=== PATIENT | female | born 1940 | race Caucasian/White ===

== ENCOUNTER 2018-08-15 23:49 | Inpatient (IN) | payer OTHER ==
--- NOTE | 2018-08-15 23:56 | PDOC ---
Attending Attestation - Resident Resident Name: Lloyd Troy - ED Attending Attestation I have performed the following: I have examined & evaluated the patient, The case was reviewed & discussed with the resident, I agree w/resident's findings & plan, Exceptions are as noted - HPI HPI: 08/16/18 00:25 Ms Aleman is a 77 yo F who presents to the ER for evaluation of hemoptysis She has a history of GERD, hypertension, diabetes, hypercapnic respiratory failure s/p trach, chronic renal insufficiency, She was noted to have hemoptysis No fevers Pt noted to be anemic - Physicial Exam PE: 08/16/18 00:31 Pt is pale appearing Contracted Trach in place, blood tinged sputum Rhoncherous breath sounds through out Faint heart sounds No abd tenderness Lin in place Rectal tube in place Bilateral upper extremity edema (R>L) - Medical Decision Making 08/16/18 00:31 Pt presents to the ER due to hemoptysis DD includes: pneumonia, CHF, TB, Aspergilosis, PE Will do: Labs - sepsis orderset CXR IVF ABX EKG Re assess SR rate of 104 bpm, axis nml, intervals nml, no st elevation, RSR' v2, t waves upright, no st elevation or depression 08/16/18 01:50 Laboratory Tests 08/16/18 08/16/18 00:40 01:00 WBC 16.8 H Hgb 7.0 L Hct 21.8 L Plt Count 803 H Neutrophils % 86.6 H ABG pH 7.47 H ABG pCO2 at Pt Temp 42.4 ABG pO2 at Pt Temp 87.2 ABG HCO3 30.7 H ABG O2 Sat (Measured) 97.7 CXR not done yet 08/16/18 02:38 CXR with right lung effusion, pt rotated, Moderate effusion, ? hemorrhage Will do CTA chest Images pending
--- NOTE | 2018-08-15 23:57 | PDOC ---
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 Vital from half-way are 97.8, 98, 18, 120/70. 08/16/18 03:44 Past History - Past Medical History Allergies/Adverse Reactions: Allergies Allergy/AdvReac Type Severity Reaction Status Date / Time clopidogrel Allergy Verified 08/16/18 00:20 Review of Systems - Review of Systems Able to Perform ROS?: No (non-verbal) *Physical Exam - Physical Exam General Appearance: Yes: Other (anansarca un upper half of body. ventilated. trach. Lin. ) HEENT: positive: EOMI, BERE Respiratory/Chest: positive: Chest Tender, Labored Respiration ( ), Decreased Breath Sounds, Crackles Cardiovascular: positive: Regular Rhythm, Regular Rate, S1, S2 Gastrointestinal/Abdominal: positive: Normal Bowel Sounds, Flat, Soft. negative : Tender Integumentary: positive: Pale, Cold, Clammy Neurologic: positive: Other (non-verbal) ED Treatment Course - LABORATORY CBC & Chemistry Diagram: 08/16/18 01:00 08/16/18 01:00 Medical Decision Making - Medical Decision Making 08/16/18 03:57 severe sepsis from UTI vs pneumonia vs acute CHF +/- Pulmonary Embolism. Septic workup ordered. Fever + tachy + elevated WBC + lactate 08/16/18 05:33 UA pending. Starting vanc/zosyn with admission to ICU. Patient DNR. Son signed hospital version of DNR 08/16/18 05:36 CXR showing right plueral effusion. Will obtain CTA to confirm nature of opacity. Concern from radiology that effusion could be blood due to patient's anemia and hemoptysis. Will also r/o PE *DC/Admit/Observation/Transfer Diagnosis at time of Disposition: Sepsis, Pleural effusion, UTI (urinary tract infection) due to urinary indwelling catheter - Discharge Dispostion Condition at time of disposition: Fair Decision to Admit order: Yes - Referrals Referrals: David Fitzgerald MD [Primary Care Provider] - - Patient Instructions - Post Discharge Activity
[2018-08-16 00:45] LABS: ARTERIAL BLD GAS O2 SATURATION 97.7 % (90-98.9); ARTERIAL BLOOD GAS BASE EXCESS 6.9 meq/l (-2-2); ARTERIAL BLOOD GAS PCO2 42.4 mmHg (35-45); ARTERIAL BLOOD GAS PO2 87.2 mmHg (70-100); ARTERIAL BLOOD GAS pH 7.47 (7.35-7.45)
[2018-08-16 00:49] LABS: ALLENS TEST POSITIVE
[2018-08-16 01:36] LABS: BASO % 0.2 % (0-2.0); EOS % 1.2 % (0-4.5); HEMATOCRIT 21.8 % (32.4-45.2); LYMPH % 5.4 % (8-40); MCHC 32.2 g/dl (32.0-36.0); MEAN CELL VOLUME 74.5 fl (80-96); MEAN PLT VOLUME 7.5 fl (7.5-11.1); MONO % 6.6 % (3.8-10.2); NEUT % 86.6 % (42.8-82.8); PLATELET COUNT 803 K/MM3 (134-434); RBC 2.92 M/mm3 (3.60-5.2); RDW 16.8 % (11.6-15.6); WHITE BLOOD COUNT 16.8 K/mm3 (4.0-10.0)
[2018-08-16 01:58] LABS: INR 1.14 (0.83-1.09); PROTHROMBIN TIME (PATIENT) 13.5 SEC (9.7-13.0)
[2018-08-16 02:01] LABS: ACTIVATED PTT 26.7 SECONDS (25.2-36.5)
[2018-08-16 02:19] LABS: ALBUMIN 1.7 g/dl (3.4-5.0); ALK PHOS 151 U/L (45-117); ANION GAP 9 MMOL/L (8-16); BILIRUBIN,TOTAL 0.3 mg/dL (0.2-1); BLOOD UREA NITROGEN 34 mg/dL (7-18); CALCIUM 9.6 mg/dL (8.5-10.1); CHLORIDE 86 mmol/L (98-107); CO2 32 mmol/L (21-32); CREATININE 0.7 mg/dL (0.55-1.3); GLUCOSE,RANDOM 256 mg/dL (74-106); POTASSIUM 4.8 mmol/L (3.5-5.1); SGOT/AST 36 U/L (15-37); SGPT/ALT 41 U/L (13-61); SODIUM 126 mmol/L (136-145); TOT PROT 7.1 g/dl (6.4-8.2)
[2018-08-16] MEDS ORDERED: VANCOMYCIN 1 GRAM (PRE-DOCKED) 1,000 MG/250 ML BAG IVPB ONE ×3 (02:28→15:14)
[2018-08-16] MEDS ORDERED: PIPERACILLIN/TAZOB 4.5 GM 4.5 GM in DEXTROSE 5%-WATER 100 ML IVPB ONE (02:29)
[2018-08-16] MEDS ORDERED: PIPERACILLIN/TAZOB 4.5 GM 4.5 GM/100 ML BAG IVPB ONE (02:33)
[2018-08-16] MEDS ORDERED: SODIUM CHLORIDE 3,402 ML IV ONE (02:39)
[2018-08-16] MEDS ORDERED: FUROSEMIDE 40 MG/4 ML INJECTABLE VIAL IVPUSH ONE (03:03)
[2018-08-16 03:51] LABS: URINE APPEARANCE TURBID; URINE BILIRUBIN NEGATIVE (<2.0 mg/dL); URINE COLOR YELLOW; URINE GLUCOSE (UA) 1+ (NEGATIVE); URINE KETONE NEGATIVE (NEGATIVE); URINE LEUK ESTERASE 2+ (NEGATIVE); URINE NITRITE NEGATIVE (NEGATIVE); URINE PROTEIN 2+ (NEGATIVE); URINE UROBILINOGEN NEGATIVE mg/dL (0.2-1.0)
[2018-08-16 04:07] LABS: EPI CELLS MANY /HPF (FEW); URINE BACTERIA MANY /hpf (NONE SEEN); URINE MUCUS MANY; YEAST RARE
[2018-08-16] MEDS ORDERED: FUROSEMIDE 40 MG/4 ML INJECTABLE VIAL ONE (05:39)
--- NOTE | 2018-08-16 05:52 | HP ---
CHIEF COMPLAINT: Low H/H, Bloody Sputum PCP: Dr Cancino HISTORY OF PRESENT ILLNESS: This is a 77 y/o woman from [facility] significant past medical history of Trach- Vent dependency secondary to Respiratory Failure Hypercapnia, MRSA in Sputum, Renal Insufficiency. Who presents to the ED for low H/H, Bloody Sputum. Patient is non-verbal at baseline, unable to provide HPI. Per transfer record patient was sent in for Hgb 6.5, bloody secretions in trach. ER course was notable for: (1) Hgb 7.0, HCT21.8 (2) Na 126 (3) Lactic Acid 2.5 (4) Chest Xray- Moderate to large right pleural effusion and probable small left pleural effusion. Increased opacity within the right lung ? pulmonary hemorrhage or pneumonia cannot be excluded Recent Travel: none PAST MEDICAL HISTORY: Respiratory Failure, Hypercapnia- Trach- Vent dependency HTN DM GERD MDD CKD Stage 3 Dysphagia COPD MRSA in Sputum PAST SURGICAL HISTORY: Trach Social History: Smoking: Never Alcohol: Unknown Drugs: Unknown Resides in [place], [facility] Family History: Unable to Obtain Allergies clopidogrel Allergy (Verified 08/16/18 00:20) HOME MEDICATIONS: REVIEW OF SYSTEMS Trach Dependent- Non Verbal CONSTITUTIONAL: Absent: fever, chills, diaphoresis, generalized weakness, malaise, loss of appetite, weight change HEENT: Absent: rhinorrhea, nasal congestion, throat pain, throat swelling, difficulty swallowing, mouth swelling, ear pain, eye pain, visual changes CARDIOVASCULAR: Absent: chest pain, syncope, palpitations, irregular heart rate, lightheadedness , peripheral edema RESPIRATORY: Absent: cough, shortness of breath, dyspnea with exertion, orthopnea, wheezing, stridor, hemoptysis GASTROINTESTINAL: Absent: abdominal pain, abdominal distension, nausea, vomiting, diarrhea, constipation, melena, hematochezia GENITOURINARY: Absent: dysuria, frequency, urgency, hesitancy, hematuria, flank pain, genital pain MUSCULOSKELETAL: Absent: myalgia, arthralgia, joint swelling, back pain, neck pain SKIN: Absent: rash, itching, pallor HEMATOLOGIC/IMMUNOLOGIC: Absent: easy bleeding, easy bruising, lymphadenopathy, frequent infections ENDOCRINE: Absent: unexplained weight gain, unexplained weight loss, heat intolerance, cold intolerance NEUROLOGIC: Absent: headache, focal weakness or paresthesias, dizziness, unsteady gait, seizure, mental status changes, bladder or bowel incontinence PSYCHIATRIC: Absent: anxiety, depression, suicidal or homicidal ideation, hallucinations. PHYSICAL EXAMINATION Vital Signs - 24 hr 08/15/18 08/16/18 08/16/18 23:50 00:30 02:46 Temperature 98.7 F Pulse Rate 71 Pulse Rate [ 103 H Left] Respiratory 17 37 H 22 H Rate Blood Pressure 110/71 Blood Pressure 130/90 [Right Arm] O2 Sat by Pulse 99 98 Oximetry (%) 08/16/18 03:25 Temperature Pulse Rate Pulse Rate [ Left] Respiratory 30 H Rate Blood Pressure Blood Pressure [Right Arm] O2 Sat by Pulse Oximetry (%) GENERAL: Trach- Vent dependent non -verbal- at baseline in no acute distress. HEAD: Normal with no signs of trauma. EYES: Pupils equal, round and reactive to light, sclera anicteric, conjunctiva clear. No lid lag. EARS, NOSE, THROAT: thick yellow frothy oral secretions, Ears normal, nares patent, oropharynx clear without exudates. Moist mucous membranes. NECK: .trach- vent dependent Normal range of motion, supple without lymphadenopathy, JVD, or masses. LUNGS: Breath sounds coarse rhonchi with scattered wheeze throughout. No accessory muscle use. HEART: Regular rate and rhythm, normal S1 and S2 without murmur, rub or gallop. ABDOMEN: PEG noted to mid abdomen with dried gastric sections around dressing. Soft, nontender, not distended, normoactive bowel sounds, no guarding, no rebound, no masses. No hepatomegaly or splenomegaly. RECTUM: Rectal tube noted GENITOURINARY: Indewelling Lin with foamy dark yellow urine in tubing and drainage bag MUSCULOSKELETAL: Severe contractures at all joints. No bony deformities or tenderness. No CVA tenderness. UPPER EXTREMITIES: 2+ pulses, warm, well-perfused. No cyanosis. No clubbing. No peripheral edema. LOWER EXTREMITIES: 2+ pulses, warm, well-perfused. No calf tenderness. No peripheral edema. NEUROLOGICAL: Cranial nerves II-XII not intact. Non verbal. Non-ambulatory Gait not observed PSYCHIATRIC: non verbal, no voluntary eye contact- baseline SKIN: macular papular rash to face, warm, dry, normal turgor, normal capillary refill. Laboratory Results - last 24 hr 08/15/18 08/16/18 08/16/18 23:54 00:15 00:40 WBC Cancelled Corrected WBC (auto) Cancelled RBC Cancelled Hgb Cancelled Hct Cancelled MCV Cancelled MCH Cancelled MCHC Cancelled RDW Cancelled Plt Count Cancelled MPV Cancelled Absolute Neuts (auto) Cancelled Neutrophils % Cancelled Lymphocytes % Cancelled Monocytes % Cancelled Eosinophils % Cancelled Basophils % Cancelled Nucleated RBC % Cancelled Platelet Estimate Cancelled Platelet Comment Cancelled PT with INR INR PTT (Actin FS) Puncture Site Right radial ABG pH 7.47 H ABG pCO2 at Pt Temp 42.4 ABG pO2 at Pt Temp 87.2 ABG HCO3 30.7 H ABG O2 Sat (Measured) 97.7 ABG O2 Content 6.8 L* ABG Base Excess 6.9 H French Test Positive Carboxyhemoglobin 2.0 Methemoglobin 0.0 L O2 Delivery Device Vent Oxygen Flow Rate 50 Vent Rate 18 PEEP 5.0 Pressure Support Vent 360 Sodium Potassium Chloride Carbon Dioxide Anion Gap BUN Creatinine Creat Clearance w eGFR Random Glucose Lactic Acid Calcium Total Bilirubin AST ALT Alkaline Phosphatase Troponin I Total Protein Albumin Urine Color Urine Appearance Urine pH Ur Specific Parker Urine Protein Urine Glucose (UA) Urine Ketones Urine Blood Urine Nitrite Urine Bilirubin Urine Urobilinogen Ur Leukocyte Esterase Urine WBC (Auto) Urine RBC (Auto) Ur Epithelial Cells Urine Bacteria Urine Mucus Urine Yeast Blood Type AB POSITIVE Antibody Screen Negative 08/16/18 08/16/18 08/16/18 01:00 01:00 01:00 WBC Corrected WBC (auto) RBC Hgb Hct MCV MCH MCHC RDW Plt Count MPV Absolute Neuts (auto) Neutrophils % Lymphocytes % Monocytes % Eosinophils % Basophils % Nucleated RBC % Platelet Estimate Platelet Comment PT with INR 13.50 H INR 1.14 H PTT (Actin FS) 26.7 Puncture Site ABG pH ABG pCO2 at Pt Temp ABG pO2 at Pt Temp ABG HCO3 ABG O2 Sat (Measured) ABG O2 Content ABG Base Excess French Test Carboxyhemoglobin Methemoglobin O2 Delivery Device Oxygen Flow Rate Vent Rate PEEP Pressure Support Vent Sodium 126 L Potassium 4.8 Chloride 86 L Carbon Dioxide 32 Anion Gap 9 BUN 34 H Creatinine 0.7 Creat Clearance w eGFR > 60 Random Glucose 256 H Lactic Acid 2.5 H* Calcium 9.6 Total Bilirubin 0.3 AST 36 ALT 41 Alkaline Phosphatase 151 H Troponin I < 0.02 Total Protein 7.1 Albumin 1.7 L Urine Color Urine Appearance Urine pH Ur Specific Parker Urine Protein Urine Glucose (UA) Urine Ketones Urine Blood Urine Nitrite Urine Bilirubin Urine Urobilinogen Ur Leukocyte Esterase Urine WBC (Auto) Urine RBC (Auto) Ur Epithelial Cells Urine Bacteria Urine Mucus Urine Yeast Blood Type Antibody Screen 08/16/18 08/16/18 08/16/18 01:00 01:00 02:30 WBC 16.8 H Corrected WBC (auto) RBC 2.92 L Hgb 7.0 L Hct 21.8 L MCV 74.5 L MCH 24.0 L MCHC 32.2 RDW 16.8 H Plt Count 803 H MPV 7.5 Absolute Neuts (auto) 14.5 H Neutrophils % 86.6 H Lymphocytes % 5.4 L Monocytes % 6.6 Eosinophils % 1.2 Basophils % 0.2 Nucleated RBC % 0 Platelet Estimate Platelet Comment PT with INR INR PTT (Actin FS) Puncture Site ABG pH ABG pCO2 at Pt Temp ABG pO2 at Pt Temp ABG HCO3 ABG O2 Sat (Measured) ABG O2 Content ABG Base Excess French Test Carboxyhemoglobin Methemoglobin O2 Delivery Device Oxygen Flow Rate Vent Rate PEEP Pressure Support Vent Sodium Potassium Chloride Carbon Dioxide Anion Gap BUN Creatinine Creat Clearance w eGFR Random Glucose Lactic Acid Calcium Total Bilirubin AST ALT Alkaline Phosphatase Troponin I Cancelled Total Protein Albumin Urine Color Yellow Urine Appearance Turbid Urine pH 5.0 Ur Specific Parker 1.021 Urine Protein 2+ H Urine Glucose (UA) 1+ H Urine Ketones Negative Urine Blood 3+ H Urine Nitrite Negative Urine Bilirubin Negative Urine Urobilinogen Negative Ur Leukocyte Esterase 2+ H Urine WBC (Auto) 1540 Urine RBC (Auto) 310 Ur Epithelial Cells Many Urine Bacteria Many Urine Mucus Many Urine Yeast Rare Blood Type Antibody Screen ASSESSMENT/PLAN: 77 y/o woman admitted to / for Sepsis secondary to UTI, Large Plueral Effusion , Anemia, Acute on Chronic Respiratory Failure, Hypercapnia, Hyponatremia for further evaluation of their emergent condition. Plan: Admit to /S vent dependent floor Sepsis likely secondary to UTI vs HCAP vs Aspiration Pneumonia Sepsis Criteria Met V: P 103, R 34, WBC 16.8, Lactic Acid 2.6, BUN 34 qSOFA 2 Blood cultures-pending Urine culture pending Urine for Legionella Chest Xray read as- large right pleural effusion, smaller left pleural effusion , increased opacity in right lung ?pulmonary hemorrhage or pneumonia cannot be excluded Wells Score 4 PERC Rule 4 CTA-pending r/o PE Fluid Resuscitation initiated in ED Vancomycin and Zosyn given in ED for MRSA, Pseudomonal coverage will continue Repeat Lactic Acid in am Maintain MAP > 65 Continue Vent settings: TV 360, R 18, FIO2 40%, PEEP 5 AB.47/42.4/87.2/30.7 Appreciate Pulmonology consult Appreciate ID consult Consider IR for R- Large Pleural Effusion Monitor vitals Continue duonebs Repeat BMP in am secondary to Hyponatremia Goal sodium correction 6-8meq/24hrs Appreciate Nephrology consult Anemia-monitor H/H will transfuse if Hgb < 7.0 Aspiration precautions Functional Quadriplegia- complete immobility due to frailty, requires total care , turn Q2h, Fer lift as needed, Heel Protectors, Fall precautions Continue home meds with parameters Will hold DM meds secondary to NPO FEN- Replete lytes, NPO DVT ppx- TEDS, Hold AC secondary to Anemia, monitor H/H resume AC as feasible Code Status: DNR Dispo: Requires Inpatient Care Problem List - Problem (1) Pleural effusion Code(s): J90 - PLEURAL EFFUSION, NOT ELSEWHERE CLASSIFIED (2) Sepsis Code(s): A41.9 - SEPSIS, UNSPECIFIED ORGANISM (3) Acute on chronic respiratory failure with hypercapnia Code(s): J96.22 - ACUTE AND CHRONIC RESPIRATORY FAILURE WITH HYPERCAPNIA (4) UTI (urinary tract infection) due to urinary indwelling catheter Code(s): T83.511A - I/I REACT D/T INDWELLING URETHRAL CATHETER, INIT; N39.0 - URINARY TRACT INFECTION, SITE NOT SPECIFIED (5) Tracheostomy care Code(s): Z43.0 - ENCOUNTER FOR ATTENTION TO TRACHEOSTOMY (6) HTN (hypertension) Code(s): I10 - ESSENTIAL (PRIMARY) HYPERTENSION (7) GERD (gastroesophageal reflux disease) Code(s): K21.9 - GASTRO-ESOPHAGEAL REFLUX DISEASE WITHOUT ESOPHAGITIS (8) Anemia Code(s): D64.9 - ANEMIA, UNSPECIFIED (9) Diabetes mellitus Code(s): E11.9 - TYPE 2 DIABETES MELLITUS WITHOUT COMPLICATIONS (10) COPD (chronic obstructive pulmonary disease) Code(s): J44.9 - CHRONIC OBSTRUCTIVE PULMONARY DISEASE, UNSPECIFIED (11) CKD (chronic kidney disease), stage III Code(s): N18.3 - CHRONIC KIDNEY DISEASE, STAGE 3 (MODERATE) (12) Functional quadriplegia Code(s): R53.2 - FUNCTIONAL QUADRIPLEGIA Visit type - Emergency Visit Emergency Visit: Yes ED Registration Date: 08/16/18 Care time: The patient presented to the Emergency Department on the above date and was hospitalized for further evaluation of their emergent condition. - New Patient This patient is new to me today: Yes Date on this admission: 08/16/18 - Critical Care Critical Care patient: No
[2018-08-16] MEDS: ALBUTEROL SO4 2.5/IPRATROPIUM 0.5 INH SOL 3 ML VIAL.NEB. NEB SCH ×4 (09:00→19:40)
--- NOTE | 2018-08-16 09:24 | PN ---
Progress Note, Physician - Current Medication List Current Medications: Active Medications Acetaminophen (Tylenol Oral Solution -) 650 mg GT Q6H PRN PRN Reason: PAIN OR FEVER Albuterol/Ipratropium (Duoneb -) 1 amp NEB RQID SARITA Vancomycin HCl 1,000 mg/ (Dextrose) 250 mls @ 200 mls/hr IVPB Q24H SARITA; Protocol Piperacillin Sod/Tazobactam (Sod 3.375 gm/ Dextrose) 50 mls @ 100 mls/hr IVPB Q8H-IV SARITA; Protocol Piperacillin Sod/Tazobactam (Sod 3.375 gm/ Dextrose) 50 mls @ 100 mls/hr IVPB Q8H-IV SARITA Stop: 08/16/18 18:29 Nicotine (Nicoderm Patch -) 7 mg TD DAILY SARITA Nystatin (Nystop Powder -) 1 applic TP BID SARITA Quetiapine Fumarate (Seroquel -) 100 mg GT BID SARITA Ranitidine HCl (Zantac Oral Solution -) 150 mg GT DAILY [facility] - Objective Vital Signs: Vital Signs Temperature 98.7 F 08/15/18 23:50 Pulse Rate 103 H 08/16/18 02:46 Respiratory Rate 33 H 08/16/18 07:00 Blood Pressure 130/90 08/16/18 02:46 O2 Sat by Pulse Oximetry (%) 98 08/16/18 02:46 Cardiovascular: Yes: S1, S2 Respiratory: Yes: Mechanically Ventilated Gastrointestinal: Yes: Normal Bowel Sounds, Soft Labs: CBC, BMP 08/16/18 01:00 08/16/18 01:00 INR, PTT INR 1.14 (0.83-1.09) H 08/16/18 01:00 Problem List - Problems (1) Acute on chronic respiratory failure with hypercapnia Assessment/Plan: -Vent support -Follow o2 sat -Pulm consult Code(s): J96.22 - ACUTE AND CHRONIC RESPIRATORY FAILURE WITH HYPERCAPNIA (2) Diabetes mellitus Assessment/Plan: -BGM Code(s): E11.9 - TYPE 2 DIABETES MELLITUS WITHOUT COMPLICATIONS (3) Lung malignancy Assessment/Plan: -Review old records -Oncology consult Code(s): C34.90 - MALIGNANT NEOPLASM OF UNSP PART OF UNSP BRONCHUS OR LUNG
[2018-08-16] MEDS ORDERED: NICOTINE 7 MG/24 HOURS TOPICAL PATCH TD SCH (10:00)
[2018-08-16] MEDS: ACETAMINOPHEN 650 MG/20.3 ML ORAL SOLUTION (CUPS) GT PRN (10:00)
[2018-08-16] MEDS: QUEtiapine FUMARATE 100 MG TABLET (FP) GT SCH ×2 (10:00→22:38)
[2018-08-16] MEDS: NYSTATIN POWDER 100,000 UNITS/GM - 15 GM TOPICAL POWDER TP SCH ×2 (10:00→22:38)
[2018-08-16] MEDS: RANITIDINE HCL 150 MG/10 ML UNIT-DOSE GT SCH (10:00)
[2018-08-16] MEDS ORDERED: PIPERACILLIN/TAZOB 3.375 GM 3.375 GM in DEXTROSE 5%-WATER - 50 ML IVPB SCH (10:00)
[2018-08-16] MEDS ORDERED: PIPERACILLIN/TAZOB 3.375 GM 3.375 GM/50 ML BAG IVPB ONE (10:06)
[2018-08-16] MEDS ORDERED: ALBUTEROL SO4 2.5/IPRATROPIUM 0.5 INH SOL 3 ML VIAL.NEB. NEB ONE ×3 (10:17→19:32)
[2018-08-16 10:42] LABS: ANION GAP 11 MMOL/L (8-16); BLOOD UREA NITROGEN 28 mg/dL (7-18); CALCIUM 8.8 mg/dL (8.5-10.1); CHLORIDE 93 mmol/L (98-107); CO2 26 mmol/L (21-32); CREATININE 0.5 mg/dL (0.55-1.3); GLUCOSE,RANDOM 87 mg/dL (74-106); MAGNESIUM 1.9 mg/dL (1.8-2.4); POTASSIUM 4.6 mmol/L (3.5-5.1); SODIUM 130 mmol/L (136-145)
[2018-08-16] MEDS ORDERED: QUEtiapine FUMARATE 100 MG TABLET (FP) ONE ×3 (11:09→22:31)
[2018-08-16] MEDS ORDERED: SODIUM CHLORIDE 500 ML IV STA ×2 (12:05→19:54)
--- NOTE | 2018-08-16 12:16 | CONSULT ---
Consultation: REQUESTING PROVIDER: CONSULT REQUEST: We have been asked to medically evaluate this patient for ( specify). 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 Pt is nonverbal at baseline and HPI is severely limited. We were asked to medically evaluate the patient due to hyponatremia to 126. Repeat labs this AM shows Na is resolving at 130 now. PMHx: Endstage COPD (trach and vent dependent) HTN DM MDD CKD Stage 3 GERD PSHx: Tracheostomy placement SocHx: Unable to obtain Lives in [facility] with total care Allergies: Clopidogrel FamHx: Unable to obtain REVIEW OF SYSTEMS: Unable to obtain due to pt's clinical condition PHYSICAL EXAMINATION Vital Signs - 24 hr 08/15/18 08/16/18 08/16/18 23:50 00:30 02:46 Temperature 98.7 F Pulse Rate 71 Pulse Rate [ 103 H Left] Respiratory 17 37 H 22 H Rate Blood Pressure 110/71 Blood Pressure 130/90 [Right Arm] O2 Sat by Pulse 99 98 Oximetry (%) 08/16/18 08/16/18 08/16/18 03:25 07:00 10:30 Temperature 97.7 F Pulse Rate Pulse Rate [ 97 H Left] Respiratory 30 H 33 H 32 H Rate Blood Pressure Blood Pressure 136/72 [Right Arm] O2 Sat by Pulse 97 Oximetry (%) 08/16/18 11:35 Temperature Pulse Rate Pulse Rate [ 95 H Left] Respiratory 24 H Rate Blood Pressure Blood Pressure 89/58 L [Right Arm] O2 Sat by Pulse 100 Oximetry (%) GENERAL: NAD, nonverbal (baseline), on respiratory, diaphoretic HEENT: NC/AT, RENALDO, sclera anicteric, thick secretions from trach noted. Dry-to -moist MM NECK: Secreations from LUNGS: Coarse breath sounds bilaterally; superimposed basillar expiratory wheezes. No crackles. No accessory muscle use. HEART: Tachycardic with regular rhythm, normal S1 and S2 without murmur ABD: Soft, nondistended, hypoactive BS, no grimmacing with palpation, no hepatomegaly, PEG tube noted with dried secretions around stoma. MUSCULOSKELETAL: Contracted extremities throughout EXTREMITIES: 2+ DP pulses, no peripheral edema NEUROLOGICAL: Unable to obtain due to nonverbal, nonambulatory and pt's clinical condition PSYCH: Eye contact made, nonverbal SKIN: Diaphoretic, warm, erythema on L sided clavicle noted Laboratory Results - last 24 hr 08/15/18 08/16/18 08/16/18 23:54 00:15 00:40 WBC Cancelled Corrected WBC (auto) Cancelled RBC Cancelled Hgb Cancelled Hct Cancelled MCV Cancelled MCH Cancelled MCHC Cancelled RDW Cancelled Plt Count Cancelled MPV Cancelled Absolute Neuts (auto) Cancelled Neutrophils % Cancelled Lymphocytes % Cancelled Monocytes % Cancelled Eosinophils % Cancelled Basophils % Cancelled Nucleated RBC % Cancelled Platelet Estimate Cancelled Platelet Comment Cancelled PT with INR INR PTT (Actin FS) Puncture Site Right radial ABG pH 7.47 H ABG pCO2 at Pt Temp 42.4 ABG pO2 at Pt Temp 87.2 ABG HCO3 30.7 H ABG O2 Sat (Measured) 97.7 ABG O2 Content 6.8 L* ABG Base Excess 6.9 H French Test Positive Carboxyhemoglobin 2.0 Methemoglobin 0.0 L O2 Delivery Device Vent Oxygen Flow Rate 50 Vent Rate 18 PEEP 5.0 Pressure Support Vent 360 Sodium Potassium Chloride Carbon Dioxide Anion Gap BUN Creatinine Creat Clearance w eGFR Random Glucose Lactic Acid Calcium Phosphorus Magnesium Total Bilirubin AST ALT Alkaline Phosphatase Troponin I Total Protein Albumin Urine Color Urine Appearance Urine pH Ur Specific Sterling Urine Protein Urine Glucose (UA) Urine Ketones Urine Blood Urine Nitrite Urine Bilirubin Urine Urobilinogen Ur Leukocyte Esterase Urine WBC (Auto) Urine RBC (Auto) Ur Epithelial Cells Urine Bacteria Urine Mucus Urine Yeast Blood Type AB POSITIVE Antibody Screen Negative 08/16/18 08/16/18 08/16/18 01:00 01:00 01:00 WBC Corrected WBC (auto) RBC Hgb Hct MCV MCH MCHC RDW Plt Count MPV Absolute Neuts (auto) Neutrophils % Lymphocytes % Monocytes % Eosinophils % Basophils % Nucleated RBC % Platelet Estimate Platelet Comment PT with INR 13.50 H INR 1.14 H PTT (Actin FS) 26.7 Puncture Site ABG pH ABG pCO2 at Pt Temp ABG pO2 at Pt Temp ABG HCO3 ABG O2 Sat (Measured) ABG O2 Content ABG Base Excess French Test Carboxyhemoglobin Methemoglobin O2 Delivery Device Oxygen Flow Rate Vent Rate PEEP Pressure Support Vent Sodium 126 L Potassium 4.8 Chloride 86 L Carbon Dioxide 32 Anion Gap 9 BUN 34 H Creatinine 0.7 Creat Clearance w eGFR > 60 Random Glucose 256 H Lactic Acid 2.5 H* Calcium 9.6 Phosphorus Magnesium Total Bilirubin 0.3 AST 36 ALT 41 Alkaline Phosphatase 151 H Troponin I < 0.02 Total Protein 7.1 Albumin 1.7 L Urine Color Urine Appearance Urine pH Ur Specific Sterling Urine Protein Urine Glucose (UA) Urine Ketones Urine Blood Urine Nitrite Urine Bilirubin Urine Urobilinogen Ur Leukocyte Esterase Urine WBC (Auto) Urine RBC (Auto) Ur Epithelial Cells Urine Bacteria Urine Mucus Urine Yeast Blood Type Antibody Screen 08/16/18 08/16/18 08/16/18 01:00 01:00 02:30 WBC 16.8 H Corrected WBC (auto) RBC 2.92 L Hgb 7.0 L Hct 21.8 L MCV 74.5 L MCH 24.0 L MCHC 32.2 RDW 16.8 H Plt Count 803 H MPV 7.5 Absolute Neuts (auto) 14.5 H Neutrophils % 86.6 H Lymphocytes % 5.4 L Monocytes % 6.6 Eosinophils % 1.2 Basophils % 0.2 Nucleated RBC % 0 Platelet Estimate Platelet Comment PT with INR INR PTT (Actin FS) Puncture Site ABG pH ABG pCO2 at Pt Temp ABG pO2 at Pt Temp ABG HCO3 ABG O2 Sat (Measured) ABG O2 Content ABG Base Excess French Test Carboxyhemoglobin Methemoglobin O2 Delivery Device Oxygen Flow Rate Vent Rate PEEP Pressure Support Vent Sodium Potassium Chloride Carbon Dioxide Anion Gap BUN Creatinine Creat Clearance w eGFR Random Glucose Lactic Acid Calcium Phosphorus Magnesium Total Bilirubin AST ALT Alkaline Phosphatase Troponin I Cancelled Total Protein Albumin Urine Color Yellow Urine Appearance Turbid Urine pH 5.0 Ur Specific Sterling 1.021 Urine Protein 2+ H Urine Glucose (UA) 1+ H Urine Ketones Negative Urine Blood 3+ H Urine Nitrite Negative Urine Bilirubin Negative Urine Urobilinogen Negative Ur Leukocyte Esterase 2+ H Urine WBC (Auto) 1540 Urine RBC (Auto) 310 Ur Epithelial Cells Many Urine Bacteria Many Urine Mucus Many Urine Yeast Rare Blood Type Antibody Screen 08/16/18 08/16/18 08/16/18 05:45 09:47 10:06 WBC Corrected WBC (auto) RBC Hgb Hct MCV MCH MCHC RDW Plt Count MPV Absolute Neuts (auto) Neutrophils % Lymphocytes % Monocytes % Eosinophils % Basophils % Nucleated RBC % Platelet Estimate Platelet Comment PT with INR INR PTT (Actin FS) Puncture Site ABG pH ABG pCO2 at Pt Temp ABG pO2 at Pt Temp ABG HCO3 ABG O2 Sat (Measured) ABG O2 Content ABG Base Excess French Test Carboxyhemoglobin Methemoglobin O2 Delivery Device Oxygen Flow Rate Vent Rate PEEP Pressure Support Vent Sodium 130 L Potassium 4.6 Chloride 93 L Carbon Dioxide 26 Anion Gap 11 BUN 28 H Creatinine 0.5 L Creat Clearance w eGFR > 60 Random Glucose 87 Lactic Acid 2.0 Calcium 8.8 Phosphorus 3.0 Magnesium 1.9 Total Bilirubin AST ALT Alkaline Phosphatase Troponin I Total Protein Albumin Urine Color Urine Appearance Urine pH Ur Specific Sterling Urine Protein Urine Glucose (UA) Urine Ketones Urine Blood Urine Nitrite Urine Bilirubin Urine Urobilinogen Ur Leukocyte Esterase Urine WBC (Auto) Urine RBC (Auto) Ur Epithelial Cells Urine Bacteria Urine Mucus Urine Yeast Blood Type AB POSITIVE Antibody Screen Active Medications Generic Name Dose Route Start Last Admin Trade Name Freq PRN Reason Stop Dose Admin Acetaminophen 650 mg 08/16/18 06:22 08/16/18 10:00 Tylenol Oral Solution - GT 650 mg Q6H PRN Administration PAIN OR FEVER Albuterol/Ipratropium 1 amp 08/16/18 08:00 08/16/18 09:00 Duoneb - NEB 1 amp RQID SARITA Administration Vancomycin HCl 1,000 mg/ 250 mls @ 200 mls/hr 08/17/18 03:00 Dextrose IVPB Q24H SARITA Protocol Piperacillin Sod/Tazobactam 50 mls @ 100 mls/hr 08/17/18 02:00 Sod 3.375 gm/ Dextrose IVPB Q8H-IV SARITA Protocol Piperacillin Sod/Tazobactam 50 mls @ 100 mls/hr 08/16/18 10:00 08/16/18 10:00 Sod 3.375 gm/ Dextrose IVPB 08/16/18 18:29 100 mls/hr Q8H-IV SARITA Administration Sodium Chloride 500 mls @ 500 mls/hr 08/16/18 12:05 Normal Saline - IV 08/16/18 13:04 ASDIR STA Nystatin 1 applic 08/16/18 10:00 08/16/18 10:00 Nystop Powder - TP 1 spr BID SARITA Administration Quetiapine Fumarate 100 mg 08/16/18 10:00 08/16/18 10:00 Seroquel - GT 100 mg BID SARITA Administration Ranitidine HCl 150 mg 08/16/18 10:00 08/16/18 10:00 Zantac Oral Solution - GT 150 mg DAILY SARITA Administration ASSESSMENT/PLAN: Hyponatremia CKD Stage 3 Proteinuria Sepsis 2/2 to UTI ? Advanced malignancy Endstage COPD Tracheostomy Pleural effusion MDD HTN DM Hyponatremia likely 2/2 to MDD medications vs. paraneoplastic syndrome given advanced lung dz and superior mediastainal LN Na is trending towards normalization; currently 130. --Correct Na by 8 mEq per 24hrs (goal today max 134) Obtain serum Osm and Urine Osm for hyponatremia workup; ordered Urine Na ordered Rpt labs in AM for Na Antibiotics per ID Rest per primary team mgmt Code status: DNR Dispo: Monitor Na; rpt labs in AM. Thank you for this consultative opportunity. Case discussed with Dr. Yesica Wagner, DO - IM PGY-2 Visit type - Emergency Visit Emergency Visit: Yes ED Registration Date: 08/16/18 Care time: The patient presented to the Emergency Department on the above date and was hospitalized for further evaluation of their emergent condition. - New Patient This patient is new to me today: Yes Date on this admission: 08/16/18 - Critical Care Critical Care patient: No
--- NOTE | 2018-08-16 12:36 | PN ---
Progress Note (short form) - Note Progress Note: ID Consult dictated Sepsis/ septic shock Large R pleural effusion/ superior mediastinal mass with rib destruction Chronic resp failure UTI Anemia Hx MRSA Pending c/s empiric zosyn/ vancomycin Critical care time 40 min
--- NOTE | 2018-08-16 12:43 | CON.PULM ---
Consult Consult Specialty:: PULM/CCM Referred by:: JANEE Reason for Consultation:: Chronic Respiratory Failure - History of Present Illness History of Present Illness: 77 F, chronic respiratory failure, Tracheostomy, vent dependent, chronic hypercapnia, MRSA in sputum, and renal insufficiency. Patient was admitted via the ER due to a low H/H and was noted to have bloody sputum. She is non-verbal at baseline. Hgb: 6.5. Suctioned secretions are noted to be bloody. CT imaging: significantly opacified right hemothorax combination of mass and effusion (chart does not list any oncologic history). Vascular stent noted to be narrowed. Rib/bony destruction. No central PE. . - History Source History Provided By: Medical Record Limitations to Obtaining History: Clinical Condition - Alcohol/Substance Use Hx Alcohol Use: No - Smoking History Smoking history: Never smoked Have you smoked in the past 12 months: No Home Medications - Allergies Allergies/Adverse Reactions: Allergies Allergy/AdvReac Type Severity Reaction Status Date / Time clopidogrel Allergy Verified 08/16/18 00:20 - Home Medications Home Medications: Ambulatory Orders Acetaminophen [Tylenol -] 650 mg GT DAILY PRN 08/16/18 Acetaminophen [Tylenol -] 650 mg GT Q6H PRN 08/16/18 Albuterol 2.5/Ipratropium 0.5 [Duoneb -] 1 neb IH QID 08/16/18 Collagenase Clostridium Hist. [Santyl] 1 applic TP DAILY 08/16/18 Famotidine [Pepcid -] 20 mg GT DAILY 08/16/18 Furosemide [Lasix] 40 mg GT DAILY 08/16/18 Insulin Detemir [Levemir Flextouch] 15 unit SQ HS 08/16/18 Insulin NPH Human Isophane [Humulin N Kwikpen] 100 unit SQ Q8H 08/16/18 Nicotine [Nicotine Patch 7 mg/24 hr] 1 each TD DAILY 08/16/18 Nystatin Powder [Nystop Topical Powder -] 15 gm TP Q12H 08/16/18 Quetiapine Fumarate [Seroquel] 100 mg GT Q12H 08/16/18 Saliva Stimulant Comb. No.3 [Biotene Moisturizing Mouth] 44.3 ml MM Q12H Review of Systems Unable to obtain ROS, reason: not able to provide Physical Exam Vital Sings: Vital Signs Temperature 99 F 08/16/18 12:35 Pulse Rate 95 H 08/16/18 11:35 Respiratory Rate 24 H 08/16/18 11:35 Blood Pressure 89/58 L 08/16/18 11:35 O2 Sat by Pulse Oximetry (%) 100 08/16/18 11:35 Constitutional: Yes: Obese, Other (vented via Trach, nonverbal ) Eyes: Yes: Conjunctiva Clear. No: Sclera Icterus HENT: Yes: Atraumatic, Normocephalic Neck: Yes: Other (Tracheostomy intact ) Cardiovascular: Yes: Regular Rate and Rhythm Respiratory: Yes: Accessory Muscle Use, Diminished, Mechanically Ventilated, Rhonchi, Tachypnea. No: Wheezes ...Clubbing: No Gastrointestinal: Yes: Normal Bowel Sounds, Soft, Abdomen, Obese Musculoskeletal: Yes: WNL Extremities: Yes: WNL Edema: No Peripheral Pulses WNL: Yes Neurological: Yes: Confusion, Pre-Existing Deficit, Other (nonverbal ) Labs: CBC, BMP 08/16/18 01:00 08/16/18 09:47 ABG Results ABG pH 7.47 (7.35-7.45) H 08/16/18 00:40 ABG pCO2 at Pt Temp 42.4 mmHg (35-45) 08/16/18 00:40 ABG pO2 at Pt Temp 87.2 mmHg (70-100) 08/16/18 00:40 ABG HCO3 30.7 meq/L (22-26) H 08/16/18 00:40 ABG O2 Sat (Measured) 97.7 % (90-98.9) 08/16/18 00:40 ABG O2 Content 6.8 % vol (15-22) L* 08/16/18 00:40 ABG Base Excess 6.9 meq/l (-2-2) H 08/16/18 00:40 Imaging - Results Chest X-ray: Report Reviewed, Image Reviewed Cat Scan: Report Reviewed, Image Reviewed Problem List - Problems (1) Chronic respiratory failure Code(s): J96.10 - CHRONIC RESPIRATORY FAILURE, UNSP W HYPOXIA OR HYPERCAPNIA (2) Lung malignancy Code(s): C34.90 - MALIGNANT NEOPLASM OF UNSP PART OF UNSP BRONCHUS OR LUNG (3) Anemia Code(s): D64.9 - ANEMIA, UNSPECIFIED (4) CKD (chronic kidney disease), stage III Code(s): N18.3 - CHRONIC KIDNEY DISEASE, STAGE 3 (MODERATE) (5) COPD (chronic obstructive pulmonary disease) Code(s): J44.9 - CHRONIC OBSTRUCTIVE PULMONARY DISEASE, UNSPECIFIED (6) Diabetes mellitus Code(s): E11.9 - TYPE 2 DIABETES MELLITUS WITHOUT COMPLICATIONS (7) GERD (gastroesophageal reflux disease) Code(s): K21.9 - GASTRO-ESOPHAGEAL REFLUX DISEASE WITHOUT ESOPHAGITIS (8) HTN (hypertension) Code(s): I10 - ESSENTIAL (PRIMARY) HYPERTENSION (9) Pleural effusion Code(s): J90 - PLEURAL EFFUSION, NOT ELSEWHERE CLASSIFIED (10) Tracheostomy care Code(s): Z43.0 - ENCOUNTER FOR ATTENTION TO TRACHEOSTOMY Assessment/Plan Radiographic imaging consistent with advanced malignancy. No diagnosis is mentioned in the chart and the patient is not able to provide any history. Need to acquire more information. AC Mode of vent. Suction as needed. Trach is intact and a suction catheter can be passed in its entirety Normal transfusion thresholds Empiric ABX per ID Noted DNR No indication for ICU level of monitoring Given advanced disease would opt for conservative/comfort measures Will follow Thank you. Dr Looney
--- NOTE | 2018-08-16 13:16 | CONS ---
DATE OF CONSULTATION: 08/16/2018 The patient is a 77-year-old female who is evaluated for septic shock. History was obtained from the chart, as she cannot give a history. She is a half-way resident. She has a history of chronic respiratory failure, status post tracheostomy and feeding gastrostomy. She was transferred from the half-way after she was noted to have bloody secretions from the tracheostomy and anemia. She was evaluated in the emergency room, where patient was found to be hypotensive with a blood pressure of 89/58 and tachycardic. Cultures were obtained. She was empirically treated with vancomycin and Zosyn. On initial evaluation, she was noted to have pyuria. A CAT scan of the chest was performed. It was negative for pulmonary embolism, however, showed a large right-sided pleural effusion and atelectasis occupying the entire left hemithorax, as well as a superior mediastinal mass with evidence of destruction of the right first rib. She cannot give any additional history. According to the notes, she has had a history of MRSA in the past and has a stage 4 sacral decubitus ulcer. PAST MEDICAL HISTORY: Positive for chronic hypercapnic respiratory failure, status post tracheostomy, COPD, hypertension, diabetes mellitus, chronic kidney disease, gastroesophageal reflux, history of MRSA in the sputum. ALLERGIES: To PLAVIX. Medications at the present time include vancomycin, Zosyn, Tylenol, Seroquel, Zantac. SOCIAL HISTORY: She is a half-way resident. She is dependent in activities of daily living. SYSTEMS REVIEW: Neurologic: No seizure activity or focal weakness reported. Cardiac: Positive for hypertension and tachycardia. Respiratory: Chronic respiratory failure. Gastrointestinal: Status post feeding gastrostomy. Genitourinary: Positive for urinary tract infection. LABORATORY DATA: White count 16.8, 86 neutrophils, 5 lymphocytes, 6 monocytes, hematocrit 21.8, platelet count 803. BUN 28, creatinine 0.5. Urinalysis: 1540 white cells. Total bilirubin 0.5, alkaline phosphatase 151, AST 36. CAT scan of the chest as described. PHYSICAL EXAMINATION: General: She is awake. She is responsive to tactile stimulus. Vital Signs: Temperature 97.7. Blood pressure 89/58. Pulse 95, regular. Respirations 24 per minute. ENT: Sclerae anicteric. The patient has a tracheostomy in place. There is erythema present in the right shoulder area. Heart Sounds: S1, S2. Lungs: Air entry bilaterally. Diminished breath sounds, right lung field. Abdomen: Obese, soft, nontender. Feeding gastrostomy site. No erythema or drainage. Skin: There is a stage 4 sacral decubitus ulcer. Extremities: Positive for edema. Genitourinary: A Lin catheter is in place. Urine is cloudy. IMPRESSION: 1. Sepsis/septic shock. 2. Large right pleural effusion/superior mediastinal mass with rib destruction. 3. Chronic respiratory failure. 4. Urinary tract infection. 5. Sacral decubitus ulcer. 6. Severe anemia. 7. History of methicillin-resistant Staphylococcus aureus. Several potential sources for sepsis in this patient include respiratory tract, urinary tract, and decubitus ulcer. Pending sepsis workup, empiric antibiotic coverage with Zosyn and vancomycin. Supportive measures. Hemodynamic and ventilatory support. Contact precautions. Prognosis is poor. Will follow. Critical care time spent: 40 minutes. Thank you for the kind referral. JADYN VEGA M.D. [id number]
[2018-08-16 14:44] LABS: OSMOLALITY,SERUM 283 mosm/kg (278-305)
[2018-08-16] MEDS: VANCOMYCIN 1 GRAM (PRE-DOCKED) 1,000 MG/250 ML BAG IVPB SCH (15:22)
--- NOTE | 2018-08-16 16:27 | EKG ---
Test Reason : Blood Pressure : / mmHG Vent. Rate : 104 BPM Atrial Rate : 104 BPM P-R Int : 140 ms QRS Dur : 086 ms QT Int : 326 ms P-R-T Axes : 069 017 049 degrees QTc Int : 428 ms SINUS TACHYCARDIA POOR R WAVE PROGRESSION ABNORMAL ECG NO PREVIOUS ECGS AVAILABLE Confirmed by MD Ricci, Riley ([id number]) on 08/16/2018 4:27:02 PM Referred By: Confirmed By:Riley Wynne MD
--- NOTE | 2018-08-16 16:52 | PN ---
Teaching Attending Note Name of Resident: Emanuel Wagner (Nephrology) ATTENDING PHYSICIAN STATEMENT I saw and evaluated the patient. I reviewed the resident's note and discussed the case with the resident. I agree with the resident's findings and plan as documented. Renal Pt is a 77 year old female with pmhx of HTN, DM, CKD, MRSA, lung cancer, and chronic respiratory failure who was sent in for low hg. Pt is not able to give history. She was found to be hyponatremic and I was called to evaluate her. Pt also had hemoptysis. pmhx htn dm ckd lung cancer pshx trach allergies clopidogrel ros unable to obtain family hx non contrib Current Medications Generic Name Dose Route Start Last Admin Trade Name Freq PRN Reason Stop Dose Admin Acetaminophen 650 mg 08/16/18 06:22 08/16/18 10:00 Tylenol Oral Solution - GT 650 mg Q6H PRN Administration PAIN OR FEVER Albuterol/Ipratropium 1 amp 08/16/18 08:00 08/16/18 16:20 Duoneb - NEB 1 amp RQID SARITA Administration Piperacillin Sod/Tazobactam 50 mls @ 100 mls/hr 08/16/18 18:00 Sod 3.375 gm/ Dextrose IVPB Q8H-IV SARITA Protocol Vancomycin HCl 1,000 mg in 250 mls @ 166.667 mls/hr 08/16/18 15:00 08/16/18 15:22 Vancomycin (Pre-Docked) IVPB 166.667 mls/hr Q12H SARITA Administration Protocol Nystatin 1 applic 08/16/18 10:00 08/16/18 10:00 Nystop Powder - TP 1 spr BID SARITA Administration Quetiapine Fumarate 100 mg 08/16/18 10:00 08/16/18 10:00 Seroquel - GT 100 mg BID SARITA Administration Ranitidine HCl 150 mg 08/16/18 10:00 08/16/18 10:00 Zantac Oral Solution - GT 150 mg DAILY SARITA Administration Laboratory Tests 08/16/18 08/16/18 08/16/18 01:00 01:00 01:00 WBC 16.8 H Hgb 7.0 L Plt Count 803 H Sodium 126 L Potassium Chloride Carbon Dioxide BUN Creatinine Lactic Acid 2.5 H* Urine Protein Urine Blood Urine Osmolality 08/16/18 08/16/18 08/16/18 02:30 05:45 09:47 WBC Hgb Plt Count Sodium 130 L Potassium 4.6 Chloride 93 L Carbon Dioxide 26 BUN 28 H Creatinine 0.5 L Lactic Acid 2.0 Urine Protein 2+ H Urine Blood 3+ H Urine Osmolality 08/16/18 15:00 WBC Hgb Plt Count Sodium Potassium Chloride Carbon Dioxide BUN Creatinine Lactic Acid Urine Protein Urine Blood Urine Osmolality 575 Last Vital Signs Temp Pulse Resp BP Pulse Ox 99 F 96 H 29 H 100/69 100 08/16/18 12:35 08/16/18 15:02 08/16/18 16:27 08/16/18 15:02 08/16/18 15:02 cardio s1s2 heent trach resp bilateral vent sound GI soft, peg velazquez ext neg edema neuro awake Impression 1. Hyponatremia 2. resp failure 3. lung cancer 4. DM 5. hx lung cancer 6. GERD 7. hx MRSA Plan - check urine and plasma osm - check urine osm - pt did respond to saline - with history of lung cancer and significant lung disease, siadh is in the differential - vent support - follow cultures Dr Robert
[2018-08-16] MEDS: PIPERACILLIN/TAZOB 3.375 GM 3.375 GM in DEXTROSE 5%-WATER - 50 ML IVPB SCH (18:18)
[2018-08-17] MEDS ORDERED: PIPERACILLIN/TAZOBACTAM 3.375 GM VIAL IVPB ONE ×3 (01:00→16:02)
[2018-08-17] MEDS ORDERED: DEXTROSE 5%-WATER - 50 ML IVPB ONE ×3 (01:01→16:02)
[2018-08-17] MEDS ORDERED: PIPERACILLIN/TAZOB 3.375 GM 3.375 GM in DEXTROSE 5%-WATER - 50 ML IVPB SCH (02:00)
[2018-08-17] MEDS: PIPERACILLIN/TAZOB 3.375 GM 3.375 GM in DEXTROSE 5%-WATER - 50 ML IVPB SCH ×3 (02:16→17:26)
[2018-08-17] MEDS ORDERED: VANCOMYCIN 1,000 MG in DEXTROSE 5%-WATER - 250 ML IVPB SCH (03:00)
[2018-08-17] MEDS: VANCOMYCIN 1 GRAM (PRE-DOCKED) 1,000 MG/250 ML BAG IVPB SCH ×2 (03:01→15:22)
[2018-08-17 06:47] LABS: BASO % 0.3 % (0-2.0); EOS % 1.2 % (0-4.5); LYMPH % 4.2 % (8-40); MCHC 30.9 g/dl (32.0-36.0); MEAN CELL VOLUME 74.4 fl (80-96); MEAN PLT VOLUME 7.1 fl (7.5-11.1); MONO % 5.1 % (3.8-10.2); NEUT % 89.2 % (42.8-82.8); PLATELET COUNT 720 K/MM3 (134-434); RBC 2.55 M/mm3 (3.60-5.2); RDW 17.1 % (11.6-15.6); WHITE BLOOD COUNT 17.9 K/mm3 (4.0-10.0)
[2018-08-17 07:01] LABS: HEMOGLOBIN 5.9 GM/dL (10.7-15.3)
[2018-08-17] MEDS: ALBUTEROL SO4 2.5/IPRATROPIUM 0.5 INH SOL 3 ML VIAL.NEB. NEB SCH ×4 (07:39→20:33)
[2018-08-17 07:44] LABS: ANION GAP 12 MMOL/L (8-16); BLOOD UREA NITROGEN 25 mg/dL (7-18); CALCIUM 9.2 mg/dL (8.5-10.1); CHLORIDE 92 mmol/L (98-107); CO2 27 mmol/L (21-32); CREATININE 0.5 mg/dL (0.55-1.3); GLUCOSE,RANDOM 142 mg/dL (74-106); POTASSIUM 4.3 mmol/L (3.5-5.1); SODIUM 130 mmol/L (136-145)
[2018-08-17] MEDS ORDERED: QUEtiapine FUMARATE 50 MG TABLET ONE ×2 (09:20→20:55)
--- NOTE | 2018-08-17 09:55 | PN ---
Progress Note, Physician Chief Complaint: EVENTS AND NOTES REVIEWED PATIENT RESPONDING TO VERBAL STIMULI NPO BECAUSE OF ANEMIA PRBC TRANSFUSION - Current Medication List Current Medications: Active Medications Acetaminophen (Tylenol Oral Solution -) 650 mg GT Q6H PRN PRN Reason: PAIN OR FEVER Last Admin: 08/16/18 10:00 Dose: 650 mg Albuterol/Ipratropium (Duoneb -) 1 amp NEB RQID [facility] Last Admin: 08/17/18 07:39 Dose: 1 amp Piperacillin Sod/Tazobactam (Sod 3.375 gm/ Dextrose) 50 mls @ 100 mls/hr IVPB Q8H-IV [facility]; Protocol Last Admin: 08/17/18 02:16 Dose: 100 mls/hr Vancomycin HCl (Vancomycin (Pre-Docked)) 1,000 mg in 250 mls @ 166.667 mls/hr IVPB Q12H [facility]; Protocol Last Admin: 08/17/18 03:01 Dose: 166.667 mls/hr Nystatin (Nystop Powder -) 1 applic TP BID [facility] Last Admin: 08/16/18 22:38 Dose: Not Given Quetiapine Fumarate (Seroquel -) 100 mg GT BID [facility] Last Admin: 08/16/18 22:38 Dose: 100 mg Ranitidine HCl (Zantac Oral Solution -) 150 mg GT DAILY [facility] Last Admin: 08/16/18 10:00 Dose: 150 mg - Objective Vital Signs: Vital Signs Temperature 99.1 F 08/17/18 06:00 Pulse Rate 91 H 08/17/18 06:00 Respiratory Rate 18 08/17/18 09:42 Blood Pressure 101/51 L 08/17/18 06:00 O2 Sat by Pulse Oximetry (%) 100 08/16/18 22:39 Constitutional: Yes: Mild Distress Eyes: Yes: Other HENT: Yes: WNL Neck: Yes: WNL Cardiovascular: Yes: Pulse Irregular Respiratory: Yes: Cough, Rhonchi, Other (TRACH COLLAR) Gastrointestinal: Yes: Soft, Other (GTUBE) Musculoskeletal: Yes: Muscle Weakness Extremities: Yes: Other Integumentary: Yes: Pressure Ulcer, Venous Stasis Changes Wound/Incision: Yes: Dressing Dry and Intact Neurological: Yes: Pre-Existing Deficit Labs: CBC, BMP 08/17/18 06:15 08/17/18 06:15 INR, PTT INR 1.14 (0.83-1.09) H 08/16/18 01:00 Problem List - Problems (1) Acute on chronic respiratory failure with hypercapnia Code(s): J96.22 - ACUTE AND CHRONIC RESPIRATORY FAILURE WITH HYPERCAPNIA (2) Anemia Code(s): D64.9 - ANEMIA, UNSPECIFIED (3) CKD (chronic kidney disease), stage III Code(s): N18.3 - CHRONIC KIDNEY DISEASE, STAGE 3 (MODERATE) (4) Chronic respiratory failure Code(s): J96.10 - CHRONIC RESPIRATORY FAILURE, UNSP W HYPOXIA OR HYPERCAPNIA (5) Diabetes mellitus Code(s): E11.9 - TYPE 2 DIABETES MELLITUS WITHOUT COMPLICATIONS (6) Functional quadriplegia Code(s): R53.2 - FUNCTIONAL QUADRIPLEGIA (7) GERD (gastroesophageal reflux disease) Code(s): K21.9 - GASTRO-ESOPHAGEAL REFLUX DISEASE WITHOUT ESOPHAGITIS (8) HTN (hypertension) Code(s): I10 - ESSENTIAL (PRIMARY) HYPERTENSION (9) Hyponatremia Code(s): E87.1 - HYPO-OSMOLALITY AND HYPONATREMIA (10) Lung malignancy Code(s): C34.90 - MALIGNANT NEOPLASM OF UNSP PART OF UNSP BRONCHUS OR LUNG (11) Pleural effusion Code(s): J90 - PLEURAL EFFUSION, NOT ELSEWHERE CLASSIFIED (12) Sepsis Code(s): A41.9 - SEPSIS, UNSPECIFIED ORGANISM (13) Tracheostomy care Code(s): Z43.0 - ENCOUNTER FOR ATTENTION TO TRACHEOSTOMY Assessment/Plan IV ABX/NEBS/02 SUPPORT PULMONARY EVAL ONCOLOGY CONSULT CALLED H/O OF SQUAMOUS CELL CANCER DIAGNOSED AND WORKED UP AT [facility] ANEMIA FROM SEPSIS AND MALGINANCY MONITOR LEVELS TRANSFUSE PRBC CHECK LABS RENAL EVAL HYPONATREMIA/CRI
[2018-08-17] MEDS: QUEtiapine FUMARATE 100 MG TABLET (FP) GT SCH ×2 (10:19→22:14)
[2018-08-17] MEDS: RANITIDINE HCL 150 MG/10 ML UNIT-DOSE GT SCH (10:19)
[2018-08-17] MEDS: ACETAMINOPHEN 650 MG/20.3 ML ORAL SOLUTION (CUPS) GT PRN (10:20)
[2018-08-17] MEDS: NYSTATIN POWDER 100,000 UNITS/GM - 15 GM TOPICAL POWDER TP SCH ×2 (10:23→22:25)
[2018-08-17 11:53] LABS: ANISOCYTOSIS 1+; MACROCYTOSIS 0; PLATELET ESTIMATE INCREASED
[2018-08-17 12:25] VITALS: BMI 22.8
--- NOTE | 2018-08-17 12:30 | PN ---
Progress Note, Physician History of Present Illness: Pt seen and examined at bedside. She is now in the medical [facility]. Pt is drowsy. - Current Medication List Current Medications: Active Medications Acetaminophen (Tylenol Oral Solution -) 650 mg GT Q6H PRN PRN Reason: PAIN OR FEVER Last Admin: 08/17/18 10:20 Dose: 650 mg Albuterol/Ipratropium (Duoneb -) 1 amp NEB RQID [facility] Last Admin: 08/17/18 11:02 Dose: 1 amp Piperacillin Sod/Tazobactam (Sod 3.375 gm/ Dextrose) 50 mls @ 100 mls/hr IVPB Q8H-IV [facility]; Protocol Last Admin: 08/17/18 10:19 Dose: 100 mls/hr Vancomycin HCl (Vancomycin (Pre-Docked)) 1,000 mg in 250 mls @ 166.667 mls/hr IVPB Q12H [facility]; Protocol Last Admin: 08/17/18 03:01 Dose: 166.667 mls/hr Nystatin (Nystop Powder -) 1 applic TP BID [facility] Last Admin: 08/17/18 10:23 Dose: Not Given Quetiapine Fumarate (Seroquel -) 100 mg GT BID [facility] Last Admin: 08/17/18 10:19 Dose: 100 mg Ranitidine HCl (Zantac Oral Solution -) 150 mg GT DAILY [facility] Last Admin: 08/17/18 10:19 Dose: 150 mg - Objective Vital Signs: Vital Signs Temperature 99.3 F 08/17/18 10:18 Pulse Rate 93 H 08/17/18 10:18 Respiratory Rate 19 08/17/18 10:18 Blood Pressure 113/59 L 08/17/18 10:18 O2 Sat by Pulse Oximetry (%) 100 08/16/18 22:39 Constitutional: Yes: Calm Eyes: Yes: Conjunctiva Clear Neck: Yes: Other (trache) Respiratory: Yes: Mechanically Ventilated Gastrointestinal: Yes: Soft, Other (peg) Genitourinary: Yes: Incontinence Musculoskeletal: Yes: Muscle Weakness Edema: Yes Edema: LUE: 1+, RUE: 1+ Neurological: Yes: Lethargy Labs: CBC, BMP 08/17/18 06:15 08/17/18 06:15 INR, PTT INR 1.14 (0.83-1.09) H 08/16/18 01:00 Problem List - Problems (1) Hyponatremia Code(s): E87.1 - HYPO-OSMOLALITY AND HYPONATREMIA (2) CKD (chronic kidney disease), stage III Code(s): N18.3 - CHRONIC KIDNEY DISEASE, STAGE 3 (MODERATE) (3) COPD (chronic obstructive pulmonary disease) Code(s): J44.9 - CHRONIC OBSTRUCTIVE PULMONARY DISEASE, UNSPECIFIED (4) Chronic respiratory failure Code(s): J96.10 - CHRONIC RESPIRATORY FAILURE, UNSP W HYPOXIA OR HYPERCAPNIA (5) Diabetes mellitus Code(s): E11.9 - TYPE 2 DIABETES MELLITUS WITHOUT COMPLICATIONS Assessment/Plan Current Medications Generic Name Dose Route Start Last Admin Trade Name Freq PRN Reason Stop Dose Admin Acetaminophen 650 mg 08/16/18 06:22 08/17/18 10:20 Tylenol Oral Solution - GT 650 mg Q6H PRN Administration PAIN OR FEVER Albuterol/Ipratropium 1 amp 08/16/18 08:00 08/17/18 11:02 Duoneb - NEB 1 amp RQID [facility] Administration Piperacillin Sod/Tazobactam 50 mls @ 100 mls/hr 08/16/18 18:00 08/17/18 10:19 Sod 3.375 gm/ Dextrose IVPB 100 mls/hr Q8H-IV [facility] Administration Protocol Vancomycin HCl 1,000 mg in 250 mls @ 166.667 mls/hr 08/16/18 15:00 08/17/18 03:01 Vancomycin (Pre-Docked) IVPB 166.667 mls/hr Q12H [facility] Administration Protocol Nystatin 1 applic 08/16/18 10:00 08/17/18 10:23 Nystop Powder - TP Not Given BID [facility] Quetiapine Fumarate 100 mg 08/16/18 10:00 08/17/18 10:19 Seroquel - GT 100 mg BID [facility] Administration Ranitidine HCl 150 mg 08/16/18 10:00 08/17/18 10:19 Zantac Oral Solution - GT 150 mg DAILY [facility] Administration Laboratory Tests 08/16/18 08/16/18 15:00 19:34 Urine Osmolality 575 Ur Random Sodium < 18 L Impression 1. Hyponatremia 2. resp failure 3. lung cancer 4. DM 5. hx lung cancer 6. GERD 7. hx MRSA Plan - sodium stabilizing - pt getting prbc - pt will start feeds today - bp improving - pt does have upper ext edema - urine sodium is low which is consistent with prerenal disease, pt also did respond to saline - vent support - follow cultures
--- NOTE | 2018-08-17 13:44 | PN ---
Progress Note, Physician History of Present Illness: pulmonary poorly responsive on vent support ac mode - Current Medication List Current Medications: Active Medications Acetaminophen (Tylenol Oral Solution -) 650 mg GT Q6H PRN PRN Reason: PAIN OR FEVER Last Admin: 08/17/18 10:20 Dose: 650 mg Albuterol/Ipratropium (Duoneb -) 1 amp NEB RQID [facility] Last Admin: 08/17/18 11:02 Dose: 1 amp Piperacillin Sod/Tazobactam (Sod 3.375 gm/ Dextrose) 50 mls @ 100 mls/hr IVPB Q8H-IV [facility]; Protocol Last Admin: 08/17/18 10:19 Dose: 100 mls/hr Vancomycin HCl (Vancomycin (Pre-Docked)) 1,000 mg in 250 mls @ 166.667 mls/hr IVPB Q12H [facility]; Protocol Last Admin: 08/17/18 03:01 Dose: 166.667 mls/hr Nystatin (Nystop Powder -) 1 applic TP BID [facility] Last Admin: 08/17/18 10:23 Dose: Not Given Quetiapine Fumarate (Seroquel -) 100 mg GT BID [facility] Last Admin: 08/17/18 10:19 Dose: 100 mg Ranitidine HCl (Zantac Oral Solution -) 150 mg GT DAILY [facility] Last Admin: 08/17/18 10:19 Dose: 150 mg - Objective Vital Signs: Vital Signs Temperature 99.3 F 08/17/18 10:18 Pulse Rate 93 H 08/17/18 10:18 Respiratory Rate 19 08/17/18 13:32 Blood Pressure 113/59 L 08/17/18 10:18 O2 Sat by Pulse Oximetry (%) 100 08/16/18 22:39 Constitutional: Yes: Well Nourished, Other (porly responsive) Eyes: Yes: WNL HENT: Yes: WNL Neck: Yes: Supple (+ TRACH) Cardiovascular: Yes: Regular Rate and Rhythm, S1, S2 Respiratory: Yes: Diminished Gastrointestinal: Yes: Normal Bowel Sounds, Soft Extremities: Yes: WNL Edema: No Labs: CBC, BMP 08/17/18 06:15 08/17/18 06:15 INR, PTT INR 1.14 (0.83-1.09) H 08/16/18 01:00 Assessment/Plan Problem List - Problems (1) Chronic respiratory failure Code(s): J96.10 - CHRONIC RESPIRATORY FAILURE, UNSP W HYPOXIA OR HYPERCAPNIA (2) Lung malignancy Code(s): C34.90 - MALIGNANT NEOPLASM OF UNSP PART OF UNSP BRONCHUS OR LUNG (3) Anemia Code(s): D64.9 - ANEMIA, UNSPECIFIED (4) CKD (chronic kidney disease), stage III Code(s): N18.3 - CHRONIC KIDNEY DISEASE, STAGE 3 (MODERATE) (5) COPD (chronic obstructive pulmonary disease) Code(s): J44.9 - CHRONIC OBSTRUCTIVE PULMONARY DISEASE, UNSPECIFIED (6) Diabetes mellitus Code(s): E11.9 - TYPE 2 DIABETES MELLITUS WITHOUT COMPLICATIONS (7) GERD (gastroesophageal reflux disease) Code(s): K21.9 - GASTRO-ESOPHAGEAL REFLUX DISEASE WITHOUT ESOPHAGITIS (8) HTN (hypertension) Code(s): I10 - ESSENTIAL (PRIMARY) HYPERTENSION (9) Pleural effusion Code(s): J90 - PLEURAL EFFUSION, NOT ELSEWHERE CLASSIFIED (10) Tracheostomy care Code(s): Z43.0 - ENCOUNTER FOR ATTENTION TO TRACHEOSTOMY Assessment/Plan Radiographic imaging consistent with advanced malignancy. No diagnosis is mentioned in the chart and the patient is not able to provide any history. Need to acquire more information. AC Mode of vent. Suction as needed. Trach is intact and a suction catheter can be passed in its entirety Normal transfusion thresholds Empiric ABX per ID Noted DNR Prognosis poor Given advanced disease would opt for conservative/comfort measures DR NORRIS
--- NOTE | 2018-08-17 14:29 | PN ---
Progress Note, Physician History of Present Illness: Not responsive to verbal/ tactile stimulus afebrile WBC increased 17.9 Hb 5.9 BC (-) Urine c/s LF - Current Medication List Current Medications: Active Medications Acetaminophen (Tylenol Oral Solution -) 650 mg GT Q6H PRN PRN Reason: PAIN OR FEVER Last Admin: 08/17/18 10:20 Dose: 650 mg Albuterol/Ipratropium (Duoneb -) 1 amp NEB RQID [facility] Last Admin: 08/17/18 11:02 Dose: 1 amp Collagenase (Santyl -) 1 applic TP DAILY [facility] Piperacillin Sod/Tazobactam (Sod 3.375 gm/ Dextrose) 50 mls @ 100 mls/hr IVPB Q8H-IV [facility]; Protocol Last Admin: 08/17/18 10:19 Dose: 100 mls/hr Vancomycin HCl (Vancomycin (Pre-Docked)) 1,000 mg in 250 mls @ 166.667 mls/hr IVPB Q12H [facility]; Protocol Last Admin: 08/17/18 03:01 Dose: 166.667 mls/hr Nystatin (Nystop Powder -) 1 applic TP BID [facility] Last Admin: 08/17/18 10:23 Dose: Not Given Quetiapine Fumarate (Seroquel -) 100 mg GT BID [facility] Last Admin: 08/17/18 10:19 Dose: 100 mg Ranitidine HCl (Zantac Oral Solution -) 150 mg GT DAILY [facility] Last Admin: 08/17/18 10:19 Dose: 150 mg - Objective Vital Signs: Vital Signs Temperature 98.3 F 08/17/18 13:48 Pulse Rate 87 08/17/18 13:48 Respiratory Rate 16 08/17/18 13:48 Blood Pressure 110/54 L 08/17/18 13:48 O2 Sat by Pulse Oximetry (%) 100 08/16/18 22:39 Constitutional: Yes: No Distress Eyes: Yes: Conjunctiva Clear Cardiovascular: Yes: Regular Rate and Rhythm, S1, S2 Respiratory: Yes: Diminished Gastrointestinal: Yes: Normal Bowel Sounds, Soft Edema: Yes Edema: LUE: 1+, RUE: 1+ Labs: CBC, BMP 08/17/18 06:15 08/17/18 06:15 INR, PTT INR 1.14 (0.83-1.09) H 08/16/18 01:00 Assessment/Plan Sepsis multiple potential sources (lung, , decubitus) Chronic respiratory failure Large R effusion ? pneumonia UTI Sacral decbuitus ulcer Anemia Hx MRSA Await c/s Continue vancomycin/ zosyn
[2018-08-17] MEDS: COLLAGENASE CLOSTRIDIUM HIST. 30 GRAMS TUBE TP SCH (15:21)
--- NOTE | 2018-08-17 16:12 | CONSULT ---
Consult Consult Specialty:: Heme/Onc Referred by:: Dr. Cancino Reason for Consultation:: History of right lung squamous cell carcinoma - History of Present Illness Chief Complaint: low Hb History of Present Illness: 77F presents from [facility] for blood in secretions in the tracheostomy and low hemoglobin. Per the son he states in April she had a right Carotid endarterectomy and hasnt been able to be extubated since going under general anesthesia. History taken per the son. He states she was eventually found to have right sided squamous cell carcinoma of the lung and eventually leading to SVC stent from what sounds like SVC syndrome. Patient has upper extremity swelling and facial swelling as well. Son is frustrated because she was never worked up at [facility] because they have been waiting to wean her off the vent before starting work up. She had a CTA of the chest for possible PE and was found to have large right pleural effusion with mediastinal shift and superior mediastinal mass surrounding SVC stent narrowing it. Patient is a former smoker - History Source History Provided By: Family Member (son) Limitations to Obtaining History: Clinical Condition - Past Medical History Additional Medical History: Respiratory Failure, Hypercapnia- Trach- Vent dependency. HTN. DM. GERD. MDD. CKD Stage 3. Dysphagia. COPD. MRSA in Sputum - Past Surgical History Past Surgical History: Yes: Carotid Endarterectomy (left) Additional Surgical History: Trach/PEG - Alcohol/Substance Use Hx Alcohol Use: No - Smoking History Smoking history: Former smoker Have you smoked in the past 12 months: No Home Medications - Allergies Allergies/Adverse Reactions: Allergies Allergy/AdvReac Type Severity Reaction Status Date / Time clopidogrel Allergy Verified 08/16/18 00:20 - Home Medications Home Medications: Ambulatory Orders Acetaminophen [Tylenol -] 650 mg GT DAILY PRN 08/16/18 Acetaminophen [Tylenol -] 650 mg GT Q6H PRN 08/16/18 Albuterol 2.5/Ipratropium 0.5 [Duoneb -] 1 neb IH QID 08/16/18 Collagenase Clostridium Hist. [Santyl] 1 applic TP DAILY 08/16/18 Famotidine [Pepcid -] 20 mg GT DAILY 08/16/18 Furosemide [Lasix] 40 mg GT DAILY 08/16/18 Insulin Detemir [Levemir Flextouch] 15 unit SQ HS 08/16/18 Insulin NPH Human Isophane [Humulin N Kwikpen] 100 unit SQ Q8H 08/16/18 Nicotine [Nicotine Patch 7 mg/24 hr] 1 each TD DAILY 08/16/18 Nystatin Powder [Nystop Topical Powder -] 15 gm TP Q12H 08/16/18 Quetiapine Fumarate [Seroquel] 100 mg GT Q12H 08/16/18 Saliva Stimulant Comb. No.3 [Biotene Moisturizing Mouth] 44.3 ml MM Q12H Family Disease History - Family Disease History Family Disease History: Diabetes: Son, CA: Son Review of Systems Unable to obtain ROS, reason: intubated sedated Physical Exam Vital Signs: Vital Signs Temperature 98.3 F 08/17/18 13:48 Pulse Rate 87 08/17/18 13:48 Respiratory Rate 16 08/17/18 13:48 Blood Pressure 110/54 L 08/17/18 13:48 O2 Sat by Pulse Oximetry (%) 100 08/16/18 22:39 Constitutional: Yes: No Distress Eyes: Yes: PERRL, Other (conjunctival pallor) HENT: Yes: Other (dry mucous membranes no thrush). No: Thrush Neck: Yes: Supple. No: Lymphadenopathy Cardiovascular: Yes: Regular Rate and Rhythm, S1, S2. No: Murmur Respiratory: Yes: Other (trachestomy in place coarse breath sounds) Gastrointestinal: Yes: Soft, Other (PEG in place) Breast(s): Yes: Other (left breast no masses appreciated. Right breast is larger and indurated at some spots in comparison to left which is soft) Extremities: Yes: Other (no lower extremity edema. bilateral upper extremity pittintg edema right more than left) Edema: LUE: 2+, RUE: 2+ Labs: CBC, BMP 08/17/18 06:15 08/17/18 06:15 Imaging - Results Chest X-ray: Report Reviewed, Image Reviewed Cat Scan: Report Reviewed, Image Reviewed Assessment/Plan 77F with multiple medical problems presents to the ER with low hemoglobin. Heme/ Onc consulted for history of right lung SCC. 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 Felix to speak to son Palliative care consult Will need to get records from [facility]
--- NOTE | 2018-08-17 16:31 | CONSULT ---
- Consultation REQUESTING PROVIDER: CONSULT REQUEST: We have been asked to surgically evaluate this patient for ( sacral ulcer). PCP:Jewels Cancino HISTORY OF PRESENT ILLNESS: 77y/o F w/ PMHx htn, dm, ckd stage 3, advanced lung CA, h/o complicated hospital course in 04/2018 which resulted in tracheostomy and vent dependence, now admitted after being sent from [place] ([facility]) for anemia and hemoptysis, found to be septic 2/2 to suspected UTI. Pt is nonverbal at baseline and HPI is severely limited. Per the son pt had a carotid endartectomy at an OSH in April after which she had a severe reaction to anesthesia and was unable to be extubated. 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 Reports pt developed sacral ulcer during that admission and has been having weekly debridements while at [facility] since June. PMHx: as above PSHx: as above Home Medications Medication Instructions Recorded Acetaminophen [Tylenol -] 650 mg GT DAILY PRN 08/16/18 Acetaminophen [Tylenol -] 650 mg GT Q6H PRN 08/16/18 Albuterol 2.5/Ipratropium 0.5 1 neb IH QID 08/16/18 [Duoneb -] Collagenase Clostridium Hist. 1 applic TP DAILY 08/16/18 [Santyl] Famotidine [Pepcid -] 20 mg GT DAILY 08/16/18 Furosemide [Lasix] 40 mg GT DAILY 08/16/18 Insulin Detemir [Levemir Flextouch] 15 unit SQ HS 08/16/18 Insulin NPH Human Isophane 100 unit SQ Q8H 08/16/18 [Humulin N Kwikpen] Nicotine [Nicotine Patch 7 mg/24 1 each TD DAILY 08/16/18 hr] Nystatin Powder [Nystop Topical 15 gm TP Q12H 08/16/18 Powder -] Quetiapine Fumarate [Seroquel] 100 mg GT Q12H 08/16/18 Saliva Stimulant Comb. No.3 44.3 ml MM Q12H 08/16/18 [Biotene Moisturizing Mouth] Allergies Allergy/AdvReac Type Severity Reaction Status Date / Time clopidogrel Allergy Verified 08/16/18 00:20 PHYSICAL EXAM: GENERAL: trach'ed minimally responsive HEAD: Normal with no signs of trauma. Back/Sacrum, large 9x7cm stage 3 sacral ulcer with approx 1.5cm of circumferential DTI. Moderate fibrinous exudate proximally, clean based distally. +tracking to right lateral aspect of ulcer, approx 2.5cms. Moderate serous drainage, no purulent drainage. Bone easily palpable Vital Signs Temperature 98.3 F 08/17/18 13:48 Pulse Rate 87 08/17/18 13:48 Respiratory Rate 16 08/17/18 13:48 Blood Pressure 110/54 L 08/17/18 13:48 O2 Sat by Pulse Oximetry (%) 100 08/16/18 22:39 Lab Results WBC 17.9 K/mm3 (4.0-10.0) H 08/17/18 06:15 RBC 2.55 M/mm3 (3.60-5.2) L 08/17/18 06:15 Hgb 5.9 GM/dL (10.7-15.3) L* 08/17/18 06:15 Hct 19.0 % (32.4-45.2) L 08/17/18 06:15 MCV 74.4 fl (80-96) L 08/17/18 06:15 MCHC 30.9 g/dl (32.0-36.0) L 08/17/18 06:15 RDW 17.1 % (11.6-15.6) H 08/17/18 06:15 Plt Count 720 K/MM3 (134-434) H 08/17/18 06:15 Sodium 130 mmol/L (136-145) L 08/17/18 06:15 Potassium 4.3 mmol/L (3.5-5.1) 08/17/18 06:15 Chloride 92 mmol/L (98-107) L 08/17/18 06:15 Carbon Dioxide 27 mmol/L (21-32) 08/17/18 06:15 Anion Gap 12 MMOL/L (8-16) 08/17/18 06:15 BUN 25 mg/dL (7-18) H 08/17/18 06:15 Creatinine 0.5 mg/dL (0.55-1.3) L 08/17/18 06:15 Random Glucose 142 mg/dL (74-106) H 11/14/18 06:15 Calcium 9.2 mg/dL (8.5-10.1) 08/17/18 06:15 Blood Type AB POSITIVE 08/16/18 10:06 Antibody Screen Negative 08/15/18 23:54 INR 1.14 (0.83-1.09) H 08/16/18 01:00 A/P: 77 y/o F w/ PMHx htn, dm, ckd stage 3, advanced lung CA, h/o complicated hospital course in 04/2018 which resulted in tracheostomy and vent dependence, now admitted after being sent from [place] ([facility]) for anemia and hemoptysis, found to be septic 2/2 to suspected UTI. Vascular consulted for sacral ulcer. Large stage 3 sacral ulcer with moderate fibrinous exudate. Does not appear clinically infected. -No surgical intervention at this time -Clean open wounds with normal saline and apply Santyl ointment to areas of fibrinous exudate (do not apply to intact skin or healthy tissue), cover with damp to dry 4x4 -Reposition every two hours while in bed -Air mattress recommended -Use drawsheets and Trendelenburg when repositioning to reduce friction and shear -Manageincontinence via timely cleansing, use of appropriate incontinence disposables and use of barrier ointment to intact skin -Ensure adequate hydration/nutrition, supplementation per primary team -Ensure off-loading to all bony areas (heels, ankles, hips and tailbone) with Allevyn/Optifoam will d/w attending Dr Lantigua
[2018-08-17 18:09] LABS: MCH 24.1 pg (25.7-33.7); MCHC 31.9 g/dl (32.0-36.0); MEAN CELL VOLUME 75.5 fl (80-96); MEAN PLT VOLUME 7.3 fl (7.5-11.1); PLATELET COUNT 686 K/MM3 (134-434); RBC 2.91 M/mm3 (3.60-5.2); RDW 16.6 % (11.6-15.6); WHITE BLOOD COUNT 16.1 K/mm3 (4.0-10.0)
[2018-08-17 18:24] LABS: ANION GAP 9 MMOL/L (8-16); BLOOD UREA NITROGEN 22 mg/dL (7-18); CALCIUM 9.1 mg/dL (8.5-10.1); CHLORIDE 94 mmol/L (98-107); CO2 27 mmol/L (21-32); CREATININE 0.5 mg/dL (0.55-1.3); GLUCOSE,RANDOM 221 mg/dL (74-106); POTASSIUM 4.1 mmol/L (3.5-5.1); SODIUM 131 mmol/L (136-145)
--- NOTE | 2018-08-17 19:57 | PN ---
Teaching Attending Note Name of Resident: Homero Sterling ATTENDING PHYSICIAN STATEMENT I saw and evaluated the patient. I reviewed the resident's note and discussed the case with the resident. I agree with the resident's findings and plan as documented. SUBJECTIVE: Patient seen and examined 77 year old presents from [place] with sepsis Past history of hypertension, diabetes, MRSA in sputum, tracheostomy, , PEG. S/p carotied endarterectomy No verbal, with no significant response to tactile stimule History of squamous cell ca Last Vital Signs Temp Pulse Resp BP Pulse Ox 98.9 F 86 16 123/67 100 08/17/18 18:29 08/17/18 18:29 08/17/18 18:29 08/17/18 18:29 08/17/18 10:18 HEENT: VIOLETTE, EOM Intact Oropharynx: No thrush, No mucositis Neck: trach Nodes: Without adenopathy Breasts: right breast larger, more edematous , aND FIRMER THAN LEFT Cor: RSR, No murmurs, No gallops Lungs: poor inspiratory effort Abd: Soft, Normal bowel sounds, No organomegalyPEG Ext:RUE edema Skin:decubitus CBC, BMP 08/17/18 13:15 08/17/18 13:15 Current Medications Generic Name Dose Route Start Last Admin Trade Name Freq PRN Reason Stop Dose Admin Acetaminophen 650 mg 08/16/18 06:22 08/17/18 10:20 Tylenol Oral Solution - GT 650 mg Q6H PRN Administration PAIN OR FEVER Albuterol/Ipratropium 1 amp 08/16/18 08:00 08/17/18 16:11 Duoneb - NEB 1 amp RQID [facility] Administration Collagenase 1 applic 08/17/18 14:30 08/17/18 15:21 Santyl - TP 1 applic DAILY [facility] Administration Piperacillin Sod/Tazobactam 50 mls @ 100 mls/hr 08/16/18 18:00 08/17/18 17:26 Sod 3.375 gm/ Dextrose IVPB 100 mls/hr Q8H-IV [facility] Administration Protocol Vancomycin HCl 1,000 mg in 250 mls @ 166.667 mls/hr 08/16/18 15:00 08/17/18 15:22 Vancomycin (Pre-Docked) IVPB 166.667 mls/hr Q12H [facility] Administration Protocol Nystatin 1 applic 08/16/18 10:00 08/17/18 10:23 Nystop Powder - TP Not Given BID [facility] Quetiapine Fumarate 100 mg 08/16/18 10:00 08/17/18 10:19 Seroquel - GT 100 mg BID [facility] Administration Ranitidine HCl 150 mg 08/16/18 10:00 08/17/18 10:19 Zantac Oral Solution - GT 150 mg DAILY [facility] Administration OBJECTIVE:Impression: Sepsis- antibiotics per ID Ventilatory dependent Feeding tube Squamous cell carcinoma of right lung CT withnear "white out " of right lung which is likely combination of fluid, tumor, and atelectasis ?SVC Data on SCC of lung with ECOG performance status of 4 suggests a less than 10 % meaningful response to systemic therapy. A conservative approach would seem appropriate with palliative care intervention to discuss goals of care. ASSESSMENT AND PLAN:
[2018-08-18] MEDS ORDERED: PIPERACILLIN/TAZOBACTAM 3.375 GM VIAL IVPB ONE ×3 (00:52→17:26)
[2018-08-18] MEDS ORDERED: DEXTROSE 5%-WATER - 50 ML IVPB ONE ×3 (00:53→17:26)
[2018-08-18] MEDS: PIPERACILLIN/TAZOB 3.375 GM 3.375 GM in DEXTROSE 5%-WATER - 50 ML IVPB SCH ×3 (02:11→17:48)
[2018-08-18] MEDS: VANCOMYCIN 1 GRAM (PRE-DOCKED) 1,000 MG/250 ML BAG IVPB SCH ×2 (02:56→15:12)
[2018-08-18 07:20] LABS: HEMATOCRIT 25.8 % (32.4-45.2); HEMOGLOBIN 8.2 GM/dL (10.7-15.3); MCH 24.3 pg (25.7-33.7); MCHC 31.7 g/dl (32.0-36.0); MEAN CELL VOLUME 76.8 fl (80-96); MEAN PLT VOLUME 7.1 fl (7.5-11.1); PLATELET COUNT 663 K/MM3 (134-434); RBC 3.36 M/mm3 (3.60-5.2); RDW 17.5 % (11.6-15.6)
[2018-08-18] MEDS: ALBUTEROL SO4 2.5/IPRATROPIUM 0.5 INH SOL 3 ML VIAL.NEB. NEB SCH ×4 (08:07→20:40)
[2018-08-18 08:10] LABS: ALBUMIN 1.6 g/dl (3.4-5.0); ALK PHOS 129 U/L (45-117); ANION GAP 9 MMOL/L (8-16); BILIRUBIN,TOTAL 1.1 mg/dL (0.2-1); BLOOD UREA NITROGEN 21 mg/dL (7-18); CALCIUM 9.7 mg/dL (8.5-10.1); CHLORIDE 94 mmol/L (98-107); CO2 27 mmol/L (21-32); CREATININE 0.7 mg/dL (0.55-1.3); GLUCOSE,RANDOM 274 mg/dL (74-106); POTASSIUM 4.1 mmol/L (3.5-5.1); SGOT/AST 35 U/L (15-37); SGPT/ALT 44 U/L (13-61); SODIUM 130 mmol/L (136-145); TOT PROT 6.5 g/dl (6.4-8.2)
[2018-08-18] MEDS ORDERED: QUEtiapine FUMARATE 50 MG TABLET ONE ×2 (10:24→21:31)
[2018-08-18] MEDS ORDERED: PT OWN MED DRAWER 7, Y5N ONE (10:25)
[2018-08-18] MEDS: RANITIDINE HCL 150 MG/10 ML UNIT-DOSE GT SCH (10:34)
[2018-08-18] MEDS: QUEtiapine FUMARATE 100 MG TABLET (FP) GT SCH ×2 (10:34→23:01)
--- NOTE | 2018-08-18 10:39 | PN ---
Progress Note, Physician - Current Medication List Current Medications: Active Medications Acetaminophen (Tylenol Oral Solution -) 650 mg GT Q6H PRN PRN Reason: PAIN OR FEVER Last Admin: 08/17/18 10:20 Dose: 650 mg Albuterol/Ipratropium (Duoneb -) 1 amp NEB RQID [facility] Last Admin: 08/18/18 08:07 Dose: 1 amp Collagenase (Santyl -) 1 applic TP DAILY [facility] Last Admin: 08/17/18 15:21 Dose: 1 applic Piperacillin Sod/Tazobactam (Sod 3.375 gm/ Dextrose) 50 mls @ 100 mls/hr IVPB Q8H-IV [facility]; Protocol Last Admin: 08/18/18 10:33 Dose: 100 mls/hr Vancomycin HCl (Vancomycin (Pre-Docked)) 1,000 mg in 250 mls @ 166.667 mls/hr IVPB Q12H [facility]; Protocol Last Admin: 08/18/18 02:56 Dose: 166.667 mls/hr Nystatin (Nystop Powder -) 1 applic TP BID [facility] Last Admin: 08/17/18 22:25 Dose: 1 applic Quetiapine Fumarate (Seroquel -) 100 mg GT BID [facility] Last Admin: 08/18/18 10:34 Dose: 100 mg Ranitidine HCl (Zantac Oral Solution -) 150 mg GT DAILY [facility] Last Admin: 08/18/18 10:34 Dose: 150 mg - Objective Vital Signs: Vital Signs Temperature 98.7 F 08/18/18 04:00 Pulse Rate 88 08/18/18 04:00 Respiratory Rate 22 H 08/18/18 09:40 Blood Pressure 116/62 08/18/18 04:00 O2 Sat by Pulse Oximetry (%) 97 08/17/18 21:00 Labs: CBC, BMP 08/18/18 06:45 08/18/18 06:45 INR, PTT INR 1.14 (0.83-1.09) H 08/16/18 01:00
--- NOTE | 2018-08-18 12:09 | PN ---
Progress Note (short form) - Note Progress Note: Poorly responsive on AC mode of vent. No improvement in overall condition. Intake & Output 08/15/18 08/16/18 08/17/18 08/18/18 23:59 23:59 23:59 23:59 Intake Total 500 1160 1110 Output Total 150 950 200 Balance 350 210 910 Weight 250 lb 146 lb 146 lb Last Vital Signs Temp Pulse Resp BP Pulse Ox 97.8 F 87 16 117/71 97 08/18/18 10:00 08/18/18 10:00 08/18/18 10:00 08/18/18 10:00 08/17/18 21:00 Active Medications Acetaminophen (Tylenol Oral Solution -) 650 mg GT Q6H PRN PRN Reason: PAIN OR FEVER Last Admin: 08/17/18 10:20 Dose: 650 mg Albuterol/Ipratropium (Duoneb -) 1 amp NEB RQID [facility] Last Admin: 08/18/18 11:41 Dose: 1 amp Collagenase (Santyl -) 1 applic TP DAILY [facility] Last Admin: 08/17/18 15:21 Dose: 1 applic Piperacillin Sod/Tazobactam (Sod 3.375 gm/ Dextrose) 50 mls @ 100 mls/hr IVPB Q8H-IV [facility]; Protocol Last Admin: 08/18/18 10:33 Dose: 100 mls/hr Vancomycin HCl (Vancomycin (Pre-Docked)) 1,000 mg in 250 mls @ 166.667 mls/hr IVPB Q12H [facility]; Protocol Last Admin: 08/18/18 02:56 Dose: 166.667 mls/hr Nystatin (Nystop Powder -) 1 applic TP BID [facility] Last Admin: 08/17/18 22:25 Dose: 1 applic Quetiapine Fumarate (Seroquel -) 100 mg GT BID [facility] Last Admin: 08/18/18 10:34 Dose: 100 mg Ranitidine HCl (Zantac Oral Solution -) 150 mg GT DAILY [facility] Last Admin: 08/18/18 10:34 Dose: 150 mg Constitutional: Yes: poorly responsive Eyes: Yes: WNL HENT: Yes: WNL Neck: Yes: Supple (+ TRACH) Cardiovascular: Yes: Regular Rate and Rhythm, S1, S2 Respiratory: Yes: Diminished, rhonchi Gastrointestinal: Yes: Normal Bowel Sounds, Soft Extremities: Yes: WNL Edema: No Labs: Laboratory Results - last 24 hr 08/16/18 08/17/18 08/17/18 10:06 06:15 13:15 WBC 16.1 H RBC 2.91 L Hgb 7.0 L Hct 22.0 L D MCV 75.5 L MCH 24.1 L MCHC 31.9 L RDW 16.6 H Plt Count 686 H MPV 7.3 L Neutrophils % (Manual) 93.0 H Band Neutrophils % 0.0 Lymphocytes % (Manual) 4.0 L Monocytes % (Manual) 2 L Eosinophils % (Manual) 1.0 Basophils % (Manual) 0.0 Myelocytes % (Man) 0 Promyelocytes % (Man) 0 Blast Cells % (Manual) 0 Metamyelocytes 0 Hypochromia 1+ Platelet Estimate Increased Polychromasia 1+ Poikilocytosis 0 Anisocytosis 1+ Microcytosis 1+ Macrocytosis 0 Sodium Potassium Chloride Carbon Dioxide Anion Gap BUN Creatinine Creat Clearance w eGFR Random Glucose Calcium Total Bilirubin AST ALT Alkaline Phosphatase Total Protein Albumin Blood Type AB POSITIVE Crossmatch See Detail 08/17/18 08/18/18 08/18/18 13:15 06:45 06:45 WBC 16.0 H RBC 3.36 L Hgb 8.2 L Hct 25.8 L D MCV 76.8 L MCH 24.3 L MCHC 31.7 L RDW 17.5 H Plt Count 663 H MPV 7.1 L Neutrophils % (Manual) Band Neutrophils % Lymphocytes % (Manual) Monocytes % (Manual) Eosinophils % (Manual) Basophils % (Manual) Myelocytes % (Man) Promyelocytes % (Man) Blast Cells % (Manual) Metamyelocytes Hypochromia Platelet Estimate Polychromasia Poikilocytosis Anisocytosis Microcytosis Macrocytosis Sodium 131 L 130 L Potassium 4.1 4.1 Chloride 94 L 94 L Carbon Dioxide 27 27 Anion Gap 9 9 BUN 22 H 21 H Creatinine 0.5 L 0.7 Creat Clearance w eGFR > 60 > 60 Random Glucose 221 H 274 H Calcium 9.1 9.7 Total Bilirubin 1.1 H AST 35 ALT 44 Alkaline Phosphatase 129 H Total Protein 6.5 Albumin 1.6 L Blood Type Crossmatch Assessment/Plan Problem List - Problems (1) Chronic respiratory failure Code(s): J96.10 - CHRONIC RESPIRATORY FAILURE, UNSP W HYPOXIA OR HYPERCAPNIA (2) Lung malignancy Code(s): C34.90 - MALIGNANT NEOPLASM OF UNSP PART OF UNSP BRONCHUS OR LUNG (3) Anemia Code(s): D64.9 - ANEMIA, UNSPECIFIED (4) CKD (chronic kidney disease), stage III Code(s): N18.3 - CHRONIC KIDNEY DISEASE, STAGE 3 (MODERATE) (5) COPD (chronic obstructive pulmonary disease) Code(s): J44.9 - CHRONIC OBSTRUCTIVE PULMONARY DISEASE, UNSPECIFIED (6) Diabetes mellitus Code(s): E11.9 - TYPE 2 DIABETES MELLITUS WITHOUT COMPLICATIONS (7) GERD (gastroesophageal reflux disease) Code(s): K21.9 - GASTRO-ESOPHAGEAL REFLUX DISEASE WITHOUT ESOPHAGITIS (8) HTN (hypertension) Code(s): I10 - ESSENTIAL (PRIMARY) HYPERTENSION (9) Pleural effusion Code(s): J90 - PLEURAL EFFUSION, NOT ELSEWHERE CLASSIFIED (10) Tracheostomy care Code(s): Z43.0 - ENCOUNTER FOR ATTENTION TO TRACHEOSTOMY Assessment/Plan AC Mode of vent. Suction as needed. DNR Prognosis is grave Given advanced disease would opt for conservative/comfort measures Dr Looney Problem List - Problems (1) Chronic respiratory failure Code(s): J96.10 - CHRONIC RESPIRATORY FAILURE, UNSP W HYPOXIA OR HYPERCAPNIA (2) Lung malignancy Code(s): C34.90 - MALIGNANT NEOPLASM OF UNSP PART OF UNSP BRONCHUS OR LUNG (3) Anemia Code(s): D64.9 - ANEMIA, UNSPECIFIED (4) CKD (chronic kidney disease), stage III Code(s): N18.3 - CHRONIC KIDNEY DISEASE, STAGE 3 (MODERATE) (5) COPD (chronic obstructive pulmonary disease) Code(s): J44.9 - CHRONIC OBSTRUCTIVE PULMONARY DISEASE, UNSPECIFIED (6) Diabetes mellitus Code(s): E11.9 - TYPE 2 DIABETES MELLITUS WITHOUT COMPLICATIONS (7) GERD (gastroesophageal reflux disease) Code(s): K21.9 - GASTRO-ESOPHAGEAL REFLUX DISEASE WITHOUT ESOPHAGITIS (8) HTN (hypertension) Code(s): I10 - ESSENTIAL (PRIMARY) HYPERTENSION (9) Pleural effusion Code(s): J90 - PLEURAL EFFUSION, NOT ELSEWHERE CLASSIFIED (10) Tracheostomy care Code(s): Z43.0 - ENCOUNTER FOR ATTENTION TO TRACHEOSTOMY
--- NOTE | 2018-08-18 12:20 | PN ---
Progress Note, Physician Chief Complaint: patient - Current Medication List Current Medications: Active Medications Acetaminophen (Tylenol Oral Solution -) 650 mg GT Q6H PRN PRN Reason: PAIN OR FEVER Last Admin: 08/17/18 10:20 Dose: 650 mg Albuterol/Ipratropium (Duoneb -) 1 amp NEB RQID [facility] Last Admin: 08/18/18 11:41 Dose: 1 amp Collagenase (Santyl -) 1 applic TP DAILY [facility] Last Admin: 08/17/18 15:21 Dose: 1 applic Piperacillin Sod/Tazobactam (Sod 3.375 gm/ Dextrose) 50 mls @ 100 mls/hr IVPB Q8H-IV [facility]; Protocol Last Admin: 08/18/18 10:33 Dose: 100 mls/hr Vancomycin HCl (Vancomycin (Pre-Docked)) 1,000 mg in 250 mls @ 166.667 mls/hr IVPB Q12H [facility]; Protocol Last Admin: 08/18/18 02:56 Dose: 166.667 mls/hr Nystatin (Nystop Powder -) 1 applic TP BID [facility] Last Admin: 08/17/18 22:25 Dose: 1 applic Quetiapine Fumarate (Seroquel -) 100 mg GT BID [facility] Last Admin: 08/18/18 10:34 Dose: 100 mg Ranitidine HCl (Zantac Oral Solution -) 150 mg GT DAILY [facility] Last Admin: 08/18/18 10:34 Dose: 150 mg - Objective Vital Signs: Vital Signs Temperature 97.8 F 08/18/18 10:00 Pulse Rate 87 08/18/18 10:00 Respiratory Rate 16 08/18/18 10:00 Blood Pressure 117/71 08/18/18 10:00 O2 Sat by Pulse Oximetry (%) 97 08/17/18 21:00 Constitutional: Yes: Calm Cardiovascular: Yes: Regular Rate and Rhythm, S1, S2 Respiratory: Yes: Mechanically Ventilated Gastrointestinal: Yes: Normal Bowel Sounds, Soft, Other (g tube) Labs: CBC, BMP 08/18/18 06:45 08/18/18 06:45 INR, PTT INR 1.14 (0.83-1.09) H 08/16/18 01:00 Problem List - Problems (1) Chronic respiratory failure Assessment/Plan: AC mode on vent Code(s): J96.10 - CHRONIC RESPIRATORY FAILURE, UNSP W HYPOXIA OR HYPERCAPNIA (2) Lung malignancy Assessment/Plan: ct lung noted right lung collapsed left lung opacity mass enclosing the SVC appreciate heme note poor prognosis Code(s): C34.90 - MALIGNANT NEOPLASM OF UNSP PART OF UNSP BRONCHUS OR LUNG (3) Leukocytosis Assessment/Plan: on emperic abx possible source lung/decubitus Code(s): D72.829 - ELEVATED WHITE BLOOD CELL COUNT, UNSPECIFIED
--- NOTE | 2018-08-18 12:48 | PN ---
Progress Note, Physician History of Present Illness: Opens eyes to verbal/ tactile stimulus afebrile WBC elevated BC (-) Urine c/s E coli Wound c/s , sputum c/s mixed - Current Medication List Current Medications: Active Medications Acetaminophen (Tylenol Oral Solution -) 650 mg GT Q6H PRN PRN Reason: PAIN OR FEVER Last Admin: 08/17/18 10:20 Dose: 650 mg Albuterol/Ipratropium (Duoneb -) 1 amp NEB RQID [facility] Last Admin: 08/18/18 11:41 Dose: 1 amp Collagenase (Santyl -) 1 applic TP DAILY [facility] Last Admin: 08/17/18 15:21 Dose: 1 applic Piperacillin Sod/Tazobactam (Sod 3.375 gm/ Dextrose) 50 mls @ 100 mls/hr IVPB Q8H-IV [facility]; Protocol Last Admin: 08/18/18 10:33 Dose: 100 mls/hr Vancomycin HCl (Vancomycin (Pre-Docked)) 1,000 mg in 250 mls @ 166.667 mls/hr IVPB Q12H [facility]; Protocol Last Admin: 08/18/18 02:56 Dose: 166.667 mls/hr Nystatin (Nystop Powder -) 1 applic TP BID [facility] Last Admin: 08/17/18 22:25 Dose: 1 applic Quetiapine Fumarate (Seroquel -) 100 mg GT BID [facility] Last Admin: 08/18/18 10:34 Dose: 100 mg Ranitidine HCl (Zantac Oral Solution -) 150 mg GT DAILY [facility] Last Admin: 08/18/18 10:34 Dose: 150 mg - Objective Vital Signs: Vital Signs Temperature 97.8 F 08/18/18 10:00 Pulse Rate 87 08/18/18 10:00 Respiratory Rate 16 08/18/18 10:00 Blood Pressure 117/71 08/18/18 10:00 O2 Sat by Pulse Oximetry (%) 97 08/17/18 21:00 Constitutional: Yes: No Distress Cardiovascular: Yes: Regular Rate and Rhythm, S1, S2 Respiratory: Yes: Mechanically Ventilated Gastrointestinal: Yes: Normal Bowel Sounds, Soft. No: Tenderness Edema: Yes Labs: CBC, BMP 08/18/18 06:45 08/18/18 06:45 INR, PTT INR 1.14 (0.83-1.09) H 08/16/18 01:00 Assessment/Plan Sepsis multiple potential sources (lung, , decubitus) Chronic respiratory failure Large R effusion ? pneumonia UTI Sacral decbuitus ulcer Anemia Hx MRSA Await c/s Continue vancomycin/ zosyn
[2018-08-18] MEDS: NYSTATIN POWDER 100,000 UNITS/GM - 15 GM TOPICAL POWDER TP SCH ×2 (15:12→23:03)
[2018-08-18] MEDS: COLLAGENASE CLOSTRIDIUM HIST. 30 GRAMS TUBE TP SCH (15:12)
--- NOTE | 2018-08-18 15:27 | PN ---
Progress Note, Physician History of Present Illness: Pt seen and examined at bedside. She appears comfortable. She is tolerating diet. - Current Medication List Current Medications: Active Medications Acetaminophen (Tylenol Oral Solution -) 650 mg GT Q6H PRN PRN Reason: PAIN OR FEVER Last Admin: 08/17/18 10:20 Dose: 650 mg Albuterol/Ipratropium (Duoneb -) 1 amp NEB RQID [facility] Last Admin: 08/18/18 11:41 Dose: 1 amp Collagenase (Santyl -) 1 applic TP DAILY [facility] Last Admin: 08/18/18 15:12 Dose: 1 applic Piperacillin Sod/Tazobactam (Sod 3.375 gm/ Dextrose) 50 mls @ 100 mls/hr IVPB Q8H-IV [facility]; Protocol Last Admin: 08/18/18 10:33 Dose: 100 mls/hr Vancomycin HCl (Vancomycin (Pre-Docked)) 1,000 mg in 250 mls @ 166.667 mls/hr IVPB Q12H [facility]; Protocol Last Admin: 08/18/18 15:12 Dose: 166.667 mls/hr Nystatin (Nystop Powder -) 1 applic TP BID [facility] Last Admin: 08/18/18 15:12 Dose: 1 applic Quetiapine Fumarate (Seroquel -) 100 mg GT BID [facility] Last Admin: 08/18/18 10:34 Dose: 100 mg Ranitidine HCl (Zantac Oral Solution -) 150 mg GT DAILY [facility] Last Admin: 08/18/18 10:34 Dose: 150 mg - Objective Vital Signs: Vital Signs Temperature 98.6 F 08/18/18 14:38 Pulse Rate 92 H 08/18/18 14:38 Respiratory Rate 18 08/18/18 14:38 Blood Pressure 111/63 08/18/18 14:38 O2 Sat by Pulse Oximetry (%) 97 08/17/18 21:00 Constitutional: Yes: Calm Eyes: Yes: Conjunctiva Clear Neck: Yes: Other (trache) Cardiovascular: Yes: S1, S2 Respiratory: Yes: Mechanically Ventilated Gastrointestinal: Yes: Normal Bowel Sounds, Soft, Other (peg) Genitourinary: Yes: Lin Present Musculoskeletal: Yes: Muscle Weakness Edema: LUE: 1+, RUE: 1+ Neurological: Yes: Other (awake) Labs: CBC, BMP 08/18/18 06:45 08/18/18 06:45 INR, PTT INR 1.14 (0.83-1.09) H 08/16/18 01:00 Problem List - Problems (1) Hyponatremia Code(s): E87.1 - HYPO-OSMOLALITY AND HYPONATREMIA (2) CKD (chronic kidney disease), stage III Code(s): N18.3 - CHRONIC KIDNEY DISEASE, STAGE 3 (MODERATE) (3) COPD (chronic obstructive pulmonary disease) Code(s): J44.9 - CHRONIC OBSTRUCTIVE PULMONARY DISEASE, UNSPECIFIED (4) Chronic respiratory failure Code(s): J96.10 - CHRONIC RESPIRATORY FAILURE, UNSP W HYPOXIA OR HYPERCAPNIA (5) Diabetes mellitus Code(s): E11.9 - TYPE 2 DIABETES MELLITUS WITHOUT COMPLICATIONS Assessment/Plan Current Medications Generic Name Dose Route Start Last Admin Trade Name Freq PRN Reason Stop Dose Admin Acetaminophen 650 mg 08/16/18 06:22 08/17/18 10:20 Tylenol Oral Solution - GT 650 mg Q6H PRN Administration PAIN OR FEVER Albuterol/Ipratropium 1 amp 08/16/18 08:00 08/18/18 11:41 Duoneb - NEB 1 amp RQID [facility] Administration Collagenase 1 applic 08/17/18 14:30 08/18/18 15:12 Santyl - TP 1 applic DAILY [facility] Administration Piperacillin Sod/Tazobactam 50 mls @ 100 mls/hr 08/16/18 18:00 08/18/18 10:33 Sod 3.375 gm/ Dextrose IVPB 100 mls/hr Q8H-IV [facility] Administration Protocol Vancomycin HCl 1,000 mg in 250 mls @ 166.667 mls/hr 08/16/18 15:00 08/18/18 15:12 Vancomycin (Pre-Docked) IVPB 166.667 mls/hr Q12H [facility] Administration Protocol Nystatin 1 applic 08/16/18 10:00 08/18/18 15:12 Nystop Powder - TP 1 applic BID [facility] Administration Quetiapine Fumarate 100 mg 08/16/18 10:00 08/18/18 10:34 Seroquel - GT 100 mg BID [facility] Administration Ranitidine HCl 150 mg 08/16/18 10:00 08/18/18 10:34 Zantac Oral Solution - GT 150 mg DAILY [facility] Administration Impression 1. Hyponatremia 2. resp failure 3. lung cancer 4. DM 5. hx lung cancer 6. GERD 7. hx MRSA Plan - cont feeds - monitor sodium - hg is improved - monitor bp - vent support - follow cultures
[2018-08-19] MEDS ORDERED: PIPERACILLIN/TAZOBACTAM 3.375 GM VIAL IVPB ONE ×3 (01:03→18:05)
[2018-08-19] MEDS ORDERED: DEXTROSE 5%-WATER - 50 ML IVPB ONE ×3 (01:03→18:05)
[2018-08-19] MEDS: PIPERACILLIN/TAZOB 3.375 GM 3.375 GM in DEXTROSE 5%-WATER - 50 ML IVPB SCH ×3 (02:15→18:24)
[2018-08-19] MEDS: VANCOMYCIN 1 GRAM (PRE-DOCKED) 1,000 MG/250 ML BAG IVPB SCH ×2 (03:21→17:10)
[2018-08-19] MEDS: ALBUTEROL SO4 2.5/IPRATROPIUM 0.5 INH SOL 3 ML VIAL.NEB. NEB SCH ×4 (07:25→20:31)
--- NOTE | 2018-08-19 09:54 | PN ---
Progress Note, Physician - Current Medication List Current Medications: Active Medications Acetaminophen (Tylenol Oral Solution -) 650 mg GT Q6H PRN PRN Reason: PAIN OR FEVER Last Admin: 08/17/18 10:20 Dose: 650 mg Albuterol/Ipratropium (Duoneb -) 1 amp NEB RQID [facility] Last Admin: 08/18/18 20:40 Dose: 1 amp Collagenase (Santyl -) 1 applic TP DAILY [facility] Last Admin: 08/18/18 15:12 Dose: 1 applic Piperacillin Sod/Tazobactam (Sod 3.375 gm/ Dextrose) 50 mls @ 100 mls/hr IVPB Q8H-IV [facility]; Protocol Last Admin: 08/19/18 02:15 Dose: 100 mls/hr Vancomycin HCl (Vancomycin (Pre-Docked)) 1,000 mg in 250 mls @ 166.667 mls/hr IVPB Q12H [facility]; Protocol Last Admin: 08/19/18 03:21 Dose: 166.667 mls/hr Nystatin (Nystop Powder -) 1 applic TP BID [facility] Last Admin: 08/18/18 23:03 Dose: 1 applic Quetiapine Fumarate (Seroquel -) 100 mg GT BID [facility] Last Admin: 08/18/18 23:01 Dose: 100 mg Ranitidine HCl (Zantac Oral Solution -) 150 mg GT DAILY [facility] Last Admin: 08/18/18 10:34 Dose: 150 mg - Objective Vital Signs: Vital Signs Temperature 98.3 F 08/19/18 00:00 Pulse Rate 89 08/19/18 00:00 Respiratory Rate 20 08/19/18 06:14 Blood Pressure 152/80 08/19/18 00:00 O2 Sat by Pulse Oximetry (%) 98 08/18/18 21:00 Cardiovascular: Yes: S1, S2 Respiratory: Yes: Mechanically Ventilated Gastrointestinal: Yes: Normal Bowel Sounds, Soft Neurological: Yes: Alert Labs: CBC, BMP 08/18/18 06:45 08/18/18 06:45 INR, PTT INR 1.14 (0.83-1.09) H 08/16/18 01:00 Problem List - Problems (1) Acute on chronic respiratory failure with hypercapnia Assessment/Plan: -Vent support -Follow o2 sat -Pulm consult -AC mode on vent -On abx Code(s): J96.22 - ACUTE AND CHRONIC RESPIRATORY FAILURE WITH HYPERCAPNIA (2) Diabetes mellitus Assessment/Plan: -BGM Code(s): E11.9 - TYPE 2 DIABETES MELLITUS WITHOUT COMPLICATIONS (3) Lung malignancy Assessment/Plan: -Review old records -Oncology consult noted--not candidate for treatment -ct lung noted right lung collapsed left lung opacity -mass enclosing the SVC -poor prognosis Code(s): C34.90 - MALIGNANT NEOPLASM OF UNSP PART OF UNSP BRONCHUS OR LUNG (4) Decubitus ulcer Assessment/Plan: Abx per id -Wound care Code(s): L89.90 - PRESSURE ULCER OF UNSPECIFIED SITE, UNSPECIFIED STAGE (5) UTI (urinary tract infection) due to urinary indwelling catheter Assessment/Plan: Microbiology 08/16/18 15:00 Perineal Gram Stain - Final 08/16/18 15:00 Perineal Wound Culture - Preliminary Non Lactose Fermenting Gnb Proteus Species Group D Strep Or Entero Coccus 08/15/18 01:00 Blood - Peripheral Venous Blood Culture - Preliminary NO GROWTH OBTAINED AFTER 72 HOURS, INCUBATION TO CONTINUE FOR 2 DAYS. 08/15/18 01:00 Blood - Peripheral Venous Blood Culture - Preliminary NO GROWTH OBTAINED AFTER 72 HOURS, INCUBATION TO CONTINUE FOR 2 DAYS. 08/16/18 02:30 Urine - Urine Lin Urine Culture - Final Escherichia Coli 08/17/18 11:00 Sputum - Endotrachea Suction/Ventilator Gram Stain - Final 08/17/18 11:00 Sputum - Endotrachea Suction/Ventilator Sputum Culture - Preliminary Non Lactose Fermenting Gnb Non Lactose Fermenting Gnb#2 Pending Organism 08/16/18 15:00 Urine For Antigen Detection Legionella Antigen - Final 08/16/18 15:00 Urine For Antigen Detection Streptococcus pneumoniae Antigen (M - Final Abx per ID Orders 08/16/18 15:00 Vancomycin 1 Gram (Pre-Docked) [Vancomycin (Pre-Docked)] 1,000 mg in 250 ml IVPB Q12H 08/16/18 18:00 Piperacillin/Tazob 3.375 gm [Zosyn -] 3.375 gm Dextrose 5%-Water - [D5w 50 ml Mini Bag] 50 ml IVPB Q8H-IV Code(s): T83.511A - I/I REACT D/T INDWELLING URETHRAL CATHETER, INIT; N39.0 - URINARY TRACT INFECTION, SITE NOT SPECIFIED
[2018-08-19] MEDS ORDERED: QUEtiapine FUMARATE 50 MG TABLET ONE ×2 (11:31→22:09)
[2018-08-19] MEDS ORDERED: PT OWN MED DRAWER 7, Y5N ONE (11:31)
[2018-08-19] MEDS: COLLAGENASE CLOSTRIDIUM HIST. 30 GRAMS TUBE TP SCH (11:46)
[2018-08-19] MEDS: NYSTATIN POWDER 100,000 UNITS/GM - 15 GM TOPICAL POWDER TP SCH (11:46)
[2018-08-19] MEDS: QUEtiapine FUMARATE 100 MG TABLET (FP) GT SCH ×2 (11:46→22:11)
[2018-08-19] MEDS: RANITIDINE HCL 150 MG/10 ML UNIT-DOSE GT SCH (11:46)
--- NOTE | 2018-08-19 12:35 | PN ---
Progress Note, Physician History of Present Illness: Awake on ventilator afebrile WBC elevated 16K BC (-) Urine c/s E coli Wound c/s , sputum c/s mixed - Current Medication List Current Medications: Active Medications Acetaminophen (Tylenol Oral Solution -) 650 mg GT Q6H PRN PRN Reason: PAIN OR FEVER Last Admin: 08/17/18 10:20 Dose: 650 mg Albuterol/Ipratropium (Duoneb -) 1 amp NEB RQID [facility] Last Admin: 08/19/18 07:25 Dose: 1 amp Collagenase (Santyl -) 1 applic TP DAILY [facility] Last Admin: 08/19/18 11:46 Dose: 1 applic Piperacillin Sod/Tazobactam (Sod 3.375 gm/ Dextrose) 50 mls @ 100 mls/hr IVPB Q8H-IV [facility]; Protocol Last Admin: 08/19/18 11:46 Dose: 100 mls/hr Vancomycin HCl (Vancomycin (Pre-Docked)) 1,000 mg in 250 mls @ 166.667 mls/hr IVPB Q12H [facility]; Protocol Last Admin: 08/19/18 03:21 Dose: 166.667 mls/hr Nystatin (Nystop Powder -) 1 applic TP BID [facility] Last Admin: 08/19/18 11:46 Dose: 1 applic Quetiapine Fumarate (Seroquel -) 100 mg GT BID [facility] Last Admin: 08/19/18 11:46 Dose: 100 mg Ranitidine HCl (Zantac Oral Solution -) 150 mg GT DAILY [facility] Last Admin: 08/19/18 11:46 Dose: 150 mg - Objective Vital Signs: Vital Signs Temperature 98.3 F 08/19/18 00:00 Pulse Rate 90 08/19/18 09:40 Respiratory Rate 26 H 08/19/18 09:45 Blood Pressure 152/80 08/19/18 00:00 O2 Sat by Pulse Oximetry (%) 99 08/19/18 09:40 Constitutional: Yes: No Distress, Obese Cardiovascular: Yes: Regular Rate and Rhythm, S1, S2 Respiratory: Yes: Mechanically Ventilated Gastrointestinal: Yes: Normal Bowel Sounds, Soft, Abdomen, Obese. No: Tenderness Edema: Yes Labs: CBC, BMP 08/18/18 06:45 08/18/18 06:45 INR, PTT INR 1.14 (0.83-1.09) H 08/16/18 01:00 Assessment/Plan Sepsis multiple potential sources (lung, , decubitus) Chronic respiratory failure Large R effusion ? pneumonia UTI Sacral decbuitus ulcer Anemia Hx MRSA Await final c/s Continue vancomycin/ zosyn Check vancomycin level
--- NOTE | 2018-08-19 15:20 | PN ---
Progress Note, Physician History of Present Illness: pulmonary awake,no distress on vent support ac mode - Current Medication List Current Medications: Active Medications Acetaminophen (Tylenol Oral Solution -) 650 mg GT Q6H PRN PRN Reason: PAIN OR FEVER Last Admin: 08/17/18 10:20 Dose: 650 mg Albuterol/Ipratropium (Duoneb -) 1 amp NEB RQID [facility] Last Admin: 08/19/18 07:25 Dose: 1 amp Collagenase (Santyl -) 1 applic TP DAILY [facility] Last Admin: 08/19/18 11:46 Dose: 1 applic Piperacillin Sod/Tazobactam (Sod 3.375 gm/ Dextrose) 50 mls @ 100 mls/hr IVPB Q8H-IV [facility]; Protocol Last Admin: 08/19/18 11:46 Dose: 100 mls/hr Vancomycin HCl (Vancomycin (Pre-Docked)) 1,000 mg in 250 mls @ 166.667 mls/hr IVPB Q12H [facility]; Protocol Last Admin: 08/19/18 03:21 Dose: 166.667 mls/hr Nystatin (Nystop Powder -) 1 applic TP BID [facility] Last Admin: 08/19/18 11:46 Dose: 1 applic Quetiapine Fumarate (Seroquel -) 100 mg GT BID [facility] Last Admin: 08/19/18 11:46 Dose: 100 mg Ranitidine HCl (Zantac Oral Solution -) 150 mg GT DAILY [facility] Last Admin: 08/19/18 11:46 Dose: 150 mg - Objective Vital Signs: Vital Signs Temperature 98.4 F 08/19/18 15:10 Pulse Rate 92 H 08/19/18 15:10 Respiratory Rate 20 08/19/18 15:10 Blood Pressure 134/83 08/19/18 15:10 O2 Sat by Pulse Oximetry (%) 99 08/19/18 09:40 Constitutional: Yes: Well Nourished, Calm Eyes: Yes: WNL HENT: Yes: WNL Neck: Yes: WNL Cardiovascular: Yes: Regular Rate and Rhythm, S1, S2 Respiratory: Yes: Rhonchi (few scattered rhonchi) Gastrointestinal: Yes: Normal Bowel Sounds, Soft Extremities: Yes: WNL Edema: Yes Labs: CBC, BMP 08/18/18 06:45 08/18/18 06:45 INR, PTT INR 1.14 (0.83-1.09) H 08/16/18 01:00 Assessment/Plan Problem List - Problems (1) Chronic respiratory failure Code(s): J96.10 - CHRONIC RESPIRATORY FAILURE, UNSP W HYPOXIA OR HYPERCAPNIA (2) Lung malignancy Code(s): C34.90 - MALIGNANT NEOPLASM OF UNSP PART OF UNSP BRONCHUS OR LUNG (3) Anemia Code(s): D64.9 - ANEMIA, UNSPECIFIED (4) CKD (chronic kidney disease), stage III Code(s): N18.3 - CHRONIC KIDNEY DISEASE, STAGE 3 (MODERATE) (5) COPD (chronic obstructive pulmonary disease) Code(s): J44.9 - CHRONIC OBSTRUCTIVE PULMONARY DISEASE, UNSPECIFIED (6) Diabetes mellitus Code(s): E11.9 - TYPE 2 DIABETES MELLITUS WITHOUT COMPLICATIONS (7) GERD (gastroesophageal reflux disease) Code(s): K21.9 - GASTRO-ESOPHAGEAL REFLUX DISEASE WITHOUT ESOPHAGITIS (8) HTN (hypertension) Code(s): I10 - ESSENTIAL (PRIMARY) HYPERTENSION (9) Pleural effusion Code(s): J90 - PLEURAL EFFUSION, NOT ELSEWHERE CLASSIFIED (10) Tracheostomy care Code(s): Z43.0 - ENCOUNTER FOR ATTENTION TO TRACHEOSTOMY Assessment/Plan AC Mode of vent. Suction as needed. Trach is intact and a suction catheter can be passed in its entirety Normal transfusion thresholds Empiric ABX per ID Noted DNR Prognosis poor Given advanced disease would opt for conservative/comfort measures DR NORRIS
--- NOTE | 2018-08-19 17:33 | PN ---
Progress Note (short form) - Note Progress Note: covering dr anuel Berkowitz 1. Hyponatremia 2. resp failure 3. lung cancer 4. DM 5. hx lung cancer 6. GERD 7. hx MRSA Current Medications Acetaminophen (Tylenol Oral Solution -) 650 mg GT Q6H PRN PRN Reason: PAIN OR FEVER Last Admin: 08/17/18 10:20 Dose: 650 mg Albuterol/Ipratropium (Duoneb -) 1 amp NEB RQID [facility] Last Admin: 08/19/18 16:22 Dose: 1 amp Collagenase (Santyl -) 1 applic TP DAILY [facility] Last Admin: 08/19/18 11:46 Dose: 1 applic Piperacillin Sod/Tazobactam (Sod 3.375 gm/ Dextrose) 50 mls @ 100 mls/hr IVPB Q8H-IV [facility]; Protocol Last Admin: 08/19/18 11:46 Dose: 100 mls/hr Nystatin (Nystop Powder -) 1 applic TP BID [facility] Last Admin: 08/19/18 11:46 Dose: 1 applic Quetiapine Fumarate (Seroquel -) 100 mg GT BID [facility] Last Admin: 08/19/18 11:46 Dose: 100 mg Ranitidine HCl (Zantac Oral Solution -) 150 mg GT DAILY [facility] Last Admin: 08/19/18 11:46 Dose: 150 mg Last Vital Signs Temp Pulse Resp BP Pulse Ox 98.4 F 92 H 20 134/83 99 08/19/18 15:10 08/19/18 15:10 08/19/18 15:10 08/19/18 15:10 08/19/18 09:40 CBC, BMP 08/18/18 06:45 08/18/18 06:45
[2018-08-20] MEDS ORDERED: PIPERACILLIN/TAZOBACTAM 3.375 GM VIAL IVPB ONE ×3 (00:34→17:13)
[2018-08-20] MEDS ORDERED: DEXTROSE 5%-WATER - 50 ML IVPB ONE ×3 (00:35→17:13)
[2018-08-20] MEDS: NYSTATIN POWDER 100,000 UNITS/GM - 15 GM TOPICAL POWDER TP SCH ×3 (00:43→22:50)
[2018-08-20] MEDS: PIPERACILLIN/TAZOB 3.375 GM 3.375 GM in DEXTROSE 5%-WATER - 50 ML IVPB SCH ×3 (01:28→17:25)
[2018-08-20] MEDS: ALBUTEROL SO4 2.5/IPRATROPIUM 0.5 INH SOL 3 ML VIAL.NEB. NEB SCH ×4 (07:48→20:56)
[2018-08-20] MEDS ORDERED: QUEtiapine FUMARATE 50 MG TABLET ONE (09:51)
[2018-08-20] MEDS: QUEtiapine FUMARATE 100 MG TABLET (FP) GT SCH ×2 (10:00→22:13)
[2018-08-20] MEDS: RANITIDINE HCL 150 MG/10 ML UNIT-DOSE GT SCH (10:00)
[2018-08-20] MEDS: COLLAGENASE CLOSTRIDIUM HIST. 30 GRAMS TUBE TP SCH (10:03)
--- NOTE | 2018-08-20 10:37 | PN ---
Progress Note, Physician History of Present Illness: PULMONARY AWAKE,ALERT ON VENT SUPPORT AC MODE ,-RESP DISTRESS,+ THICK TRACHEAL SECRETIONS - Current Medication List Current Medications: Active Medications Acetaminophen (Tylenol Oral Solution -) 650 mg GT Q6H PRN PRN Reason: PAIN OR FEVER Last Admin: 08/17/18 10:20 Dose: 650 mg Albuterol/Ipratropium (Duoneb -) 1 amp NEB RQID [facility] Last Admin: 08/20/18 07:48 Dose: 1 amp Collagenase (Santyl -) 1 applic TP DAILY [facility] Last Admin: 08/20/18 10:03 Dose: 1 applic Piperacillin Sod/Tazobactam (Sod 3.375 gm/ Dextrose) 50 mls @ 100 mls/hr IVPB Q8H-IV [facility]; Protocol Last Admin: 08/20/18 09:59 Dose: 100 mls/hr Nystatin (Nystop Powder -) 1 applic TP BID [facility] Last Admin: 08/20/18 10:04 Dose: 1 applic Quetiapine Fumarate (Seroquel -) 100 mg GT BID [facility] Last Admin: 08/20/18 10:00 Dose: 100 mg Ranitidine HCl (Zantac Oral Solution -) 150 mg GT DAILY [facility] Last Admin: 08/20/18 10:00 Dose: 150 mg - Objective Vital Signs: Vital Signs Temperature 98.6 F 08/20/18 10:11 Pulse Rate 92 H 08/20/18 10:11 Respiratory Rate 28 H 08/20/18 10:11 Blood Pressure 135/73 08/20/18 10:11 O2 Sat by Pulse Oximetry (%) 100 08/19/18 21:00 Constitutional: Yes: Well Nourished, Calm Eyes: Yes: WNL HENT: Yes: WNL Neck: Yes: Supple (TRACH) Cardiovascular: Yes: Regular Rate and Rhythm, S1, S2 Respiratory: Yes: Rhonchi (SCATTERED RAKESH RHONCHI) Gastrointestinal: Yes: Normal Bowel Sounds, Soft Extremities: Yes: WNL Edema: No Labs: CBC, BMP 08/18/18 06:45 08/18/18 06:45 INR, PTT INR 1.14 (0.83-1.09) H 08/16/18 01:00 Assessment/Plan Problem List - Problems (1) Chronic respiratory failure Code(s): J96.10 - CHRONIC RESPIRATORY FAILURE, UNSP W HYPOXIA OR HYPERCAPNIA (2) Lung malignancy Code(s): C34.90 - MALIGNANT NEOPLASM OF UNSP PART OF UNSP BRONCHUS OR LUNG (3) Anemia Code(s): D64.9 - ANEMIA, UNSPECIFIED (4) CKD (chronic kidney disease), stage III Code(s): N18.3 - CHRONIC KIDNEY DISEASE, STAGE 3 (MODERATE) (5) COPD (chronic obstructive pulmonary disease) Code(s): J44.9 - CHRONIC OBSTRUCTIVE PULMONARY DISEASE, UNSPECIFIED (6) Diabetes mellitus Code(s): E11.9 - TYPE 2 DIABETES MELLITUS WITHOUT COMPLICATIONS (7) GERD (gastroesophageal reflux disease) Code(s): K21.9 - GASTRO-ESOPHAGEAL REFLUX DISEASE WITHOUT ESOPHAGITIS (8) HTN (hypertension) Code(s): I10 - ESSENTIAL (PRIMARY) HYPERTENSION (9) Pleural effusion Code(s): J90 - PLEURAL EFFUSION, NOT ELSEWHERE CLASSIFIED (10) Tracheostomy care Code(s): Z43.0 - ENCOUNTER FOR ATTENTION TO TRACHEOSTOMY Assessment/Plan AC Mode of vent. Suction as needed. Trach is intact and a suction catheter can be passed in its entirety Normal transfusion thresholds Empiric ABX per ID Noted DNR Prognosis poor Given advanced disease would opt for conservative/comfort measures DR NORRIS
--- NOTE | 2018-08-20 11:53 | PN ---
Progress Note, Physician Chief Complaint: EVENTS AND NOTES REVIEWED NO ACUTE EVENTS - Current Medication List Current Medications: Active Medications Acetaminophen (Tylenol Oral Solution -) 650 mg GT Q6H PRN PRN Reason: PAIN OR FEVER Last Admin: 08/17/18 10:20 Dose: 650 mg Albuterol/Ipratropium (Duoneb -) 1 amp NEB RQID [facility] Last Admin: 08/20/18 11:10 Dose: 1 amp Collagenase (Santyl -) 1 applic TP DAILY [facility] Last Admin: 08/20/18 10:03 Dose: 1 applic Piperacillin Sod/Tazobactam (Sod 3.375 gm/ Dextrose) 50 mls @ 100 mls/hr IVPB Q8H-IV [facility]; Protocol Last Admin: 08/20/18 09:59 Dose: 100 mls/hr Nystatin (Nystop Powder -) 1 applic TP BID [facility] Last Admin: 08/20/18 10:04 Dose: 1 applic Quetiapine Fumarate (Seroquel -) 100 mg GT BID [facility] Last Admin: 08/20/18 10:00 Dose: 100 mg Ranitidine HCl (Zantac Oral Solution -) 150 mg GT DAILY [facility] Last Admin: 08/20/18 10:00 Dose: 150 mg - Objective Vital Signs: Vital Signs Temperature 98.6 F 08/20/18 10:11 Pulse Rate 89 08/20/18 11:02 Respiratory Rate 28 H 08/20/18 10:11 Blood Pressure 135/73 08/20/18 10:11 O2 Sat by Pulse Oximetry (%) 98 08/20/18 11:02 Constitutional: Yes: No Distress Cardiovascular: Yes: Regular Rate and Rhythm Respiratory: Yes: Diminished, Mechanically Ventilated Gastrointestinal: Yes: Soft, Other (GT) Genitourinary: Yes: Incontinence Musculoskeletal: Yes: Muscle Weakness Wound/Incision: Yes: Dressing Dry and Intact, Unapproximated, Other Labs: CBC, BMP 08/18/18 06:45 08/18/18 06:45 INR, PTT INR 1.14 (0.83-1.09) H 08/16/18 01:00 Problem List - Problems (1) Acute on chronic respiratory failure with hypercapnia Code(s): J96.22 - ACUTE AND CHRONIC RESPIRATORY FAILURE WITH HYPERCAPNIA (2) Anemia Code(s): D64.9 - ANEMIA, UNSPECIFIED (3) CKD (chronic kidney disease), stage III Code(s): N18.3 - CHRONIC KIDNEY DISEASE, STAGE 3 (MODERATE) (4) Chronic respiratory failure Code(s): J96.10 - CHRONIC RESPIRATORY FAILURE, UNSP W HYPOXIA OR HYPERCAPNIA (5) Diabetes mellitus Code(s): E11.9 - TYPE 2 DIABETES MELLITUS WITHOUT COMPLICATIONS (6) Functional quadriplegia Code(s): R53.2 - FUNCTIONAL QUADRIPLEGIA (7) GERD (gastroesophageal reflux disease) Code(s): K21.9 - GASTRO-ESOPHAGEAL REFLUX DISEASE WITHOUT ESOPHAGITIS (8) HTN (hypertension) Code(s): I10 - ESSENTIAL (PRIMARY) HYPERTENSION (9) Hyponatremia Code(s): E87.1 - HYPO-OSMOLALITY AND HYPONATREMIA (10) Lung malignancy Code(s): C34.90 - MALIGNANT NEOPLASM OF UNSP PART OF UNSP BRONCHUS OR LUNG (11) Pleural effusion Code(s): J90 - PLEURAL EFFUSION, NOT ELSEWHERE CLASSIFIED (12) Sepsis Code(s): A41.9 - SEPSIS, UNSPECIFIED ORGANISM (13) Tracheostomy care Code(s): Z43.0 - ENCOUNTER FOR ATTENTION TO TRACHEOSTOMY Assessment/Plan IV ABX/NEBS/02 SUPPORT PULMONARY EVAL ONCOLOGY CONSULT CALLED H/O OF SQUAMOUS CELL CANCER DIAGNOSED AND WORKED UP AT [facility] ANEMIA FROM SEPSIS AND MALGINANCY MONITOR LEVELS TRANSFUSE PRBC CHECK LABS RENAL EVAL HYPONATREMIA/CRI
--- NOTE | 2018-08-20 12:13 | PN ---
Progress Note (short form) - Note Progress Note: resting comfortably on vent vancomycin trough 36.3 Vital Signs Period Temp Pulse Resp BP Sys/Corado Pulse Ox Last 24 Hr 98.0 F-98.6 F 89-92 16-29 105-138/58-83 98-100 cor-rrr lungs decreased bs at bases abd soft,nt ext +edema CBC, BMP 08/18/18 06:45 08/18/18 06:45 Microbiology 08/15/18 01:00 Blood - Peripheral Venous Blood Culture - Preliminary NO GROWTH OBTAINED AFTER 96 HOURS, INCUBATION TO CONTINUE FOR 1 DAYS. 08/15/18 01:00 Blood - Peripheral Venous Blood Culture - Preliminary NO GROWTH OBTAINED AFTER 96 HOURS, INCUBATION TO CONTINUE FOR 1 DAYS. 08/17/18 11:00 Sputum - Endotrachea Suction/Ventilator Gram Stain - Final 08/17/18 11:00 Sputum - Endotrachea Suction/Ventilator Sputum Culture - Preliminary Non Lactose Fermenting Gnb Non Lactose Fermenting Gnb#2 Beta Hem Streptococcus Group G 08/16/18 15:00 Perineal Gram Stain - Final 08/16/18 15:00 Perineal Wound Culture - Preliminary Non Lactose Fermenting Gnb Proteus Mirabilis Enterococcus Faecalis 08/16/18 02:30 Urine - Urine Lin Urine Culture - Final Escherichia Coli 08/16/18 15:00 Urine For Antigen Detection Legionella Antigen - Final 08/16/18 15:00 Urine For Antigen Detection Streptococcus pneumoniae Antigen (M - Final a/p chronic respiratory failure sepsis ?pneumonia ecoli uti sacral ulcer hold vancomycin, continue zosyn f/u vanco level, f/u cultures, bmp in am
--- NOTE | 2018-08-20 14:56 | PN ---
Progress Note (short form) - Note Progress Note: covering dr agee Problems 1. Hyponatremia 2. resp failure 3. lung cancer 4. DM 5. hx lung cancer 6. GERD 7. hx MRSA Current Medications Acetaminophen (Tylenol Oral Solution -) 650 mg GT Q6H PRN PRN Reason: PAIN OR FEVER Last Admin: 08/17/18 10:20 Dose: 650 mg Albuterol/Ipratropium (Duoneb -) 1 amp NEB RQID [facility] Last Admin: 08/20/18 11:10 Dose: 1 amp Collagenase (Santyl -) 1 applic TP DAILY [facility] Last Admin: 08/20/18 10:03 Dose: 1 applic Piperacillin Sod/Tazobactam (Sod 3.375 gm/ Dextrose) 50 mls @ 100 mls/hr IVPB Q8H-IV [facility]; Protocol Last Admin: 08/20/18 09:59 Dose: 100 mls/hr Nystatin (Nystop Powder -) 1 applic TP BID [facility] Last Admin: 08/20/18 10:04 Dose: 1 applic Quetiapine Fumarate (Seroquel -) 100 mg GT BID [facility] Last Admin: 08/20/18 10:00 Dose: 100 mg Ranitidine HCl (Zantac Oral Solution -) 150 mg GT DAILY [facility] Last Admin: 08/20/18 10:00 Dose: 150 mg Last Vital Signs Temp Pulse Resp BP Pulse Ox 98.6 F 89 22 H 135/73 98 08/20/18 10:11 08/20/18 11:02 08/20/18 12:05 08/20/18 10:11 08/20/18 11:02 no recent labs bmp ordered for tomorrow
[2018-08-21] MEDS ORDERED: PIPERACILLIN/TAZOBACTAM 3.375 GM VIAL IVPB ONE ×3 (00:32→17:52)
[2018-08-21] MEDS ORDERED: DEXTROSE 5%-WATER - 50 ML IVPB ONE ×3 (00:32→17:52)
[2018-08-21] MEDS: PIPERACILLIN/TAZOB 3.375 GM 3.375 GM in DEXTROSE 5%-WATER - 50 ML IVPB SCH ×3 (02:03→18:03)
[2018-08-21 07:39] LABS: HEMATOCRIT 26.7 % (32.4-45.2); HEMOGLOBIN 8.1 GM/dL (10.7-15.3); MCH 24.5 pg (25.7-33.7); MCHC 30.4 g/dl (32.0-36.0); MEAN CELL VOLUME 80.5 fl (80-96); MEAN PLT VOLUME 7.2 fl (7.5-11.1); PLATELET COUNT 691 K/MM3 (134-434); RBC 3.31 M/mm3 (3.60-5.2); RDW 18.5 % (11.6-15.6); WHITE BLOOD COUNT 18.6 K/mm3 (4.0-10.0)
[2018-08-21 08:52] LABS: ANION GAP 10 MMOL/L (8-16); BLOOD UREA NITROGEN 20 mg/dL (7-18); CALCIUM 9.9 mg/dL (8.5-10.1); CHLORIDE 99 mmol/L (98-107); CO2 29 mmol/L (21-32); CREATININE 0.7 mg/dL (0.55-1.3); POTASSIUM 4.5 mmol/L (3.5-5.1); SODIUM 137 mmol/L (136-145)
[2018-08-21 08:54] LABS: GLUCOSE,RANDOM 472 mg/dL (74-106)
[2018-08-21] MEDS ORDERED: INSULIN (NOVOLOG) ASPART 100 UNITS/ML 10ML VIAL SQ STA (09:00)
[2018-08-21] MEDS ORDERED: PT OWN MED DRAWER 7, Y5N ONE (09:11)
[2018-08-21] MEDS ORDERED: QUEtiapine FUMARATE 50 MG TABLET ONE ×2 (09:11→21:11)
[2018-08-21] MEDS: RANITIDINE HCL 150 MG/10 ML UNIT-DOSE GT SCH (09:23)
[2018-08-21] MEDS: QUEtiapine FUMARATE 100 MG TABLET (FP) GT SCH ×2 (09:23→21:25)
[2018-08-21] MEDS: COLLAGENASE CLOSTRIDIUM HIST. 30 GRAMS TUBE TP SCH (09:32)
[2018-08-21] MEDS: NYSTATIN POWDER 100,000 UNITS/GM - 15 GM TOPICAL POWDER TP SCH ×2 (09:33→21:31)
--- NOTE | 2018-08-21 11:52 | PN ---
Progress Note, Physician History of Present Illness: pulmonary no distress, on vent support ac mode - Current Medication List Current Medications: Active Medications Acetaminophen (Tylenol Oral Solution -) 650 mg GT Q6H PRN PRN Reason: PAIN OR FEVER Last Admin: 08/17/18 10:20 Dose: 650 mg Collagenase (Santyl -) 1 applic TP DAILY [facility] Last Admin: 08/21/18 09:32 Dose: 1 applic Piperacillin Sod/Tazobactam (Sod 3.375 gm/ Dextrose) 50 mls @ 100 mls/hr IVPB Q8H-IV [facility]; Protocol Last Admin: 08/21/18 09:25 Dose: 100 mls/hr Nystatin (Nystop Powder -) 1 applic TP BID [facility] Last Admin: 08/21/18 09:33 Dose: 1 applic Quetiapine Fumarate (Seroquel -) 100 mg GT BID [facility] Last Admin: 08/21/18 09:23 Dose: 100 mg Ranitidine HCl (Zantac Oral Solution -) 150 mg GT DAILY [facility] Last Admin: 08/21/18 09:23 Dose: 150 mg - Objective Vital Signs: Vital Signs Temperature 98.4 F 08/21/18 02:00 Pulse Rate 93 H 08/21/18 02:00 Respiratory Rate 24 H 08/21/18 06:52 Blood Pressure 143/76 08/21/18 02:00 O2 Sat by Pulse Oximetry (%) 98 08/20/18 21:00 Constitutional: Yes: Well Nourished, Calm Eyes: Yes: WNL HENT: Yes: WNL Neck: Yes: WNL Cardiovascular: Yes: Regular Rate and Rhythm, S1, S2 Respiratory: Yes: Rhonchi (few rhonchi) Gastrointestinal: Yes: Normal Bowel Sounds, Soft Extremities: Yes: WNL Edema: No Labs: CBC, BMP 08/21/18 06:00 08/21/18 06:00 INR, PTT INR 1.14 (0.83-1.09) H 08/16/18 01:00 Assessment/Plan Problem List - Problems (1) Chronic respiratory failure Code(s): J96.10 - CHRONIC RESPIRATORY FAILURE, UNSP W HYPOXIA OR HYPERCAPNIA (2) Lung malignancy Code(s): C34.90 - MALIGNANT NEOPLASM OF UNSP PART OF UNSP BRONCHUS OR LUNG (3) Anemia Code(s): D64.9 - ANEMIA, UNSPECIFIED (4) CKD (chronic kidney disease), stage III Code(s): N18.3 - CHRONIC KIDNEY DISEASE, STAGE 3 (MODERATE) (5) COPD (chronic obstructive pulmonary disease) Code(s): J44.9 - CHRONIC OBSTRUCTIVE PULMONARY DISEASE, UNSPECIFIED (6) Diabetes mellitus Code(s): E11.9 - TYPE 2 DIABETES MELLITUS WITHOUT COMPLICATIONS (7) GERD (gastroesophageal reflux disease) Code(s): K21.9 - GASTRO-ESOPHAGEAL REFLUX DISEASE WITHOUT ESOPHAGITIS (8) HTN (hypertension) Code(s): I10 - ESSENTIAL (PRIMARY) HYPERTENSION (9) Pleural effusion Code(s): J90 - PLEURAL EFFUSION, NOT ELSEWHERE CLASSIFIED (10) Tracheostomy care Code(s): Z43.0 - ENCOUNTER FOR ATTENTION TO TRACHEOSTOMY Assessment/Plan AC Mode of vent. Suction as needed. Trach is intact and a suction catheter can be passed in its entirety Normal transfusion thresholds Empiric ABX per ID Noted DNR Prognosis poor Given advanced disease would opt for conservative/comfort measures DR NORRIS
--- NOTE | 2018-08-21 12:45 | PN ---
Progress Note, Physician Chief Complaint: EVENTS AND NOTES REVIEWED NO ACUTE EVENTS - Current Medication List Current Medications: Active Medications Acetaminophen (Tylenol Oral Solution -) 650 mg GT Q6H PRN PRN Reason: PAIN OR FEVER Last Admin: 08/17/18 10:20 Dose: 650 mg Collagenase (Santyl -) 1 applic TP DAILY [facility] Last Admin: 08/21/18 09:32 Dose: 1 applic Piperacillin Sod/Tazobactam (Sod 3.375 gm/ Dextrose) 50 mls @ 100 mls/hr IVPB Q8H-IV [facility]; Protocol Last Admin: 08/21/18 09:25 Dose: 100 mls/hr Nystatin (Nystop Powder -) 1 applic TP BID [facility] Last Admin: 08/21/18 09:33 Dose: 1 applic Quetiapine Fumarate (Seroquel -) 100 mg GT BID [facility] Last Admin: 08/21/18 09:23 Dose: 100 mg Ranitidine HCl (Zantac Oral Solution -) 150 mg GT DAILY [facility] Last Admin: 08/21/18 09:23 Dose: 150 mg - Objective Vital Signs: Vital Signs Temperature 98.4 F 08/21/18 02:00 Pulse Rate 91 H 08/21/18 12:07 Respiratory Rate 25 H 08/21/18 10:03 Blood Pressure 143/76 08/21/18 02:00 O2 Sat by Pulse Oximetry (%) 99 08/21/18 12:07 HENT: Yes: Other Cardiovascular: Yes: Pulse Irregular Respiratory: Yes: Diminished, Other Gastrointestinal: Yes: Soft, Other (GTUBE) Genitourinary: Yes: Other Musculoskeletal: Yes: Muscle Weakness Wound/Incision: Yes: Other Neurological: Yes: Confusion, Pre-Existing Deficit, Weakness Labs: CBC, BMP 08/21/18 06:00 08/21/18 06:00 INR, PTT INR 1.14 (0.83-1.09) H 08/16/18 01:00 Problem List - Problems (1) Acute on chronic respiratory failure with hypercapnia Code(s): J96.22 - ACUTE AND CHRONIC RESPIRATORY FAILURE WITH HYPERCAPNIA (2) Anemia Code(s): D64.9 - ANEMIA, UNSPECIFIED (3) CKD (chronic kidney disease), stage III Code(s): N18.3 - CHRONIC KIDNEY DISEASE, STAGE 3 (MODERATE) (4) Chronic respiratory failure Code(s): J96.10 - CHRONIC RESPIRATORY FAILURE, UNSP W HYPOXIA OR HYPERCAPNIA (5) Diabetes mellitus Code(s): E11.9 - TYPE 2 DIABETES MELLITUS WITHOUT COMPLICATIONS (6) Functional quadriplegia Code(s): R53.2 - FUNCTIONAL QUADRIPLEGIA (7) GERD (gastroesophageal reflux disease) Code(s): K21.9 - GASTRO-ESOPHAGEAL REFLUX DISEASE WITHOUT ESOPHAGITIS (8) HTN (hypertension) Code(s): I10 - ESSENTIAL (PRIMARY) HYPERTENSION (9) Hyponatremia Code(s): E87.1 - HYPO-OSMOLALITY AND HYPONATREMIA (10) Lung malignancy Code(s): C34.90 - MALIGNANT NEOPLASM OF UNSP PART OF UNSP BRONCHUS OR LUNG (11) Pleural effusion Code(s): J90 - PLEURAL EFFUSION, NOT ELSEWHERE CLASSIFIED (12) Sepsis Code(s): A41.9 - SEPSIS, UNSPECIFIED ORGANISM (13) Tracheostomy care Code(s): Z43.0 - ENCOUNTER FOR ATTENTION TO TRACHEOSTOMY Assessment/Plan IV ABX/NEBS/02 SUPPORT PULMONARY EVAL ONCOLOGY CONSULT CALLED H/O OF SQUAMOUS CELL CANCER DIAGNOSED AND WORKED UP AT [facility] ANEMIA FROM SEPSIS AND MALGINANCY MONITOR LEVELS TRANSFUSE PRBC CHECK LABS RENAL EVAL HYPONATREMIA/CRI
[2018-08-21] MEDS ORDERED: INSULIN (NOVOLOG) ASPART 100 UNITS/ML 10ML VIAL SQ ONE (13:15)
--- NOTE | 2018-08-21 17:28 | PN ---
Progress Note (short form) - Note Progress Note: covering dr agee Problems 1. Hyponatremia 2. resp failure 3. lung cancer 4. DM 5. hx lung cancer 6. GERD 7. hx MRSA Current Medications Acetaminophen (Tylenol Oral Solution -) 650 mg GT Q6H PRN PRN Reason: PAIN OR FEVER Last Admin: 08/17/18 10:20 Dose: 650 mg Collagenase (Santyl -) 1 applic TP DAILY [facility] Last Admin: 08/21/18 09:32 Dose: 1 applic Piperacillin Sod/Tazobactam (Sod 3.375 gm/ Dextrose) 50 mls @ 100 mls/hr IVPB Q8H-IV [facility]; Protocol Last Admin: 08/21/18 09:25 Dose: 100 mls/hr Insulin Aspart (Novolog Vial Sliding Scale -) 1 vial SQ ACHS [facility]; Protocol Insulin Detemir (Levemir Vial) 15 units SQ HS [facility] Nystatin (Nystop Powder -) 1 applic TP BID [facility] Last Admin: 08/21/18 09:33 Dose: 1 applic Quetiapine Fumarate (Seroquel -) 100 mg GT BID [facility] Last Admin: 08/21/18 09:23 Dose: 100 mg Ranitidine HCl (Zantac Oral Solution -) 150 mg GT DAILY [facility] Last Admin: 08/21/18 09:23 Dose: 150 mg Last Vital Signs Temp Pulse Resp BP Pulse Ox 98.4 F 91 H 29 H 143/76 99 08/21/18 02:00 08/21/18 12:07 08/21/18 13:44 08/21/18 02:00 08/21/18 12:07 Lungs rhonchi Heart dimished sounds Abd soft Ext 3 + edema CBC, BMP 08/21/18 06:00 08/21/18 12:28 08/18/18 08/21/18 06:45 06:00 Sodium 130 L 137 Potassium 4.1 4.5 BUN 21 H 20 H Creatinine 0.7 0.7 Random Glucose 274 H Albumin 1.6 L IMP- resp failure anasarca Plan- add lasix to the regimen follow up the serum albumin level
[2018-08-21] MEDS: INSULIN SLIDING SCALE (NOVOLOG) 1 VIAL SQ SCH ×2 (18:02→21:29)
[2018-08-21] MEDS: ACETAMINOPHEN 650 MG/20.3 ML ORAL SOLUTION (CUPS) GT PRN (21:26)
[2018-08-21] MEDS ORDERED: INSULIN (LEVEMIR) 100 UNITS/ML UNITS SQ SCH (22:00)
[2018-08-22] MEDS ORDERED: DEXTROSE 5%-WATER - 50 ML IVPB ONE ×2 (01:15→09:58)
[2018-08-22] MEDS ORDERED: PIPERACILLIN/TAZOBACTAM 3.375 GM VIAL IVPB ONE ×2 (01:15→09:58)
[2018-08-22] MEDS: PIPERACILLIN/TAZOB 3.375 GM 3.375 GM in DEXTROSE 5%-WATER - 50 ML IVPB SCH ×2 (02:15→10:48)
[2018-08-22] MEDS: INSULIN SLIDING SCALE (NOVOLOG) 1 VIAL SQ SCH ×4 (06:42→22:59)
[2018-08-22 07:43] LABS: HEMATOCRIT 28.5 % (32.4-45.2); HEMOGLOBIN 8.6 GM/dL (10.7-15.3); MCH 24.2 pg (25.7-33.7); MCHC 30.2 g/dl (32.0-36.0); MEAN CELL VOLUME 80.4 fl (80-96); MEAN PLT VOLUME 7.1 fl (7.5-11.1); PLATELET COUNT 774 K/MM3 (134-434); RBC 3.55 M/mm3 (3.60-5.2); RDW 18.6 % (11.6-15.6); WHITE BLOOD COUNT 22.4 K/mm3 (4.0-10.0)
[2018-08-22 09:14] LABS: ANION GAP 9 MMOL/L (8-16); BLOOD UREA NITROGEN 27 mg/dL (7-18); CALCIUM 10.1 mg/dL (8.5-10.1); CHLORIDE 101 mmol/L (98-107); CO2 30 mmol/L (21-32); CREATININE 0.6 mg/dL (0.55-1.3); GLUCOSE,RANDOM 278 mg/dL (74-106); MAGNESIUM 2.3 mg/dL (1.8-2.4); POTASSIUM 4.6 mmol/L (3.5-5.1); SODIUM 140 mmol/L (136-145)
[2018-08-22] MEDS ORDERED: QUEtiapine FUMARATE 50 MG TABLET ONE ×2 (09:57→20:39)
[2018-08-22] MEDS ORDERED: PT OWN MED DRAWER 7, Y5N ONE ×3 (09:58→20:40)
[2018-08-22] MEDS: FUROSEMIDE 20 MG TABLET (FP) GT SCH (10:48)
[2018-08-22] MEDS: QUEtiapine FUMARATE 100 MG TABLET (FP) GT SCH ×2 (10:48→22:49)
[2018-08-22] MEDS: RANITIDINE HCL 150 MG/10 ML UNIT-DOSE GT SCH (10:48)
[2018-08-22] MEDS: COLLAGENASE CLOSTRIDIUM HIST. 30 GRAMS TUBE TP SCH (10:49)
[2018-08-22] MEDS: NYSTATIN POWDER 100,000 UNITS/GM - 15 GM TOPICAL POWDER TP SCH ×2 (10:49→22:50)
--- NOTE | 2018-08-22 11:10 | PN ---
Progress Note (short form) - Note Progress Note: PULMONARY Vented on volume assist control. No fevers recorded. Vital Signs Period Temp Pulse Resp BP Sys/Corado Pulse Ox Last 24 Hr 97.8 F-99.2 F 81-99 18-32 130-159/76-93 97-99 Gen: vented, awake Heart: RRR Lung: bilateral rhonchi Abd: soft, nontender Ext: + UE edema CBC, BMP 08/22/18 07:05 08/22/18 07:05 Active Medications Acetaminophen (Tylenol Oral Solution -) 650 mg GT Q6H PRN PRN Reason: PAIN OR FEVER Last Admin: 08/21/18 21:26 Dose: 650 mg Collagenase (Santyl -) 1 applic TP DAILY [facility] Last Admin: 08/22/18 10:49 Dose: 1 applic Furosemide (Lasix -) 20 mg GT DAILY [facility] Last Admin: 08/22/18 10:48 Dose: 20 mg Piperacillin Sod/Tazobactam (Sod 3.375 gm/ Dextrose) 50 mls @ 100 mls/hr IVPB Q8H-IV [facility]; Protocol Last Admin: 08/22/18 10:48 Dose: 100 mls/hr Insulin Aspart (Novolog Vial Sliding Scale -) 1 vial SQ ACHS [facility]; Protocol Last Admin: 08/22/18 06:42 Dose: 6 units Insulin Detemir (Levemir Vial) 15 units SQ HS [facility] Last Admin: 08/21/18 21:28 Dose: 15 units Nystatin (Nystop Powder -) 1 applic TP BID [facility] Last Admin: 08/22/18 10:49 Dose: 1 applic Quetiapine Fumarate (Seroquel -) 100 mg GT BID [facility] Last Admin: 08/22/18 10:48 Dose: 100 mg Ranitidine HCl (Zantac Oral Solution -) 150 mg GT DAILY [facility] Last Admin: 08/22/18 10:48 Dose: 150 mg A/P Chronic Respiratory Failure r/o Pneumonia UTI Sepsis Sacral Decubitus Ulcer h/o Lung Ca DM - continue antibiotics per ID - continue lasix - monitor urine output, creatinine - enteral feeds - DVT/GI prophylaxis
--- NOTE | 2018-08-22 11:15 | PN ---
Progress Note, Physician Chief Complaint: patient seen and examined - Current Medication List Current Medications: Active Medications Acetaminophen (Tylenol Oral Solution -) 650 mg GT Q6H PRN PRN Reason: PAIN OR FEVER Last Admin: 08/21/18 21:26 Dose: 650 mg Collagenase (Santyl -) 1 applic TP DAILY [facility] Last Admin: 08/22/18 10:49 Dose: 1 applic Furosemide (Lasix -) 20 mg GT DAILY [facility] Last Admin: 08/22/18 10:48 Dose: 20 mg Piperacillin Sod/Tazobactam (Sod 3.375 gm/ Dextrose) 50 mls @ 100 mls/hr IVPB Q8H-IV [facility]; Protocol Last Admin: 08/22/18 10:48 Dose: 100 mls/hr Insulin Aspart (Novolog Vial Sliding Scale -) 1 vial SQ ACHS [facility]; Protocol Last Admin: 08/22/18 06:42 Dose: 6 units Insulin Detemir (Levemir Vial) 15 units SQ HS [facility] Last Admin: 08/21/18 21:28 Dose: 15 units Nystatin (Nystop Powder -) 1 applic TP BID [facility] Last Admin: 08/22/18 10:49 Dose: 1 applic Quetiapine Fumarate (Seroquel -) 100 mg GT BID [facility] Last Admin: 08/22/18 10:48 Dose: 100 mg Ranitidine HCl (Zantac Oral Solution -) 150 mg GT DAILY [facility] Last Admin: 08/22/18 10:48 Dose: 150 mg - Objective Vital Signs: Vital Signs Temperature 98.2 F 08/22/18 04:00 Pulse Rate 90 08/22/18 08:08 Respiratory Rate 32 H 08/22/18 11:09 Blood Pressure 159/87 08/22/18 04:00 O2 Sat by Pulse Oximetry (%) 98 08/22/18 08:08 Constitutional: Yes: Calm Neck: Yes: Other (trach) Cardiovascular: Yes: Regular Rate and Rhythm, S1, S2 Respiratory: Yes: Mechanically Ventilated Gastrointestinal: Yes: Normal Bowel Sounds, Soft, Other (g tube) Labs: CBC, BMP 08/22/18 07:05 08/22/18 07:05 INR, PTT INR 1.14 (0.83-1.09) H 08/16/18 01:00 Problem List - Problems (1) Chronic respiratory failure Assessment/Plan: AC mode on vent Code(s): J96.10 - CHRONIC RESPIRATORY FAILURE, UNSP W HYPOXIA OR HYPERCAPNIA (2) Lung malignancy Assessment/Plan: ct lung noted right lung collapsed left lung opacity mass enclosing the SVC appreciate heme note poor prognosis Code(s): C34.90 - MALIGNANT NEOPLASM OF UNSP PART OF UNSP BRONCHUS OR LUNG (3) Leukocytosis Assessment/Plan: wbc inc to 22.4 c diff pending Microbiology 08/17/18 11:00 Sputum - Endotrachea Suction/Ventilator Gram Stain - Final 08/17/18 11:00 Sputum - Endotrachea Suction/Ventilator Sputum Culture - Final Pseudomonas Aeruginosa Pseudomonas Aeruginosa#2 Beta Hem Streptococcus Group G zosyn iv- per ID Code(s): D72.829 - ELEVATED WHITE BLOOD CELL COUNT, UNSPECIFIED (4) Diabetes mellitus Assessment/Plan: bgm noted will increase levemir to 20 units on sliding scale [id number] 8.5 Code(s): E11.9 - TYPE 2 DIABETES MELLITUS WITHOUT COMPLICATIONS Qualifiers: Diabetes mellitus type: type 2
[2018-08-22] MEDS: LOSARTAN POTASSIUM 50 MG TABLET (FP) PO SCH (12:29)
--- NOTE | 2018-08-22 15:57 | PN ---
Progress Note, Physician History of Present Illness: Pt seen and examined at bedside. She is tolerating feeds. - Current Medication List Current Medications: Active Medications Acetaminophen (Tylenol Oral Solution -) 650 mg GT Q6H PRN PRN Reason: PAIN OR FEVER Last Admin: 08/21/18 21:26 Dose: 650 mg Collagenase (Santyl -) 1 applic TP DAILY [facility] Last Admin: 08/22/18 10:49 Dose: 1 applic Furosemide (Lasix -) 20 mg GT DAILY [facility] Last Admin: 08/22/18 10:48 Dose: 20 mg Piperacillin Sod/Tazobactam (Sod 3.375 gm/ Dextrose) 50 mls @ 100 mls/hr IVPB Q8H-IV [facility]; Protocol Last Admin: 08/22/18 10:48 Dose: 100 mls/hr Insulin Aspart (Novolog Vial Sliding Scale -) 1 vial SQ ACHS [facility]; Protocol Last Admin: 08/22/18 12:31 Dose: 4 units Insulin Detemir (Levemir Vial) 20 units SQ HS [facility] Losartan Potassium (Cozaar -) 50 mg PO DAILY [facility] Last Admin: 08/22/18 12:29 Dose: 50 mg Nystatin (Nystop Powder -) 1 applic TP BID [facility] Last Admin: 08/22/18 10:49 Dose: 1 applic Quetiapine Fumarate (Seroquel -) 100 mg GT BID [facility] Last Admin: 08/22/18 10:48 Dose: 100 mg Ranitidine HCl (Zantac Oral Solution -) 150 mg GT DAILY [facility] Last Admin: 08/22/18 10:48 Dose: 150 mg Vancomycin HCl (Vancomycin Oral Solution) 125 mg PO Q6HPO [facility] - Objective Vital Signs: Vital Signs Temperature 98.1 F 08/22/18 14:18 Pulse Rate 99 H 08/22/18 14:18 Respiratory Rate 20 08/22/18 14:18 Blood Pressure 121/75 08/22/18 14:18 O2 Sat by Pulse Oximetry (%) 98 08/22/18 08:08 Constitutional: Yes: Calm Eyes: Yes: Conjunctiva Clear HENT: Yes: Other (trache) Cardiovascular: Yes: S1, S2 Respiratory: Yes: Mechanically Ventilated Gastrointestinal: Yes: Other (peg tube) Genitourinary: Yes: Lin Present Musculoskeletal: Yes: Muscle Weakness Edema: Yes Edema: LUE: Trace, RUE: Trace Neurological: Yes: Other (awake) Labs: CBC, BMP 08/22/18 07:05 08/22/18 07:05 INR, PTT INR 1.14 (0.83-1.09) H 08/16/18 01:00 Problem List - Problems (1) Hyponatremia Code(s): E87.1 - HYPO-OSMOLALITY AND HYPONATREMIA (2) CKD (chronic kidney disease), stage III Code(s): N18.3 - CHRONIC KIDNEY DISEASE, STAGE 3 (MODERATE) (3) COPD (chronic obstructive pulmonary disease) Code(s): J44.9 - CHRONIC OBSTRUCTIVE PULMONARY DISEASE, UNSPECIFIED (4) Chronic respiratory failure Code(s): J96.10 - CHRONIC RESPIRATORY FAILURE, UNSP W HYPOXIA OR HYPERCAPNIA (5) Diabetes mellitus Code(s): E11.9 - TYPE 2 DIABETES MELLITUS WITHOUT COMPLICATIONS Qualifiers: Diabetes mellitus type: type 2 Assessment/Plan Current Medications Generic Name Dose Route Start Last Admin Trade Name Freq PRN Reason Stop Dose Admin Acetaminophen 650 mg 08/16/18 06:22 08/21/18 21:26 Tylenol Oral Solution - GT 650 mg Q6H PRN Administration PAIN OR FEVER Collagenase 1 applic 08/17/18 14:30 08/22/18 10:49 Santyl - TP 1 applic DAILY [facility] Administration Furosemide 20 mg 08/22/18 10:00 08/22/18 10:48 Lasix - GT 20 mg DAILY [facility] Administration Piperacillin Sod/Tazobactam 50 mls @ 100 mls/hr 08/16/18 18:00 08/22/18 10:48 Sod 3.375 gm/ Dextrose IVPB 100 mls/hr Q8H-IV [facility] Administration Protocol Insulin Aspart 1 vial 08/21/18 16:30 08/22/18 12:31 Novolog Vial Sliding Scale - SQ 4 units ACHS [facility] Administration Protocol Insulin Detemir 20 units 08/22/18 22:00 Levemir Vial SQ HS [facility] Losartan Potassium 50 mg 08/22/18 11:45 08/22/18 12:29 Cozaar - PO 50 mg DAILY [facility] Administration Nystatin 1 applic 08/16/18 10:00 08/22/18 10:49 Nystop Powder - TP 1 applic BID [facility] Administration Quetiapine Fumarate 100 mg 08/16/18 10:00 11/19/18 10:48 Seroquel - GT 100 mg BID [facility] Administration Ranitidine HCl 150 mg 08/16/18 10:00 08/22/18 10:48 Zantac Oral Solution - GT 150 mg DAILY [facility] Administration Vancomycin HCl 125 mg 08/22/18 18:00 Vancomycin Oral Solution PO Q6HPO [facility] Impression 1. Hyponatremia 2. resp failure 3. lung cancer 4. DM 5. hx lung cancer 6. GERD 7. hx MRSA Plan - agree with lasix - monitor lytes - cont feeds - vent support - monitor bp - follow cultures
--- NOTE | 2018-08-22 16:27 | PN ---
Progress Note, Physician History of Present Illness: Awake on ventilator afebrile + diarrhea reported Stool C difficile + WBC elevated BC (-) Urine c/s E coli Wound c/s , sputum c/s mixed - Current Medication List Current Medications: Active Medications Acetaminophen (Tylenol Oral Solution -) 650 mg GT Q6H PRN PRN Reason: PAIN OR FEVER Last Admin: 08/21/18 21:26 Dose: 650 mg Collagenase (Santyl -) 1 applic TP DAILY [facility] Last Admin: 08/22/18 10:49 Dose: 1 applic Furosemide (Lasix -) 20 mg GT DAILY [facility] Last Admin: 08/22/18 10:48 Dose: 20 mg Piperacillin Sod/Tazobactam (Sod 3.375 gm/ Dextrose) 50 mls @ 100 mls/hr IVPB Q8H-IV [facility]; Protocol Last Admin: 08/22/18 10:48 Dose: 100 mls/hr Insulin Aspart (Novolog Vial Sliding Scale -) 1 vial SQ ACHS [facility]; Protocol Last Admin: 08/22/18 12:31 Dose: 4 units Insulin Detemir (Levemir Vial) 20 units SQ [facility] Losartan Potassium (Cozaar -) 50 mg PO DAILY [facility] Last Admin: 08/22/18 12:29 Dose: 50 mg Nystatin (Nystop Powder -) 1 applic TP BID [facility] Last Admin: 08/22/18 10:49 Dose: 1 applic Quetiapine Fumarate (Seroquel -) 100 mg GT BID [facility] Last Admin: 08/22/18 10:48 Dose: 100 mg Ranitidine HCl (Zantac Oral Solution -) 150 mg GT DAILY [facility] Last Admin: 08/22/18 10:48 Dose: 150 mg Vancomycin HCl (Vancomycin Oral Solution) 125 mg PO Q6HPO [facility] - Objective Vital Signs: Vital Signs Temperature 98.1 F 08/22/18 14:18 Pulse Rate 99 H 08/22/18 14:18 Respiratory Rate 20 08/22/18 14:18 Blood Pressure 121/75 08/22/18 14:18 O2 Sat by Pulse Oximetry (%) 98 08/22/18 08:08 Constitutional: Yes: No Distress Cardiovascular: Yes: Regular Rate and Rhythm, S1, S2 Respiratory: Yes: Mechanically Ventilated Gastrointestinal: Yes: Normal Bowel Sounds, Soft. No: Tenderness Edema: Yes Labs: CBC, BMP 08/22/18 07:05 08/22/18 07:05 INR, PTT INR 1.14 (0.83-1.09) H 08/16/18 01:00 Assessment/Plan C difficile colitis Chronic respiratory failure Probable metastatic neoplasm UTI Sacral decbuitus ulcer Anemia Hx MRSA Discontinue vancomycin/ zosyn Vancomycin via GT Contact precautions Prognosis poor
[2018-08-22] MEDS: VANCOMYCIN 250 MG/5 ML ORAL SOLUTION PO SCH ×2 (17:52→23:19)
[2018-08-22] MEDS ORDERED: INSULIN (LEVEMIR) 100 UNITS/ML UNITS SQ SCH (22:00)
[2018-08-23] MEDS: INSULIN SLIDING SCALE (NOVOLOG) 1 VIAL SQ SCH ×4 (07:02→23:20)
[2018-08-23] MEDS: VANCOMYCIN 250 MG/5 ML ORAL SOLUTION PO SCH ×4 (07:02→23:17)
[2018-08-23 08:08] LABS: BASO % 0.3 % (0-2.0); EOS % 1.1 % (0-4.5); HEMATOCRIT 28.6 % (32.4-45.2); HEMOGLOBIN 8.6 GM/dL (10.7-15.3); LYMPH % 5.1 % (8-40); MCH 24.2 pg (25.7-33.7); MCHC 30.2 g/dl (32.0-36.0); MEAN CELL VOLUME 80.2 fl (80-96); MEAN PLT VOLUME 7.3 fl (7.5-11.1); MONO % 4.7 % (3.8-10.2); NEUT % 88.8 % (42.8-82.8); PLATELET COUNT 660 K/MM3 (134-434); RBC 3.56 M/mm3 (3.60-5.2); RDW 19.1 % (11.6-15.6); WHITE BLOOD COUNT 19.5 K/mm3 (4.0-10.0)
[2018-08-23 08:24] LABS: ALBUMIN 1.9 g/dl (3.4-5.0); ALK PHOS 125 U/L (45-117); ANION GAP 8 MMOL/L (8-16); BILIRUBIN,TOTAL 0.2 mg/dL (0.2-1); BLOOD UREA NITROGEN 34 mg/dL (7-18); CALCIUM 9.7 mg/dL (8.5-10.1); CHLORIDE 100 mmol/L (98-107); CO2 33 mmol/L (21-32); CREATININE 0.8 mg/dL (0.55-1.3); GLUCOSE,RANDOM 288 mg/dL (74-106); POTASSIUM 4.9 mmol/L (3.5-5.1); SGOT/AST 9 U/L (15-37); SGPT/ALT 19 U/L (13-61); SODIUM 141 mmol/L (136-145); TOT PROT 7.1 g/dl (6.4-8.2)
[2018-08-23] MEDS ORDERED: QUEtiapine FUMARATE 50 MG TABLET ONE ×2 (10:20→23:11)
[2018-08-23] MEDS ORDERED: INSULIN (NOVOLOG) ASPART 100 UNITS/ML 10ML VIAL ONE (10:20)
[2018-08-23] MEDS ORDERED: PT OWN MED DRAWER 7, Y5N ONE (10:21)
[2018-08-23] MEDS: FUROSEMIDE 20 MG TABLET (FP) GT SCH (10:29)
[2018-08-23] MEDS: RANITIDINE HCL 150 MG/10 ML UNIT-DOSE GT SCH (10:29)
[2018-08-23] MEDS: QUEtiapine FUMARATE 100 MG TABLET (FP) GT SCH ×2 (10:29→23:17)
[2018-08-23] MEDS: LOSARTAN POTASSIUM 50 MG TABLET (FP) PO SCH (10:29)
[2018-08-23] MEDS: COLLAGENASE CLOSTRIDIUM HIST. 30 GRAMS TUBE TP SCH (10:29)
[2018-08-23] MEDS: NYSTATIN POWDER 100,000 UNITS/GM - 15 GM TOPICAL POWDER TP SCH ×2 (10:32→23:18)
--- NOTE | 2018-08-23 11:18 | PN ---
Progress Note (short form) - Note Progress Note: PULMONARY Vented on volume assist control. No fevers recorded. Vital Signs Period Temp Pulse Resp BP Sys/[place] Pulse Ox Last 24 Hr 98.1 F-99.4 F 91-101 18-23 121-161/60-80 100-100 Gen: vented, awake Heart: RRR Lung: bilateral rhonchi Abd: soft, nontender Ext: + UE edema CBC, BMP 08/23/18 07:00 08/23/18 07:00 Active Medications Acetaminophen (Tylenol Oral Solution -) 650 mg GT Q6H PRN PRN Reason: PAIN OR FEVER Last Admin: 08/21/18 21:26 Dose: 650 mg Collagenase (Santyl -) 1 applic TP DAILY [facility] Last Admin: 08/23/18 10:29 Dose: 1 applic Furosemide (Lasix -) 20 mg GT DAILY [facility] Last Admin: 08/23/18 10:29 Dose: 20 mg Insulin Aspart (Novolog Vial Sliding Scale -) 1 vial SQ ACHS [facility]; Protocol Last Admin: 08/23/18 07:02 Dose: 8 units Insulin Detemir (Levemir Vial) 20 units SQ HS [facility] Last Admin: 08/22/18 22:48 Dose: 20 units Losartan Potassium (Cozaar -) 50 mg PO DAILY [facility] Last Admin: 08/23/18 10:29 Dose: 50 mg Nystatin (Nystop Powder -) 1 applic TP BID [facility] Last Admin: 08/23/18 10:32 Dose: 1 applic Quetiapine Fumarate (Seroquel -) 100 mg GT BID [facility] Last Admin: 08/23/18 10:29 Dose: 100 mg Ranitidine HCl (Zantac Oral Solution -) 150 mg GT DAILY [facility] Last Admin: 08/23/18 10:29 Dose: 150 mg Vancomycin HCl (Vancomycin Oral Solution) 125 mg PO Q6HPO [facility] Last Admin: 08/23/18 07:02 Dose: 125 mg A/P Chronic Respiratory Failure r/o Pneumonia UTI + C diff Ag Sepsis Sacral Decubitus Ulcer h/o Lung Ca DM - continue antibiotics per ID - continue lasix - monitor urine output, creatinine - enteral feeds - DVT/GI prophylaxis
[2018-08-23] MEDS ORDERED: INSULIN (LEVEMIR) 100 UNITS/ML UNITS SQ SCH (13:00)
--- NOTE | 2018-08-23 13:01 | PN ---
Progress Note, Physician Chief Complaint: patient seen and examined no fever wbc elevated c diff postive - Current Medication List Current Medications: Active Medications Acetaminophen (Tylenol Oral Solution -) 650 mg GT Q6H PRN PRN Reason: PAIN OR FEVER Last Admin: 08/21/18 21:26 Dose: 650 mg Collagenase (Santyl -) 1 applic TP DAILY [facility] Last Admin: 08/23/18 10:29 Dose: 1 applic Furosemide (Lasix -) 20 mg GT DAILY [facility] Last Admin: 08/23/18 10:29 Dose: 20 mg Insulin Aspart (Novolog Vial Sliding Scale -) 1 vial SQ ACHS [facility]; Protocol Last Admin: 08/23/18 12:23 Dose: 4 units Insulin Detemir (Levemir Vial) 20 units SQ HS [facility] Last Admin: 08/22/18 22:48 Dose: 20 units Losartan Potassium (Cozaar -) 50 mg PO DAILY [facility] Last Admin: 08/23/18 10:29 Dose: 50 mg Nystatin (Nystop Powder -) 1 applic TP BID [facility] Last Admin: 08/23/18 10:32 Dose: 1 applic Quetiapine Fumarate (Seroquel -) 100 mg GT BID [facility] Last Admin: 08/23/18 10:29 Dose: 100 mg Ranitidine HCl (Zantac Oral Solution -) 150 mg GT DAILY [facility] Last Admin: 08/23/18 10:29 Dose: 150 mg Vancomycin HCl (Vancomycin Oral Solution) 125 mg PO Q6HPO [facility] Last Admin: 08/23/18 12:23 Dose: 125 mg - Objective Vital Signs: Vital Signs Temperature 98.1 F 08/23/18 10:00 Pulse Rate 91 H 08/23/18 10:00 Respiratory Rate 18 08/23/18 10:00 Blood Pressure 161/80 08/23/18 10:00 O2 Sat by Pulse Oximetry (%) 100 08/23/18 01:55 Constitutional: Yes: Calm Neck: Yes: Other (trach) Cardiovascular: Yes: Regular Rate and Rhythm, S1, S2 Respiratory: Yes: Mechanically Ventilated Gastrointestinal: Yes: Normal Bowel Sounds, Soft, Other (g tube) Wound/Incision: Yes: Dressing Removed (sacral wound deep) Labs: CBC, BMP 08/23/18 07:00 08/23/18 07:00 INR, PTT INR 1.14 (0.83-1.09) H 08/16/18 01:00 Problem List - Problems (1) Chronic respiratory failure Assessment/Plan: AC mode on vent Code(s): J96.10 - CHRONIC RESPIRATORY FAILURE, UNSP W HYPOXIA OR HYPERCAPNIA (2) Lung malignancy Assessment/Plan: ct lung noted right lung collapsed left lung opacity mass enclosing the SVC appreciate heme note poor prognosis scd to both legs Code(s): C34.90 - MALIGNANT NEOPLASM OF UNSP PART OF UNSP BRONCHUS OR LUNG (3) Leukocytosis Assessment/Plan: wbc inc to 22.4 c diff positive on vancomycin via g tube Microbiology 08/17/18 11:00 Sputum - Endotrachea Suction/Ventilator Gram Stain - Final 08/17/18 11:00 Sputum - Endotrachea Suction/Ventilator Sputum Culture - Final Pseudomonas Aeruginosa Pseudomonas Aeruginosa#2 Beta Hem Streptococcus Group G contact isolation Code(s): D72.829 - ELEVATED WHITE BLOOD CELL COUNT, UNSPECIFIED (4) Diabetes mellitus Assessment/Plan: bgm noted will increase levemir to 20 units to 25 units on sliding scale hgba1c 8.5 Code(s): E11.9 - TYPE 2 DIABETES MELLITUS WITHOUT COMPLICATIONS Qualifiers: Diabetes mellitus type: type 2 (5) Decubitus ulcer Assessment/Plan: collagenase to wound Code(s): L89.90 - PRESSURE ULCER OF UNSPECIFIED SITE, UNSPECIFIED STAGE
--- NOTE | 2018-08-23 13:22 | PN ---
Progress Note, Physician History of Present Illness: Pt seen and examined at bedside. She remains on a vent. She appears comfortable. - Current Medication List Current Medications: Active Medications Acetaminophen (Tylenol Oral Solution -) 650 mg GT Q6H PRN PRN Reason: PAIN OR FEVER Last Admin: 08/21/18 21:26 Dose: 650 mg Collagenase (Santyl -) 1 applic TP DAILY [facility] Last Admin: 08/23/18 10:29 Dose: 1 applic Furosemide (Lasix -) 20 mg GT DAILY [facility] Last Admin: 08/23/18 10:29 Dose: 20 mg Insulin Aspart (Novolog Vial Sliding Scale -) 1 vial SQ ACHS [facility]; Protocol Last Admin: 08/23/18 12:23 Dose: 4 units Insulin Detemir (Levemir Vial) 25 units SQ HS [facility] Losartan Potassium (Cozaar -) 50 mg PO DAILY [facility] Last Admin: 08/23/18 10:29 Dose: 50 mg Nystatin (Nystop Powder -) 1 applic TP BID [facility] Last Admin: 08/23/18 10:32 Dose: 1 applic Quetiapine Fumarate (Seroquel -) 100 mg GT BID [facility] Last Admin: 08/23/18 10:29 Dose: 100 mg Ranitidine HCl (Zantac Oral Solution -) 150 mg GT DAILY [facility] Last Admin: 08/23/18 10:29 Dose: 150 mg Vancomycin HCl (Vancomycin Oral Solution) 125 mg PO Q6HPO [facility] Last Admin: 08/23/18 12:23 Dose: 125 mg - Objective Vital Signs: Vital Signs Temperature 98.1 F 08/23/18 10:00 Pulse Rate 91 H 08/23/18 10:00 Respiratory Rate 18 08/23/18 10:00 Blood Pressure 161/80 08/23/18 10:00 O2 Sat by Pulse Oximetry (%) 100 08/23/18 01:55 Constitutional: Yes: Calm Eyes: Yes: Conjunctiva Clear HENT: Yes: Other (trache) Neck: Yes: Supple Cardiovascular: Yes: S1, S2 Respiratory: Yes: Mechanically Ventilated Gastrointestinal: Yes: Soft, Other (peg) Genitourinary: Yes: Incontinence Edema: LUE: Trace, RUE: Trace Neurological: Yes: Other (awake) Labs: CBC, BMP 08/23/18 07:00 08/23/18 07:00 INR, PTT INR 1.14 (0.83-1.09) H 08/16/18 01:00 Problem List - Problems (1) Hyponatremia Code(s): E87.1 - HYPO-OSMOLALITY AND HYPONATREMIA (2) CKD (chronic kidney disease), stage III Code(s): N18.3 - CHRONIC KIDNEY DISEASE, STAGE 3 (MODERATE) (3) COPD (chronic obstructive pulmonary disease) Code(s): J44.9 - CHRONIC OBSTRUCTIVE PULMONARY DISEASE, UNSPECIFIED (4) Chronic respiratory failure Code(s): J96.10 - CHRONIC RESPIRATORY FAILURE, UNSP W HYPOXIA OR HYPERCAPNIA (5) Diabetes mellitus Code(s): E11.9 - TYPE 2 DIABETES MELLITUS WITHOUT COMPLICATIONS Qualifiers: Diabetes mellitus type: type 2 Assessment/Plan Current Medications Generic Name Dose Route Start Last Admin Trade Name Freq PRN Reason Stop Dose Admin Acetaminophen 650 mg 08/16/18 06:22 08/21/18 21:26 Tylenol Oral Solution - GT 650 mg Q6H PRN Administration PAIN OR FEVER Collagenase 1 applic 08/17/18 14:30 08/23/18 10:29 Santyl - TP 1 applic DAILY [facility] Administration Furosemide 20 mg 08/22/18 10:00 08/23/18 10:29 Lasix - GT 20 mg DAILY [facility] Administration Insulin Aspart 1 vial 08/21/18 16:30 08/23/18 12:23 Novolog Vial Sliding Scale - SQ 4 units ACHS [facility] Administration Protocol Insulin Detemir 25 units 08/23/18 13:00 Levemir Vial SQ HS [facility] Losartan Potassium 50 mg 08/22/18 11:45 08/23/18 10:29 Cozaar - PO 50 mg DAILY [facility] Administration Nystatin 1 applic 08/16/18 10:00 08/23/18 10:32 Nystop Powder - TP 1 applic BID [facility] Administration Quetiapine Fumarate 100 mg 08/16/18 10:00 08/23/18 10:29 Seroquel - GT 100 mg BID [facility] Administration Ranitidine HCl 150 mg 08/16/18 10:00 08/23/18 10:29 Zantac Oral Solution - GT 150 mg DAILY [facility] Administration Vancomycin HCl 125 mg 08/22/18 18:00 08/23/18 12:23 Vancomycin Oral Solution PO 125 mg Q6HPO [facility] Administration Impression 1. Hyponatremia 2. resp failure 3. lung cancer 4. DM 5. hx lung cancer 6. GERD 7. hx MRSA Plan - repeat labs in am - check bicarb in am - may need to hold lasix - cont tube feeds - monitor sodium levels - vent support - monitor bp - follow cultures
[2018-08-23] MEDS ORDERED: HEPARIN NA (PORCINE) 5,000 UNITS/ML 1ML VIAL SQ SCH (22:00)
[2018-08-24] MEDS: VANCOMYCIN 250 MG/5 ML ORAL SOLUTION PO SCH ×2 (05:42→12:08)
[2018-08-24 05:45] VITALS: TEMP 99.3
[2018-08-24 06:15] VITALS: BP 119/63; PULSE 95
[2018-08-24] MEDS: INSULIN SLIDING SCALE (NOVOLOG) 1 VIAL SQ SCH ×3 (06:19→17:10)
[2018-08-24 08:00] LABS: ANION GAP 9 MMOL/L (8-16); BLOOD UREA NITROGEN 37 mg/dL (7-18); CALCIUM 9.7 mg/dL (8.5-10.1); CHLORIDE 101 mmol/L (98-107); CO2 31 mmol/L (21-32); CREATININE 0.6 mg/dL (0.55-1.3); GLUCOSE,RANDOM 200 mg/dL (74-106); POTASSIUM 4.7 mmol/L (3.5-5.1); SODIUM 142 mmol/L (136-145)
--- NOTE | 2018-08-24 09:05 | PN ---
Progress Note, Physician - Current Medication List Current Medications: Active Medications Acetaminophen (Tylenol Oral Solution -) 650 mg GT Q6H PRN PRN Reason: PAIN OR FEVER Last Admin: 08/21/18 21:26 Dose: 650 mg Collagenase (Santyl -) 1 applic TP DAILY [facility] Last Admin: 08/23/18 10:29 Dose: 1 applic Furosemide (Lasix -) 20 mg GT DAILY [facility] Last Admin: 08/23/18 10:29 Dose: 20 mg Insulin Aspart (Novolog Vial Sliding Scale -) 1 vial SQ ACHS [facility]; Protocol Last Admin: 08/24/18 06:19 Dose: 2 units Insulin Detemir (Levemir Vial) 25 units SQ HS [facility] Last Admin: 08/23/18 23:18 Dose: 25 units Losartan Potassium (Cozaar -) 50 mg PO DAILY [facility] Last Admin: 08/23/18 10:29 Dose: 50 mg Nystatin (Nystop Powder -) 1 applic TP BID [facility] Last Admin: 08/23/18 23:18 Dose: 1 applic Quetiapine Fumarate (Seroquel -) 100 mg GT BID [facility] Last Admin: 08/23/18 23:17 Dose: 100 mg Ranitidine HCl (Zantac Oral Solution -) 150 mg GT DAILY [facility] Last Admin: 08/23/18 10:29 Dose: 150 mg Vancomycin HCl (Vancomycin Oral Solution) 125 mg PO Q6HPO [facility] Last Admin: 08/24/18 05:42 Dose: 125 mg - Objective Vital Signs: Vital Signs Temperature 99.3 F 08/24/18 05:45 Pulse Rate 95 H 08/24/18 06:00 Respiratory Rate 18 08/24/18 06:00 Blood Pressure 119/63 08/24/18 06:00 O2 Sat by Pulse Oximetry (%) 99 08/23/18 21:00 Cardiovascular: Yes: S1, S2 Respiratory: Yes: Mechanically Ventilated Gastrointestinal: Yes: Normal Bowel Sounds, Soft Labs: CBC, BMP 08/23/18 07:00 08/24/18 06:00 INR, PTT INR 1.14 (0.83-1.09) H 08/16/18 01:00 Problem List - Problems (1) Acute on chronic respiratory failure with hypercapnia Code(s): J96.22 - ACUTE AND CHRONIC RESPIRATORY FAILURE WITH HYPERCAPNIA (2) Diabetes mellitus Code(s): E11.9 - TYPE 2 DIABETES MELLITUS WITHOUT COMPLICATIONS Qualifiers: Diabetes mellitus type: type 2 (3) Lung malignancy Code(s): C34.90 - MALIGNANT NEOPLASM OF UNSP PART OF UNSP BRONCHUS OR LUNG (4) Decubitus ulcer Code(s): L89.90 - PRESSURE ULCER OF UNSPECIFIED SITE, UNSPECIFIED STAGE (5) UTI (urinary tract infection) due to urinary indwelling catheter Code(s): T83.511A - I/I REACT D/T INDWELLING URETHRAL CATHETER, INIT; N39.0 - URINARY TRACT INFECTION, SITE NOT SPECIFIED Assessment/Plan - Problems (1) Chronic respiratory failure Assessment/Plan: AC mode on vent Code(s): J96.10 - CHRONIC RESPIRATORY FAILURE, UNSP W HYPOXIA OR HYPERCAPNIA (2) Lung malignancy Assessment/Plan: ct lung noted right lung collapsed left lung opacity mass enclosing the SVC appreciate heme note poor prognosis scd to both legs Code(s): C34.90 - MALIGNANT NEOPLASM OF UNSP PART OF UNSP BRONCHUS OR LUNG (3) Leukocytosis Assessment/Plan: wbc inc to 22.4 c diff positive on vancomycin via g tube Microbiology 08/17/18 11:00 Sputum - Endotrachea Suction/Ventilator Gram Stain - Final 08/17/18 11:00 Sputum - Endotrachea Suction/Ventilator Sputum Culture - Final Pseudomonas Aeruginosa Pseudomonas Aeruginosa#2 Beta Hem Streptococcus Group G contact isolation Code(s): D72.829 - ELEVATED WHITE BLOOD CELL COUNT, UNSPECIFIED (4) Diabetes mellitus Assessment/Plan: bgm noted will increase levemir to 20 units to 25 units on sliding scale hgba1c 8.5 Code(s): E11.9 - TYPE 2 DIABETES MELLITUS WITHOUT COMPLICATIONS Qualifiers: Diabetes mellitus type: type 2 (5) Decubitus ulcer Assessment/Plan: collagenase to wound Code(s): L89.90 - PRESSURE ULCER OF UNSPECIFIED SITE, UNSPECIFIED STAGE
[2018-08-24] MEDS: RANITIDINE HCL 150 MG/10 ML UNIT-DOSE GT SCH (11:06)
[2018-08-24] MEDS: QUEtiapine FUMARATE 100 MG TABLET (FP) GT SCH (11:06)
[2018-08-24] MEDS: LOSARTAN POTASSIUM 50 MG TABLET (FP) PO SCH (11:06)
[2018-08-24] MEDS: FUROSEMIDE 20 MG TABLET (FP) GT SCH (11:07)
--- NOTE | 2018-08-24 11:25 | PN ---
Progress Note, Physician History of Present Illness: Awake on ventilator afebrile + diarrhea reported Stool C difficile + WBC remains elevated BC (-) Urine c/s E coli Wound c/s , sputum c/s mixed - Current Medication List Current Medications: Active Medications Acetaminophen (Tylenol Oral Solution -) 650 mg GT Q6H PRN PRN Reason: PAIN OR FEVER Last Admin: 08/21/18 21:26 Dose: 650 mg Collagenase (Santyl -) 1 applic TP DAILY [facility] Last Admin: 08/23/18 10:29 Dose: 1 applic Furosemide (Lasix -) 20 mg GT DAILY [facility] Last Admin: 08/23/18 10:29 Dose: 20 mg Insulin Aspart (Novolog Vial Sliding Scale -) 1 vial SQ ACHS [facility]; Protocol Last Admin: 08/24/18 06:19 Dose: 2 units Insulin Detemir (Levemir Vial) 25 units SQ HS [facility] Last Admin: 08/23/18 23:18 Dose: 25 units Losartan Potassium (Cozaar -) 50 mg PO DAILY [facility] Last Admin: 08/23/18 10:29 Dose: 50 mg Nystatin (Nystop Powder -) 1 applic TP BID [facility] Last Admin: 08/23/18 23:18 Dose: 1 applic Quetiapine Fumarate (Seroquel -) 100 mg GT BID [facility] Last Admin: 08/23/18 23:17 Dose: 100 mg Ranitidine HCl (Zantac Oral Solution -) 150 mg GT DAILY [facility] Last Admin: 08/23/18 10:29 Dose: 150 mg Vancomycin HCl (Vancomycin Oral Solution) 125 mg PO Q6HPO [facility] Last Admin: 08/24/18 05:42 Dose: 125 mg - Objective Vital Signs: Vital Signs Temperature 99.3 F 08/24/18 05:45 Pulse Rate 95 H 08/24/18 06:00 Respiratory Rate 28 H 08/24/18 09:00 Blood Pressure 119/63 08/24/18 06:00 O2 Sat by Pulse Oximetry (%) 99 08/23/18 21:00 Constitutional: Yes: No Distress, Obese Cardiovascular: Yes: Regular Rate and Rhythm, S1, S2 Respiratory: Yes: Mechanically Ventilated Gastrointestinal: Yes: Normal Bowel Sounds, Soft. No: Tenderness Edema: Yes Labs: CBC, BMP 08/23/18 07:00 08/24/18 06:00 INR, PTT INR 1.14 (0.83-1.09) H 08/16/18 01:00 Assessment/Plan C difficile colitis Chronic respiratory failure Metastatic neoplasm UTI Sacral decbuitus ulcer Anemia Hx MRSA Vancomycin via GT Complete 10d course Contact precautions Prognosis poor
[2018-08-24] MEDS ORDERED: QUEtiapine FUMARATE 50 MG TABLET ONE (11:48)
--- NOTE | 2018-08-24 12:02 | PN ---
Progress Note, Physician History of Present Illness: Pt seen and examined at bedside. She is awake and appears comfortable. She remain on vent via trache. - Current Medication List Current Medications: Active Medications Acetaminophen (Tylenol Oral Solution -) 650 mg GT Q6H PRN PRN Reason: PAIN OR FEVER Last Admin: 08/21/18 21:26 Dose: 650 mg Collagenase (Santyl -) 1 applic TP DAILY [facility] Last Admin: 08/23/18 10:29 Dose: 1 applic Furosemide (Lasix -) 20 mg GT DAILY [facility] Last Admin: 08/23/18 10:29 Dose: 20 mg Insulin Aspart (Novolog Vial Sliding Scale -) 1 vial SQ ACHS [facility]; Protocol Last Admin: 08/24/18 06:19 Dose: 2 units Insulin Detemir (Levemir Vial) 25 units SQ HS [facility] Last Admin: 08/23/18 23:18 Dose: 25 units Losartan Potassium (Cozaar -) 50 mg PO DAILY [facility] Last Admin: 08/23/18 10:29 Dose: 50 mg Nystatin (Nystop Powder -) 1 applic TP BID [facility] Last Admin: 08/23/18 23:18 Dose: 1 applic Quetiapine Fumarate (Seroquel -) 100 mg GT BID [facility] Last Admin: 08/23/18 23:17 Dose: 100 mg Ranitidine HCl (Zantac Oral Solution -) 150 mg GT DAILY [facility] Last Admin: 08/23/18 10:29 Dose: 150 mg Vancomycin HCl (Vancomycin Oral Solution) 125 mg PO Q6HPO [facility] Last Admin: 08/24/18 05:42 Dose: 125 mg - Objective Vital Signs: Vital Signs Temperature 99.3 F 08/24/18 05:45 Pulse Rate 95 H 08/24/18 06:00 Respiratory Rate 28 H 08/24/18 09:00 Blood Pressure 119/63 08/24/18 06:00 O2 Sat by Pulse Oximetry (%) 99 08/23/18 21:00 Constitutional: Yes: Calm Eyes: Yes: Conjunctiva Clear HENT: Yes: Atraumatic Cardiovascular: Yes: S1, S2 Respiratory: Yes: Mechanically Ventilated Gastrointestinal: Yes: Other (peg) Edema: Yes Edema: LUE: 1+, RUE: 1+ Neurological: Yes: Other (awake) Labs: CBC, BMP 08/23/18 07:00 08/24/18 06:00 INR, PTT INR 1.14 (0.83-1.09) H 08/16/18 01:00 Problem List - Problems (1) Hyponatremia Code(s): E87.1 - HYPO-OSMOLALITY AND HYPONATREMIA (2) CKD (chronic kidney disease), stage III Code(s): N18.3 - CHRONIC KIDNEY DISEASE, STAGE 3 (MODERATE) (3) COPD (chronic obstructive pulmonary disease) Code(s): J44.9 - CHRONIC OBSTRUCTIVE PULMONARY DISEASE, UNSPECIFIED (4) Chronic respiratory failure Code(s): J96.10 - CHRONIC RESPIRATORY FAILURE, UNSP W HYPOXIA OR HYPERCAPNIA (5) Diabetes mellitus Code(s): E11.9 - TYPE 2 DIABETES MELLITUS WITHOUT COMPLICATIONS Qualifiers: Diabetes mellitus type: type 2 Assessment/Plan Current Medications Generic Name Dose Route Start Last Admin Trade Name Freq PRN Reason Stop Dose Admin Acetaminophen 650 mg 08/16/18 06:22 08/21/18 21:26 Tylenol Oral Solution - GT 650 mg Q6H PRN Administration PAIN OR FEVER Collagenase 1 applic 08/17/18 14:30 08/23/18 10:29 Santyl - TP 1 applic DAILY [facility] Administration Furosemide 20 mg 08/22/18 10:00 08/23/18 10:29 Lasix - GT 20 mg DAILY [facility] Administration Insulin Aspart 1 vial 08/21/18 16:30 08/24/18 06:19 Novolog Vial Sliding Scale - SQ 2 units ACHS [facility] Administration Protocol Insulin Detemir 25 units 08/23/18 13:00 08/23/18 23:18 Levemir Vial SQ 25 units HS [facility] Administration Losartan Potassium 50 mg 08/22/18 11:45 08/23/18 10:29 Cozaar - PO 50 mg DAILY [facility] Administration Nystatin 1 applic 08/16/18 10:00 08/23/18 23:18 Nystop Powder - TP 1 applic BID [facility] Administration Quetiapine Fumarate 100 mg 08/16/18 10:00 08/23/18 23:17 Seroquel - GT 100 mg BID [facility] Administration Ranitidine HCl 150 mg 08/16/18 10:00 08/23/18 10:29 Zantac Oral Solution - GT 150 mg DAILY [facility] Administration Vancomycin HCl 125 mg 08/22/18 18:00 08/24/18 05:42 Vancomycin Oral Solution PO 125 mg Q6HPO [facility] Administration Impression 1. Hyponatremia 2. resp failure 3. lung cancer 4. DM 5. hx lung cancer 6. GERD 7. hx MRSA Plan - cont feeds - cont lasix - lytes stable - volume status is improved - sodium is improved as well - pulmonary follow up - monitor bp
[2018-08-24] MEDS: NYSTATIN POWDER 100,000 UNITS/GM - 15 GM TOPICAL POWDER TP SCH (12:07)
[2018-08-24] MEDS: COLLAGENASE CLOSTRIDIUM HIST. 30 GRAMS TUBE TP SCH (12:07)
--- NOTE | 2018-08-24 12:55 | PN ---
Progress Note, Physician History of Present Illness: pulmonary comfortable,no distress,on vent support - Current Medication List Current Medications: Active Medications Acetaminophen (Tylenol Oral Solution -) 650 mg GT Q6H PRN PRN Reason: PAIN OR FEVER Last Admin: 08/21/18 21:26 Dose: 650 mg Collagenase (Santyl -) 1 applic TP DAILY [facility] Last Admin: 08/24/18 12:07 Dose: 1 applic Furosemide (Lasix -) 20 mg GT DAILY [facility] Last Admin: 08/24/18 11:07 Dose: 20 mg Insulin Aspart (Novolog Vial Sliding Scale -) 1 vial SQ ACHS [facility]; Protocol Last Admin: 08/24/18 12:22 Dose: 2 units Insulin Detemir (Levemir Vial) 25 units SQ HS [facility] Last Admin: 08/23/18 23:18 Dose: 25 units Losartan Potassium (Cozaar -) 50 mg PO DAILY [facility] Last Admin: 08/24/18 11:06 Dose: 50 mg Nystatin (Nystop Powder -) 1 applic TP BID [facility] Last Admin: 08/24/18 12:07 Dose: 1 applic Quetiapine Fumarate (Seroquel -) 100 mg GT BID [facility] Last Admin: 08/24/18 11:06 Dose: 100 mg Ranitidine HCl (Zantac Oral Solution -) 150 mg GT DAILY [facility] Last Admin: 08/24/18 11:06 Dose: 150 mg Vancomycin HCl (Vancomycin Oral Solution) 125 mg PO Q6HPO [facility] Last Admin: 08/24/18 12:08 Dose: 125 mg - Objective Vital Signs: Vital Signs Temperature 99.3 F 08/24/18 05:45 Pulse Rate 95 H 08/24/18 06:00 Respiratory Rate 28 H 08/24/18 09:00 Blood Pressure 119/63 08/24/18 06:00 O2 Sat by Pulse Oximetry (%) 99 08/23/18 21:00 Constitutional: Yes: Well Nourished, Calm Eyes: Yes: WNL HENT: Yes: WNL Neck: Yes: Supple (trach) Cardiovascular: Yes: Regular Rate and Rhythm, S1, S2 Respiratory: Yes: Rhonchi (few rhonchi) Gastrointestinal: Yes: Normal Bowel Sounds, Soft Extremities: Yes: WNL Edema: Yes Labs: CBC, BMP 08/23/18 07:00 08/24/18 06:00 INR, PTT INR 1.14 (0.83-1.09) H 08/16/18 01:00 Assessment/Plan Problem List - Problems (1) Chronic respiratory failure Code(s): J96.10 - CHRONIC RESPIRATORY FAILURE, UNSP W HYPOXIA OR HYPERCAPNIA (2) Lung malignancy Code(s): C34.90 - MALIGNANT NEOPLASM OF UNSP PART OF UNSP BRONCHUS OR LUNG (3) Anemia Code(s): D64.9 - ANEMIA, UNSPECIFIED (4) CKD (chronic kidney disease), stage III Code(s): N18.3 - CHRONIC KIDNEY DISEASE, STAGE 3 (MODERATE) (5) COPD (chronic obstructive pulmonary disease) Code(s): J44.9 - CHRONIC OBSTRUCTIVE PULMONARY DISEASE, UNSPECIFIED (6) Diabetes mellitus Code(s): E11.9 - TYPE 2 DIABETES MELLITUS WITHOUT COMPLICATIONS (7) GERD (gastroesophageal reflux disease) Code(s): K21.9 - GASTRO-ESOPHAGEAL REFLUX DISEASE WITHOUT ESOPHAGITIS (8) HTN (hypertension) Code(s): I10 - ESSENTIAL (PRIMARY) HYPERTENSION (9) Pleural effusion Code(s): J90 - PLEURAL EFFUSION, NOT ELSEWHERE CLASSIFIED (10) Tracheostomy care Code(s): Z43.0 - ENCOUNTER FOR ATTENTION TO TRACHEOSTOMY Assessment/Plan AC Mode of vent. Suction as needed. Trach is intact and a suction catheter can be passed in its entirety Noted DNR Prognosis poor Given advanced disease would opt for conservative/comfort measures DR NORRIS
--- NOTE | 2018-08-24 13:29 | DS ---
Physical Examination Vital Signs: Vital Signs Temperature 99.3 F 08/24/18 05:45 Pulse Rate 95 H 08/24/18 06:00 Respiratory Rate 28 H 08/24/18 09:00 Blood Pressure 119/63 08/24/18 06:00 O2 Sat by Pulse Oximetry (%) 99 08/23/18 21:00 Labs: CBC, BMP 08/23/18 07:00 08/24/18 06:00 Discharge Summary Reason For Visit: SEPSIS, PLEURAL EFFUSION, UTI Current Active Problems Acute on chronic respiratory failure with hypercapnia (Acute) Anemia (Acute) CKD (chronic kidney disease), stage III (Acute) COPD (chronic obstructive pulmonary disease) (Acute) Chronic respiratory failure (Acute) Decubitus ulcer (Acute) Diabetes mellitus (Acute) Functional quadriplegia (Acute) GERD (gastroesophageal reflux disease) (Acute) HTN (hypertension) (Acute) Hyponatremia (Acute) Leukocytosis (Acute) Lung malignancy (Acute) Pleural effusion (Acute) Sepsis (Acute) Tracheostomy care (Acute) UTI (urinary tract infection) due to urinary indwelling catheter (Acute) Condition: Fair - Instructions Diet, Activity, Other Instructions: CBCD and cmp q week Referrals: David Fitzgerald MD [Primary Care Provider] - Disposition: [facility] - Home Medications Comprehensive Discharge Medication List: Ambulatory Orders Acetaminophen [Tylenol .Regular Strength -] 650 mg GT DAILY PRN 08/16/18 Albuterol 2.5/Ipratropium 0.5 [Duoneb -] 1 neb IH QID 08/16/18 Collagenase Clostridium Hist. [Santyl -] 1 applic TP DAILY 08/16/18 Collagenase Clostridium Hist. [Santyl -] 1 applic TP DAILY tube 08/24/18 Furosemide [Lasix -] 20 mg GT DAILY tablet 08/24/18 Heparin - 5,000 unit SQ BID vial 08/24/18 Insulin (Levemir) [Levemir Vial] 25 units SQ HS units 08/24/18 Insulin Sliding Scale [Novolog Vial Sliding Scale -] 1 vial SQ ACHS units 08/24 Losartan Potassium [Cozaar -] 50 mg PO DAILY tablet 08/24/18 Nystatin Powder [Nystop Powder -] 1 applic TP BID applic 08/24/18 Ranitidine Oral Solution [Zantac Oral Solution -] 150 mg GT DAILY cup 08/24/18 Vancomycin Oral Solution 125 mg PO Q6HPO ml 08/24/18
== END 2018-08-24 17:19 | DRG 870 ==
LOC: JER 23:49 → JERBED 08-16 03:04 → UNDOADMIN 08-16 03:17 → J5S 08-16 23:08
PROVIDERS: ADMIT Internal Medicine; ATTEND Family Medicine
PROC: 5A1955Z Respiratory Ventilation, Greater than 96 Consecutive Hours (ICD-10-PCS; principal; 2018-08-16)
PROC: 30233N1 Transfusion of Nonautologous Red Blood Cells into Peripheral Vein, Percutaneous Approach (ICD-10-PCS; 2018-08-17)
DX: A41.9 Sepsis, unspecified organism (principal); L89.154 Pressure ulcer of sacral region, stage 4; J18.9 Pneumonia, unspecified organism; R53.2 Functional quadriplegia; J96.22 Acute and chronic respiratory failure with hypercapnia; C34.91 Malignant neoplasm of unspecified part of right bronchus or lung; J90 Pleural effusion, not elsewhere classified; A04.72 Enterocolitis due to Clostridium difficile, not specified as recurrent; N39.0 Urinary tract infection, site not specified; Z99.11 Dependence on respirator [ventilator] status; T83.511A Infection and inflammatory reaction due to indwelling urethral catheter, initial encounter; E87.1 Hypo-osmolality and hyponatremia; J98.11 Atelectasis; R65.20 Severe sepsis without septic shock; Y84.6 Urinary catheterization as the cause of abnormal reaction of the patient, or of later complication, without mention of misadventure at the time of the procedure; E10.22 Type 1 diabetes mellitus with diabetic chronic kidney disease; I12.9 Hypertensive chronic kidney disease with stage 1 through stage 4 chronic kidney disease, or unspecified chronic kidney disease; N18.3 Chronic kidney disease, stage 3 (moderate); Z43.0 Encounter for attention to tracheostomy; Z93.1 Gastrostomy status; Z66 Do not resuscitate; F32.9 Major depressive disorder, single episode, unspecified; J44.9 Chronic obstructive pulmonary disease, unspecified; R13.10 Dysphagia, unspecified; D64.9 Anemia, unspecified; R22.9 Localized swelling, mass and lump, unspecified; Z87.891 Personal history of nicotine dependence; Z79.4 Long term (current) use of insulin; D72.829 Elevated white blood cell count, unspecified; B96.29 Other Escherichia coli [E. coli] as the cause of diseases classified elsewhere; B95.4 Other streptococcus as the cause of diseases classified elsewhere
CPT/HCPCS: 36415; 36430; 36511; 36600; 71045-TC-FY; 71275-TC; 80048; 80053; 81003; 81015; 82375; 82803; 82947; 82962; 83036; 83050; 83605; 83735; 83930; 83935; 84100; 84300; 84484; 85025; 85027; 85610; 85730; 86850; 86900; 86901; 86922; 87040; 87070; 87086; 87186; 87205; 87324; 87449; 87899; 93005; 93010; 94002; 94640; 99285-25; G0480; J7030; P9038; P9058

== ENCOUNTER 2018-09-14 17:15 | Inpatient (IN) | payer OTHER ==
--- NOTE | 2018-09-14 17:44 | PDOC ---
History of Present Illness - General Chief Complaint: Revisit, Lab Variance Stated Complaint: ABNORMAL LABS Time Seen by Provider: 09/14/18 17:29 History Source: Patient - History of Present Illness Initial Comments: 09/14/18 19:38 77y/o F w/ PMHx htn, dm, ckd stage 3, advanced lung CA, h/o complicated hospital course in 04/2018 which resulted in tracheostomy and vent dependence, now admitted after being sent from [place] ([facility]) for elevated wbc 34.7 and K of 7. Patient his tachycardic and slightly hypotensive in the 100's systolic, known to have recurrent pseudomonas vent infections. Per the son pt had a carotid endartectomy at an OSH in April after which she had a severe reaction to anesthesia and was unable to be extubated. 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 Also known to have sacral ulcers due to prolonged immobility. Past History - Past Medical History Allergies/Adverse Reactions: Allergies Allergy/AdvReac Type Severity Reaction Status Date / Time clopidogrel Allergy Verified 08/16/18 00:20 Home Medications: Ambulatory Orders Acetaminophen [Tylenol .Regular Strength -] 650 mg GT DAILY PRN 08/16/18 Albuterol 2.5/Ipratropium 0.5 [Duoneb -] 1 neb IH QID 08/16/18 Collagenase Clostridium Hist. [Santyl -] 1 applic TP DAILY 08/16/18 Collagenase Clostridium Hist. [Santyl -] 1 applic TP DAILY tube 08/24/18 Furosemide [Lasix -] 20 mg GT DAILY tablet 08/24/18 Heparin - 5,000 unit SQ BID vial 08/24/18 Insulin (Levemir) [Levemir Vial] 25 units SQ HS units 08/24/18 Insulin Sliding Scale [Novolog Vial Sliding Scale -] 1 vial SQ ACHS units 08/24 Losartan Potassium [Cozaar -] 50 mg PO DAILY tablet 08/24/18 Nystatin Powder [Nystop Powder -] 1 applic TP BID applic 08/24/18 Ranitidine Oral Solution [Zantac Oral Solution -] 150 mg GT DAILY cup 08/24/18 COPD: Yes Diabetes: Yes (Type 1) GI Disorders: Yes (GERD, dysphagia) Disorders: Yes (CKD stage 3) HTN: Yes Psychiatric Problems: Yes (Depression) - Suicide/Smoking/Psychosocial Hx Smoking History: Former smoker Have you smoked in the past 12 months: No Hx Alcohol Use: No Drug/Substance Use Hx: No Substance Use Type: None Review of Systems - Review of Systems Able to Perform ROS?: No (non-verbal) *Physical Exam - Physical Exam General Appearance: Yes: Cachetic HEENT: positive: EOMI, BERE Respiratory/Chest: positive: Decreased Breath Sounds, Crackles, Other (on vent) Cardiovascular: positive: Tachycardia Gastrointestinal/Abdominal: positive: Normal Bowel Sounds, Flat, Soft. negative : Tender Integumentary: positive: Pale, Cold, Clammy Neurologic: negative: Responsive ED Treatment Course - LABORATORY CBC & Chemistry Diagram: 09/14/18 18:04 09/14/18 19:29 Medical Decision Making - Medical Decision Making 09/14/18 21:07 Patient septic, ordering septic workup: urine (prob from velazquez) vs pulm (from known recurrent psudomonas infections). Starting fluids and broad spectrum antibiotics. Hyperkalemia, treating with calcium gluconate Lactic acidosis: Giving Gentle hydration Hospitalist microblogged about patient. Called ICU resident Dr. Homero Sterling who is getting in touch with the patient's family to see if they want aggressive treatment outside of DNR or comfort measures only. *DC/Admit/Observation/Transfer Diagnosis at time of Disposition: Sepsis - Discharge Dispostion Decision to Admit order: Yes - Referrals - Patient Instructions - Post Discharge Activity
[2018-09-14] MEDS ORDERED: PIPERACILLIN/TAZOB 3.375 GM 3.375 GM in DEXTROSE 5%-WATER - 50 ML IVPB ONE (18:05)
[2018-09-14] MEDS ORDERED: VANCOMYCIN 1 GRAM (PRE-DOCKED) 1,000 MG/250 ML BAG IVPB ONE ×2 (18:05→18:14)
[2018-09-14] MEDS ORDERED: ACETAMINOPHEN 1000 MG/100 ML VIAL (NON FORMULARY) IVPB ONE (18:05)
[2018-09-14] MEDS ORDERED: ACETAMINOPHEN INJECTION 100 ML IVPB ONE (18:13)
[2018-09-14] MEDS ORDERED: PIPERACILLIN/TAZOB 3.375 GM 3.375 GM/50 ML BAG IVPB ONE ×2 (18:14→18:34)
[2018-09-14 18:20] LABS: BASO % 0.5 % (0-2.0); HEMATOCRIT 29.3 % (32.4-45.2); HEMOGLOBIN 9.4 GM/dL (10.7-15.3); LYMPH % 4.5 % (8-40); MCH 25.1 pg (25.7-33.7); MCHC 31.9 g/dl (32.0-36.0); MEAN CELL VOLUME 78.6 fl (80-96); MEAN PLT VOLUME 8.9 fl (7.5-11.1); MONO % 4.1 % (3.8-10.2); NEUT % 90.9 % (42.8-82.8); PLATELET COUNT 788 K/MM3 (134-434); RBC 3.73 M/mm3 (3.60-5.2); RDW 19.9 % (11.6-15.6)
[2018-09-14 18:33] LABS: INR 1.14 (0.83-1.09); PROTHROMBIN TIME (PATIENT) 13.5 SEC (9.7-13.0)
[2018-09-14 18:35] LABS: ACTIVATED PTT 21.5 SECONDS (25.2-36.5)
[2018-09-14 18:40] VITALS: BMI 38.6
[2018-09-14 19:04] LABS: ALBUMIN 1.9 g/dl (3.4-5.0); ALK PHOS 134 U/L (45-117); ANION GAP 13 MMOL/L (8-16); BILIRUBIN,TOTAL 0.5 mg/dL (0.2-1); CALCIUM 12.6 mg/dL (8.5-10.1); CHLORIDE 93 mmol/L (98-107); CO2 27 mmol/L (21-32); CREATININE 2.2 mg/dL (0.55-1.3); SGOT/AST 39 U/L (15-37); SGPT/ALT 16 U/L (13-61); SODIUM 132 mmol/L (136-145); TOT PROT 8.3 g/dl (6.4-8.2)
--- NOTE | 2018-09-14 19:18 | PDOC ---
Attending Attestation - HPI HPI: 09/14/18 20:15 The patient is a 77 year old female brought via EMS from [facility], with a significant past medical history of HTN, Diabetes Mellitus, sacral ulcers (prolonged immobility), CKD stage 3, Advanced Lung CA, tracheostomy and vent dependence after a complicated hospital course in 04/2018, as well as recurrent pseudomonas vent infections, who presents to the ED complaining of elevated WBC and Potassium. WBC of 34.7 and Potassium of 7. As per the family the patient had a carotid endartectomy in April 2018 and had a severe reaction to the anesthesia leading to her being unable to be extubated which led to the tracheostomy Allergies: clopidogrel Past surgical history: Tracheostomy Social History: Former smoker. <Theo Kolb - Last Filed: 09/14/18 20:15> - Resident Resident Name: Lloyd Troy - ED Attending Attestation I have performed the following: I have examined & evaluated the patient, The case was reviewed & discussed with the resident, I agree w/resident's findings & plan, Exceptions are as noted - Physicial Exam PE: 09/15/18 01:14 Agree with exam as documented by resident - Medical Decision Making 09/14/18 20:33 vent dependant with frequent pseudomonas infections sent from [facility] 2/2 fever, tachycardia, hypotension eval for sepsis, consider vent infection for source, but will eval broadly and tx with abx empirically. Prior cx shows zosyn sensitive pseudomonas infections f/u labs, abx, resus admit, consider ICU 09/15/18 01:14 After conversation with in patient team and family members, goals of care were clarified. Patient to be admitted to regular floor for care <Marques Salomon - Last Filed: 09/15/18 01:15>
[2018-09-14 19:33] LABS: HCG,QUALITATIVE URINE Negative
[2018-09-14 19:44] LABS: URINE APPEARANCE TURBID; URINE COLOR YELLOW; URINE GLUCOSE (UA) NEGATIVE (NEGATIVE); URINE KETONE NEGATIVE (NEGATIVE); URINE LEUK ESTERASE 3+ (NEGATIVE); URINE NITRITE NEGATIVE (NEGATIVE); URINE PROTEIN 3+ (NEGATIVE); URINE UROBILINOGEN NEGATIVE mg/dL (0.2-1.0)
[2018-09-14] MEDS ORDERED: SODIUM CHLORIDE 1,000 ML IV SCH (20:00)
[2018-09-14 20:23] VITALS: BP 100/67; PULSE 96; TEMP 101.5
[2018-09-14 20:23] LABS: GLUCOSE,RANDOM 393 mg/dL (74-106)
[2018-09-14 20:24] LABS: BLOOD UREA NITROGEN 131 mg/dL (7-18); POTASSIUM 8.1 mmol/L (3.5-5.1)
[2018-09-14] MEDS ORDERED: CALCIUM GLUCONATE 10% - 1,000 MG/10 ML VIAL IVPUSH ONE (20:30)
[2018-09-14] MEDS ORDERED: CALCIUM GLUCONATE 10% - 1,000 MG/10 ML VIAL ONE (20:33)
[2018-09-14 20:39] LABS: ALBUMIN 1.8 g/dl (3.4-5.0); ALK PHOS 114 U/L (45-117); ANION GAP 16 MMOL/L (8-16); BILIRUBIN,TOTAL 0.5 mg/dL (0.2-1); CHLORIDE 90 mmol/L (98-107); CO2 23 mmol/L (21-32); CREATININE 2.4 mg/dL (0.55-1.3); SGOT/AST 22 U/L (15-37); SGPT/ALT 15 U/L (13-61); SODIUM 129 mmol/L (136-145); TOT PROT 7.4 g/dl (6.4-8.2)
[2018-09-14 20:42] LABS: BLOOD UREA NITROGEN 130 mg/dL (7-18); GLUCOSE,RANDOM 448 mg/dL (74-106); POTASSIUM 7.8 mmol/L (3.5-5.1)
--- NOTE | 2018-09-14 20:49 | HP ---
Admitting History and Physical - Primary Care Physician PCP: Jewels Cancino - Admission Chief Complaint: Abnormal Lab Values, Sepsis History of Present Illness: This is a 77 y/o woman from [facility] with a significant medical history of Advanced Lung Ca, Squamous Cell Carcinoma, COPD, Acute Respiratory Failure with Hypercapnia, s/p Tracheostomy, Ventilator Dependent, HTN, DM, CKD Stage 3, GERD , MDD, Pressure Ulcer- Sacral Region, L- heel Necrosis, R, Lateral Foot Necrosis, MRSA in Sputum. Who presents to the ED for abnormal lab values- elevated WBC, K 7.0. On arrival to the ED patient is noted to be Septic with T- Max 102.3, BP 101/43 Lactic Acid 8.5, K 7.8. Hyperkalemia Protocol initiated in the ED, Chest Xray report/image- right pleural effusion, right infiltrate, IVF, Vancomycin and Zosyn were started in the ED for Severe Sepsis secondary to Pneumonia, UTI. Patient will be admitted for Severe Sepsis secondary to Pneumonia, UTI, Hyperkalemia, Acute on Chronic Hypercapnia Respiratory Failure, Dehydration, CKD. Patient has a DNR, would place in ICU, however based on family 's wishes no aggressive measures, per Dr. Homero Sterling, ICU resident. Patient will be admitted to M/S Ventilator Floor for continued care. History Source: Medical Record, Transfer Record Limitations to Obtaining History: Clinical Condition, Unresponsive - Past Medical History Pulmonary: Yes: Cancer (advanced lung ca), COPD, O2 Dependent, Previously Intubated, Other (trach with ventilator dependent) Gastrointestinal: Yes: Other (PEG) Renal/: Yes: Renal Failure Infectious Disease: Yes: MRSA (sputum) Psych: Yes: Depression Musculoskeletal: Yes: Chronic low back pain Endocrine: Yes: Diabetes Mellitus - Past Surgical History Past Surgical History: Yes: Carotid Endarterectomy (left) Additional Past Surgical History: Tracheostomy PEG Placement - Advance Directives Advance Directives: Yes: DNR - Smoking History Smoking history: Former smoker Have you smoked in the past 12 months: No - Alcohol/Substance Use Hx Alcohol Use: No History of Substance Use: reports: None - Social History Usual Living Arrangement: Yes: [facility] ADL: Support Services History of Recent Travel: No Home Medications - Allergies Allergies/Adverse Reactions: Allergies Allergy/AdvReac Type Severity Reaction Status Date / Time clopidogrel Allergy Verified 08/16/18 00:20 - Home Medications Home Medications: Ambulatory Orders Acetaminophen [Tylenol .Regular Strength -] 650 mg GT DAILY PRN 08/16/18 Albuterol 2.5/Ipratropium 0.5 [Duoneb -] 1 neb IH QID 08/16/18 Collagenase Clostridium Hist. [Santyl -] 1 applic TP DAILY 08/16/18 Collagenase Clostridium Hist. [Santyl -] 1 applic TP DAILY tube 08/24/18 Furosemide [Lasix -] 20 mg GT DAILY tablet 08/24/18 Heparin - 5,000 unit SQ BID vial 08/24/18 Insulin (Levemir) [Levemir Vial] 25 units SQ HS units 08/24/18 Insulin Sliding Scale [Novolog Vial Sliding Scale -] 1 vial SQ ACHS units 08/24 Losartan Potassium [Cozaar -] 50 mg PO DAILY tablet 08/24/18 Nystatin Powder [Nystop Powder -] 1 applic TP BID applic 08/24/18 Ranitidine Oral Solution [Zantac Oral Solution -] 150 mg GT DAILY cup 08/24/18 Family Disease History - Family Disease History Family Disease History: Diabetes: Son, CA: Son Review of Systems Unable to obtain ROS, reason: TBI, Trach- Vent dep Physical Examination Vital Signs: Vital Signs Temperature 101.5 F H 09/14/18 19:15 Pulse Rate 96 H 09/14/18 19:15 Respiratory Rate 22 H 09/14/18 19:15 Blood Pressure 100/67 09/14/18 19:15 O2 Sat by Pulse Oximetry (%) 99 09/14/18 17:30 Constitutional: Yes: Other (unresponsive-baseline, trach-vent dependent) Eyes: Yes: Conjunctiva Clear HENT: Yes: Atraumatic, Normocephalic, Other (dry mucosa) Neck: Yes: Supple, Other (trach-vent dependent) Cardiovascular: Yes: Regular Rate and Rhythm, S1, S2 Respiratory: Yes: Diminished (right lobes), Mechanically Ventilated (trach), Rhonchi Gastrointestinal: Yes: Normal Bowel Sounds, Abdomen, Obese, Other (PEG- LMQ) ...Rectal Exam: Yes: WNL Renal/: Yes: Lin Present (pyuria noted in tubing, dark yellow urine in drainage bag) Breast(s): Yes: WNL Edema: No Peripheral Pulses WNL: Yes Peripheral Pulses: Left Doralis Pedis: 1+, Right Dorsalis Pedis: 1+ Integumentary: Yes: Pressure Ulcer (sacral wound Stage 4 L- heel ulcer R- lateral foot ulcer) Neurological: Yes: Unresponsive (at baseline) Psychiatric: Yes: Other (non-verbal, unresponsive- 2/2 TBI at baseline) Labs: CBC, BMP 09/14/18 18:04 09/14/18 19:29 Laboratory Results - last 24 hr 09/14/18 09/14/18 09/14/18 18:04 18:04 18:04 WBC 37.0 H* RBC 3.73 Hgb 9.4 L Hct 29.3 L MCV 78.6 L MCH 25.1 L MCHC 31.9 L RDW 19.9 H Plt Count 788 H MPV 8.9 D Absolute Neuts (auto) 33.6 H Neutrophils % 90.9 H Neutrophils % (Manual) 90.0 H Band Neutrophils % 2.0 Lymphocytes % 4.5 L Lymphocytes % (Manual) 4.0 L Monocytes % 4.1 Monocytes % (Manual) 4 D Eosinophils % 0.0 D Basophils % 0.5 Nucleated RBC % 0 Platelet Estimate Increased Platelet Comment No clumping noted Anisocytosis 1+ PT with INR 13.50 H INR 1.14 H PTT (Actin FS) 21.5 L Sodium 132 L Potassium 8.1 H* Chloride 93 L Carbon Dioxide 27 Anion Gap 13 BUN 131 H* Creatinine 2.2 H Creat Clearance w eGFR 21.59 Random Glucose 393 H* Lactic Acid Calcium 12.6 H Phosphorus Magnesium Total Bilirubin 0.5 AST 39 H ALT 16 Alkaline Phosphatase 134 H Troponin I 0.07 H B-Natriuretic Peptide Total Protein 8.3 H Albumin 1.9 L Urine Color Urine Appearance Urine pH Ur Specific [place] Urine Protein Urine Glucose (UA) Urine Ketones Urine Blood Urine Nitrite Urine Bilirubin Urine Urobilinogen Ur Leukocyte Esterase Urine WBC (Auto) Urine RBC (Auto) Urine HCG, Qual 09/14/18 09/14/18 09/14/18 18:04 18:04 18:04 WBC RBC Hgb Hct MCV MCH MCHC RDW Plt Count MPV Absolute Neuts (auto) Neutrophils % Neutrophils % (Manual) Band Neutrophils % Lymphocytes % Lymphocytes % (Manual) Monocytes % Monocytes % (Manual) Eosinophils % Basophils % Nucleated RBC % Platelet Estimate Platelet Comment Anisocytosis PT with INR INR PTT (Actin FS) Sodium Potassium Chloride Carbon Dioxide Anion Gap BUN Creatinine Creat Clearance w eGFR Random Glucose Lactic Acid 8.5 H* Calcium Phosphorus Magnesium Total Bilirubin AST ALT Alkaline Phosphatase Troponin I Cancelled B-Natriuretic Peptide Total Protein Albumin Urine Color Yellow Urine Appearance Turbid Urine pH 9.0 H D Ur Specific [place] 1.022 Urine Protein 3+ H Urine Glucose (UA) Negative Urine Ketones Negative Urine Blood Negative Urine Nitrite Negative Urine Bilirubin 4.0 Urine Urobilinogen Negative Ur Leukocyte Esterase 3+ H Urine WBC (Auto) None Urine RBC (Auto) None Urine HCG, Qual Negative 19:29 WBC RBC Hgb Hct MCV MCH MCHC RDW Plt Count MPV Absolute Neuts (auto) Neutrophils % Neutrophils % (Manual) Band Neutrophils % Lymphocytes % Lymphocytes % (Manual) Monocytes % Monocytes % (Manual) Eosinophils % Basophils % Nucleated RBC % Platelet Estimate Platelet Comment Anisocytosis PT with INR INR PTT (Actin FS) Sodium 129 L Potassium 7.8 H* Chloride 90 L Carbon Dioxide 23 Anion Gap 16 BUN 130 H* Creatinine 2.4 H Creat Clearance w eGFR 19.52 Random Glucose 448 H* Lactic Acid Calcium 12.0 H Phosphorus Magnesium Total Bilirubin 0.5 AST 22 ALT 15 Alkaline Phosphatase 114 Troponin I B-Natriuretic Peptide Total Protein 7.4 Albumin 1.8 L Urine Color Urine Appearance Urine pH Ur Specific [place] Urine Protein Urine Glucose (UA) Urine Ketones Urine Blood Urine Nitrite Urine Bilirubin Urine Urobilinogen Ur Leukocyte Esterase Urine WBC (Auto) Urine RBC (Auto) Urine HCG, Qual Current Medications Generic Name Dose Route Start Last Admin Trade Name Freq PRN Reason Stop Dose Admin Acetaminophen 1,000 mg 09/15/18 01:03 Ofirmev Injection - IVPB Q6H PRN PAIN OR FEVER Sodium Chloride 1,000 mls @ 150 mls/hr 09/14/18 20:00 09/14/18 20:12 Normal Saline - IV 150 mls/hr ASDIR SARITA Administration Piperacillin Sod/Tazobactam 50 mls @ 100 mls/hr 09/15/18 21:00 Sod 2.25 gm/ Dextrose IVPB Q6H-IV SARITA Protocol Piperacillin Sod/Tazobactam 50 mls @ 100 mls/hr 09/15/18 03:45 Sod 2.25 gm/ Dextrose IVPB 09/15/18 15:29 Q6H-IV SARITA Intake & Output 09/12/18 09/13/18 09/14/18 09/15/18 23:59 23:59 23:59 23:59 Output Total 400 Balance -400 Weight 83.915 kg Imaging - Results Chest X-ray: Report Reviewed, Image Reviewed Assessment/Plan This is a 77 y/o woman admitted for Severe Sepsis secondary to Pneumonia, R- Pleural Effusion, UTI, Hyperkalemia, Electrolyte Imbalances, CKD for further evaluation of their emergent condition. Plan: 1. Severe Sepsis secondary to Pneumonia, UTI vs Sacral Decubitus Ulcer Admit to ventilator floor [id number] Score 4 qSOFA 2 Vent Settings- AC, TV-360, R-18, FIO2 50%, PEEP-5 Trach care Blood Cultures-pending Urine Cultures-pending Vancomycin, Zosyn given in ED Continue Vancomycin and Zosyn renal dosing Will need Sputum Culture Appreciate Pulmonology consult Appreciate ID consult Appreciate Cardiology consult Appreciate Nephrology consult Serial CMPs Q4h Repeat CBC in am HOB Maintain MAP> 65 Monitor vitals Tylenol prn Aspiration Precautions 2.UTI Urinalysis +3 protein, +3 leukocyte esterase Urine Culture-pending Continue Zosyn Monitor vitals Monitor CBC 3. Hyperkalemia Hyperkalemia Protocol given in ED Per phone discussion with Dr. Sterling, ICU resident who spoke with family- no aggressive measures Patient will not be placed in ICU or Telemetry for cardiac monitoring EKG- no peaked T waves Monitor CMP Appreciate Cardiology consult 4. Electrolyte Imbalances Likely secondary to cardiorenal disease See above 5. Hypertension Hypotensive secodnary to Severe Sepsis Will hold home meds Close monitoring of renal function 6.Diabetes Mellitus Hyperglycemia Likely secondary to Severe Sepsis Insulin given during Hyperkalemia Protocol Continue close monitoring of BMP HgbA1c in am ISS when diet resumed 7. Lung Ca advanced Consider Oncology consult Monitor CBC 8. Integumentary Pressure Ulcers- Sacral Unstageable, L- heel Necrosis, R- lateral foot Necrosis Wound Care Allevyn dressing 9. Functional Quadriplegia Likely secondary to TBI Requires total care Turn Q2h Fer Lift as needed Heel protectors Fall Precautions FEN Gentle IV hydration Replete Lytes as indicated Hold PEG feedings, tonight 2/2 Severe Sepsis DVT ppx SCDs Heparin SQ Code Status: DNR, family declines aggressive measures Dispo: Requires Inpatient Care Addendum Notified by primary RN, that the patient at 02:45, pronounced by Dr. Willie Salomon, ED Attending Family members were in attendance Spoke with the patient's Sons, offered my condolences. Visit type - Emergency Visit Emergency Visit: Yes ED Registration Date: 09/14/18 Care time: The patient presented to the Emergency Department on the above date and was hospitalized for further evaluation of their emergent condition. - New Patient This patient is new to me today: Yes Date on this admission: 09/14/18 - Critical Care Critical Care patient: Yes Total Critical Care Time (in minutes): 35 Critical Care Statement: The care of this patient involved high complexity decision making to prevent further life threatening deterioration of the patient 's condition and/or to evaluate & treat vital organ system(s) failure or risk of failure.
[2018-09-14] MEDS ORDERED: DEXTROSE 50%-WATER - 25 GM/50 ML VIAL IVPUSH ONE (21:10)
[2018-09-14] MEDS ORDERED: INSULIN REGULAR HUMAN 100 UNITS/ML *VIAL IVPUSH ONE (21:10)
[2018-09-14] MEDS ORDERED: SODIUM POLYSTYRENE SULFONATE 15 GM/60 ML BOTTLE PO ONE (21:10)
[2018-09-14] MEDS ORDERED: DEXTROSE 50%-WATER 25 GM/50 ML DISP.SYRIN ONE (21:22)
[2018-09-14] MEDS ORDERED: SODIUM POLYSTYRENE SULFONATE 15 GM/60 ML BOTTLE ONE (21:22)
[2018-09-14] MEDS ORDERED: INSULIN REGULAR HUMAN 100 UNITS/ML *VIAL ONE (21:23)
[2018-09-14] MEDS ORDERED: MUPIROCIN 2% TOPICAL OINTMENT FOR DECOLONIZATION NS SCH (22:00)
[2018-09-14] MEDS ORDERED: CHLORHEXIDINE GLUCONATE 4% CLEANSER FOR DECOLONIZATION TP SCH (22:00)
[2018-09-14 22:54] LABS: ANISOCYTOSIS 1+
[2018-09-14 22:55] LABS: PLATELET ESTIMATE INCREASED
--- NOTE | 2018-09-14 23:21 | PN ---
Progress Note (short form) - Note Progress Note: [facility] here from [facility] for leukocytosis and hyperkalemia. Found to have WBC count of 37, Potassium of 8.1, BUN of 130 and Cr of 2.4, lactic acid of 8.5, Calcium of 12, and troponin of 0.07. ER team requesting ICU admission. Patient known to me from prior interaction on heme/onc service. Son called and case discussed with him. Prognosis and current condition explained and discussed. Questions answered. long conversation about goals of care. Patient's son called Dr. Fay who is patient's nephew and son called back the ICU to inform me that he does not want dialysis and as of right now the furthest he wants to go is a central line oif she needs it. Patient is already trached and he does not want her resuscitated. Patient will not be admitted to ICU. Patient will go to the vent floor on [address]. If family decides they would like further intervention done then will admit to ICU. Case discussed with Dr. Looney who will see the patient in consultation for pulmonology.
[2018-09-15] MEDS ORDERED: ACETAMINOPHEN 1000 MG/100 ML VIAL (NON FORMULARY) IVPB PRN (01:03)
[2018-09-15 02:51] LABS: ALBUMIN 1.5 g/dl (3.4-5.0); ALK PHOS 113 U/L (45-117); ANION GAP 20 MMOL/L (8-16); BILIRUBIN,TOTAL 0.4 mg/dL (0.2-1); CALCIUM 11.8 mg/dL (8.5-10.1); CHLORIDE 96 mmol/L (98-107); CO2 18 mmol/L (21-32); CREATININE 2.6 mg/dL (0.55-1.3); SGOT/AST 239 U/L (15-37); SGPT/ALT 171 U/L (13-61); SODIUM 134 mmol/L (136-145); TOT PROT 6.4 g/dl (6.4-8.2)
[2018-09-15 02:52] LABS: GLUCOSE,RANDOM 441 mg/dL (74-106)
[2018-09-15 02:53] LABS: BLOOD UREA NITROGEN 143 mg/dL (7-18); POTASSIUM 8.4 mmol/L (3.5-5.1)
[2018-09-15 02:53] LABS: MAGNESIUM 3.1 mg/dL (1.8-2.4)
[2018-09-15] MEDS ORDERED: PIPERACILLIN/TAZOB 2.25 GM 2.25 GM in DEXTROSE 5%-WATER - 50 ML IVPB SCH ×2 (03:45→21:00)
== END 2018-09-15 05:12 | disposition expired | DRG 871 ==
LOC: JER 17:15 → JERBED 20:57 → UNDOADMIN 23:47 → JERBED 23:47
PROVIDERS: ADMIT Internal Medicine; ATTEND Family Medicine
PROC: 5A1935Z Respiratory Ventilation, Less than 24 Consecutive Hours (ICD-10-PCS; principal; 2018-09-15)
DX: A41.9 Sepsis, unspecified organism (principal); L89.154 Pressure ulcer of sacral region, stage 4; R53.2 Functional quadriplegia; J18.9 Pneumonia, unspecified organism; J96.22 Acute and chronic respiratory failure with hypercapnia; N39.0 Urinary tract infection, site not specified; E87.2 Acidosis; C34.90 Malignant neoplasm of unspecified part of unspecified bronchus or lung; Z99.11 Dependence on respirator [ventilator] status; R65.20 Severe sepsis without septic shock; E87.5 Hyperkalemia; D72.829 Elevated white blood cell count, unspecified; K21.9 Gastro-esophageal reflux disease without esophagitis; I12.9 Hypertensive chronic kidney disease with stage 1 through stage 4 chronic kidney disease, or unspecified chronic kidney disease; N18.3 Chronic kidney disease, stage 3 (moderate); E86.0 Dehydration; E11.65 Type 2 diabetes mellitus with hyperglycemia; Z93.0 Tracheostomy status
CPT/HCPCS: 36415; 71045-TC-FY; 80053; 81003; 81015; 82962; 83605; 83735; 83880; 84100; 84484; 84703; 85025; 85610; 85730; 87040; 87086; 87186; 99285-25; J0131; J7030